=== PATIENT | female | born 1960 | race Two or more races ===

== ENCOUNTER 2023-03-20 10:25 | Inpatient (IN) | payer MEDICAID ==
[~2023-03-20] VITALS: Ht 152.4 cm; Wt 157.4 kg
--- NOTE | 2023-03-20 08:00 | NUR ---
LUG LOADER OPENING NOTE RECEIVED PT IN BED, ALERT , ORIENTED TIMES 4 , NON VERBAL DUE TO HAS TRACHEOSTOMY , WITH COLAR MASK O2 AT 6 L . PATIENT BREATHING NON LABORED , . O2 SAT 100 % . PATIENT HAS G TUBE IN PLACE INTACT AND PATENT, PATIENT HAS IV ACSESS ON R HAND 20G NO S/S OF INFILTRATION. BED IS AT LOWEST POSITION , BED SIDE RAILS ARE UP CALL LIGHT WITHIN REACH . WILL CONTINUE TO MONITOR.
--- NOTE | 2023-03-20 10:41 | NUR ---
CALL [facility] FOR GAS ENGINE OPERATOR COMPRESSORS AND TRANSPORT. TEL [phone] / FAX: [phone]
--- NOTE | 2023-03-20 10:54 | NUR ---
PATIENT CAME WITH C/O LOW BLOOD PRESSURE AFTER DIALYSIS,ON TRACH COLLAR WITH OXYGEN 6 LIT.ALERT .PLACED ON BED CONNECT TO MONITOR AND POX
--- NOTE | 2023-03-20 10:55 | NUR ---
IV INSERTED ON RT HAND 20G ,BLOOD COLLECTED AND SEND TO LAB.
[2023-03-20 11:20] LABS: BASOPHILS % (AUTO) 0.6 % (0.0-2.0); EOSINOPHILS % (AUTO) 6.2 % (0.0-6.0); HEMATOCRIT 29 % (33-45); HEMOGLOBIN 8.6 g/dL (11.5-14.8); LYMPHOCYTES # (AUTO) 1.5 K/uL (0.8-4.8); LYMPHOCYTES % (AUTO) 21.5 % (20.0-44.0); MEAN CORPUSCULAR HGB CONC 30 g/dl (31.0-36.0); MEAN CORPUSCULAR VOLUME 85 fL (82-100); MONOCYTES # (AUTO) 0.7 K/uL (0.1-1.30); MONOCYTES % (AUTO) 10.6 % (2.0-12.0); NEUTROPHILS # (AUTO) 4.2 K/uL (1.8-8.9); NEUTROPHILS % (AUTO) 61.1 % (43.0-81.0); PLATELET COUNT (AUTO) 322 K/uL (150-450); RED BLOOD CELL COUNT(AUTO) 3.37 MIL/uL (4.0-5.2)
[2023-03-20 11:29] LABS: CALCIUM, SERUM 8.7 mg/dL (8.5-10.1); CARBON DIOXIDE 33 mmol/L (21-32); CHLORIDE 99 mmol/L (98-107); CREATININE 3.6 mg/dL (0.6-1.3); GLUCOSE 80 mg/dL (74-106); POTASSIUM 3.4 mmol/L (3.5-5.1); SODIUM SERUM 137 mmol/L (136-145); UREA NITROGEN, BLOOD 12 mg/dL (7-18)
--- NOTE | 2023-03-20 12:40 | NUR ---
DR WAGNER,AN INFORMED REGARDING HYPOTENSION OF PT. AWAITING FOR ORDERS
--- NOTE | 2023-03-20 12:46 | NUR ---
CALLED DIALYSIS AND WAS TOLD THEY GAVE 2LITERS DUE TO HYPOTENSION
[2023-03-20] MEDS ORDERED: IV NS 0.9% 500 ML IV ONE (13:00)
--- NOTE | 2023-03-20 13:41 | NUR ---
DR PADRON INFORMED OF [facility] 87/38, PT WILL BE FOR ADMISSION.
--- NOTE | 2023-03-20 14:17 | NUR ---
DR PADRON INFORMED ABOUT LATEST VS, /60, LA 66, 100% RR 13
[2023-03-20] MEDS ORDERED: BENZ1LOZ58 MM (14:28)
[2023-03-20] MEDS ORDERED: GUAI100S11 PO (14:28)
[2023-03-20] MEDS ORDERED: PATI8.4P PO (14:28)
[2023-03-20] MEDS ORDERED: SENN-261 PO (14:28)
[2023-03-20] MEDS ORDERED: ROSU20TA2 PO (14:28)
[2023-03-20] MEDS ORDERED: SIME80TA15 PO (14:28)
[2023-03-20] MEDS ORDERED: MAG30ORA PO (14:28)
[2023-03-20] MEDS ORDERED: GABA-532 PO (14:28)
[2023-03-20] MEDS ORDERED: HYDR50TA61 PO (14:28)
[2023-03-20] MEDS ORDERED: PHEN177S31 MM (14:28)
[2023-03-20] MEDS ORDERED: ONDA-97 PO (14:28)
[2023-03-20] MEDS ORDERED: CALC500T13 PO (14:28)
[2023-03-20] MEDS ORDERED: FLUT16SP (14:28)
[2023-03-20] MEDS ORDERED: BUPR1FIL SL (14:28)
[2023-03-20] MEDS ORDERED: ASPI-992 PO (14:28)
[2023-03-20] MEDS ORDERED: ALBU2.5V38 IH (14:28)
[2023-03-20] MEDS ORDERED: TRAZ-182 PO (14:28)
[2023-03-20] MEDS ORDERED: OXYM-12 (14:28)
[2023-03-20] MEDS ORDERED: DICL100G34 TP (14:28)
[2023-03-20] MEDS ORDERED: POLY17PO4 PO (14:28)
[2023-03-20] MEDS ORDERED: CETI-108 PO (14:28)
[2023-03-20] MEDS ORDERED: HEPA50008 SQ (14:28)
[2023-03-20] MEDS ORDERED: AMLO2.5T4 PO (14:28)
[2023-03-20] MEDS ORDERED: FLUO20TA28 PO (14:28)
[2023-03-20] MEDS ORDERED: LIDO1ADH82 TP (14:28)
[2023-03-20] MEDS ORDERED: SEVE800T8 PO (14:28)
[2023-03-20] MEDS ORDERED: DIPH28CR10 TP (14:28)
[2023-03-20] MEDS ORDERED: FOLI0.8T2 PO (14:28)
--- NOTE | 2023-03-20 14:39 | NUR ---
[facility] CALLED MACHINE SPRAYER PAGED.
--- NOTE | 2023-03-20 15:04 | NUR ---
IN MAN INFORMED OF LATEST VS
--- NOTE | 2023-03-20 15:44 | NUR ---
DR PADRON INFORMED REGARDING OF NON ADMITTANCE TO TELE, DUE TO SYSTOLIC OF 72
--- NOTE | 2023-03-20 16:06 | NUR ---
COVID SWAB TAKEN AND SEND TO LAB.
--- NOTE | 2023-03-20 16:24 | NUR ---
GOT BED 119-1 ADMITTING INFORMED.
--- NOTE | 2023-03-20 16:35 | NUR ---
GAVE REPORT TO FRANKIE VALENCIA FOR JENNIFER, BED 119-1
--- NOTE | 2023-03-20 17:40 | NUR ---
international relations teacher note PATIENT IS ALERT , ORIENTED TIMES 4 , NON VERBAL DUE TO HAS TRACHEOSTOMY , WITH COLAR O 2 AT 5 L . PATIENT BREATHING NON LABORED , .UPON ADMISSION BP 138/78 , HR 69 , TEMP 98.2 , RESP 22 , O2 SAT 99 % . PATIENT C/O PAIN OF THE LOW BACK / , HAS SKIN LACERATION O0N THE RIGHT BUTTOCK , WOUND CONSULT ORDERED . PATIENT HAS G TUBE IN PLACE , BUT INSISTING THAT SHE CAN SWALLOW , SWALLOW EVAL ORDERED . B PATIENT HAS IV ACSESS ON R HAND 22 G .BED IS AT LOWEST POSITION , BED DIDE RAILS ARE UP CALL LIGHT WITHIN REACH , WILL CONTINUE TO MONITOR.
--- NOTE | 2023-03-20 17:57 | NUR ---
patient transfered to [facility]
[2023-03-20] MEDS ORDERED: MAG HYDROX/AL HYDROX/SIMETH 30 ML UDC PO PRN (18:30)
[2023-03-20] MEDS ORDERED: ZOLPIDEM TARTRATE 5 MG TABLET PO PRN (18:30)
[2023-03-20] MEDS ORDERED: ONDANSETRON HCL/PF 4 MG/2 ML VIAL IVP PRN (18:30)
[2023-03-20] MEDS ORDERED: Z GUARD REMEDY 4 OZ OINT TP PRN (18:30)
[2023-03-20] MEDS ORDERED: MAGNESIUM HYDROXIDE 30 ML UDC PO PRN (18:30)
[2023-03-20] MEDS ORDERED: ACETAMINOPHEN 325 MG TABLET PO PRN (18:30)
--- NOTE | 2023-03-20 18:59 | NUR ---
rn closing note PATIENT IS ALERT , ORIENTED TIMES 4 , NON VERBAL DUE TO HAS TRACHEOSTOMY , WITH COLAR O 2 AT 6 L . PATIENT BREATHING NON LABORED , . O2 SAT 99 % . PATIENT C/O PAIN OF THE LOW BACK 11/28 , HAS SKIN LACERATION ON THE RIGHT BUTTOCK , WOUND CONSULT ORDERED . PATIENT HAS G TUBE IN PLACE , BUT INSISTING THAT SHE CAN SWALLOW , SWALLOW EVAL ORDERED . PATIENT HAS IV ACSESS ON R HAND 22 G .BED IS AT LOWEST POSITION , BED DIDE RAILS ARE UP CALL LIGHT WITHIN REACH , WILL ENDORSE DATACAP DEVELOPER NURSE TO FALLOW POC
--- NOTE | 2023-03-21 06:46 | NUR ---
GENERAL TECHNICIAN CLOSING NOTE PT IN BED AWAKE, ON COOL AEROSOL 8L FIO2 35%, NO DISTRESS OR DISCOMFORT NOTED. DENIES PAIN. ALL NEEDS ATTENDED. KEEP DRY AND CLEAN. SIDE RAILS UP, CALL LIGHT WITHIN REACH, WILL ENDORSE TO DAY SHIFT NURSE FOR CONTINUITY OF CARE.
[2023-03-21 06:47] LABS: CALCIUM, SERUM 9.1 mg/dL (8.5-10.1); MAGNESIUM 2.6 mg/dL (1.8-2.4); PHOSPHORUS 4.3 mg/dL (2.5-4.9); POTASSIUM 4.6 mmol/L (3.5-5.1)
--- NOTE | 2023-03-21 07:15 | NUR ---
TELE OPEN NOTE: ALERT X3. REORIENTED NEEDED. TRACH IN PLACE, WITH COOL AEROSOL AT 35 % FIO2. MODERATE SECRETIONS, SUCTIONED NEEDED. TAILING HAND SINUS RHYTHM 75. RIGHT HAND IV G20 SALINE LOCKED, PATENT. NO S/S OF COMPLICATIONS. LEFT ARM AV FISTULA PER PATIENT DONE 2 WEEKS AGO AND NO IN USE YET. LEFT UPPER CHEST HD CATHETER WITH CLEAN DRESSING. NO S/S OF COMPLICATIONS. GASTRIC TUBE IN PLACE CLAMPED. PATIENT REQUESTING TO EAT BY MOUTH, PER RESIDENT SHE HAS BEEN EATING PRIOR TO HOSPITALIZATION AND GT NO IN USE. REQUESTING TO EAT. EXPLAINED WILL WAIT FOR SWALLOW EVALUATION. HOB ELEVATED. BILATERAL HALF SIDE RAILS UP X2. BED IN LOW POSITION, LOCKED AND EXIT ALARM ON. CALL LIGHT IN REACH.
[2023-03-21 07:18] LABS: BASOPHILS % (AUTO) 0.7 % (0.0-2.0); EOSINOPHILS % (AUTO) 7.1 % (0.0-6.0); HEMATOCRIT 28 % (33-45); HEMOGLOBIN 8.4 g/dL (11.5-14.8); LYMPHOCYTES # (AUTO) 1.6 K/uL (0.8-4.8); LYMPHOCYTES % (AUTO) 22.4 % (20.0-44.0); MEAN CORPUSCULAR HGB CONC 31 g/dl (31.0-36.0); MEAN CORPUSCULAR VOLUME 85 fL (82-100); MONOCYTES # (AUTO) 0.9 K/uL (0.1-1.30); MONOCYTES % (AUTO) 13.5 % (2.0-12.0); NEUTROPHILS % (AUTO) 56.3 % (43.0-81.0); PLATELET COUNT (AUTO) 321 K/uL (150-450); RED BLOOD CELL COUNT(AUTO) 3.27 MIL/uL (4.0-5.2)
--- NOTE | 2023-03-21 07:30 | NUR ---
GUDELIA ASHFORD INFORMED PATIENT REQUESTING TO EAT AND NO SPEECH THERAPIST ON SITE AT THIS TIME.
[2023-03-21 08:00] VITALS: BP 150/65; TEMP 98.2
[2023-03-21] MEDS: MIDODRINE HCL (5MG) 5 MG TABLET PO SCH ×3 (09:00→18:09)
--- NOTE | 2023-03-21 09:12 | NUR ---
DOCTOR GUDELIA INFORMED NO SPEECH THERAPIST AVAILABLE YET. PATIENT MIDODRINE HELD DUE TO BP 150/65, PER SON FARIDA HERCULES PATIENT ON SUBOXONE SL IF PATIENT DOES NOT GET IT SHE GETS IRRITATED. [place] [facility] INFORMED PATIENT HAS A GT, AND REMAINS NPO. IN MED RECON MEDS SUBOXENE IS ON THE LIST.
--- NOTE | 2023-03-21 09:34 | NUR ---
DOCTOR PELEG HERE ASSESSED PATIENT AND INFORMED SWALLOW EVAL BY SPEECH PENDING. DOCTOR PELEG WITH ORDER TO TO A SWALLOW EVAL SCREEN AT BEDSIDE BY NURSING WITH NO PMV DUE TO PATIENT HAS NOT BEEN TOLERATING IT PREVIOUSLY, WITH CUFF DEFLATED, GIVE SIP OF WATER IF TOLERATED MAY ADVANCE TO [facility] SOFT DIET.
--- NOTE | 2023-03-21 10:47 | NUR ---
DOCTOR PRADO AND DOCTOR GALEAS INFORMED PATIENT SCREEN DONE, AND PATIENT WAS ABLE TO DRINK PO FLUIDS WITH NO S/S OF ASPIRATION, NO COUGH, NO DISTRESS NOTED. PATIENT WITH NO TEETH PER PATIENT HER DENTURES BROKE BUT SHE HAS BEEN EATING MECHANICAL SOFT DIET FOR THE LAST 3 WEEKS WITH NO TEETH, DOES NOT WANT PUREE. DOCTOR PRADO TO RESUME DIET MECHANICAL SOFT WILL CONTINUE TO MONITOR.
[2023-03-21] MEDS ORDERED: MAG HYDROX/AL HYDROX/SIMETH 30 ML UDC PO PRN (15:30)
[2023-03-21] MEDS ORDERED: ALBUTEROL FS 2.5 MG/3 ML VIAL.NEB NEB PRN (15:30)
[2023-03-21] MEDS ORDERED: ONDANSETRON HCL/PF 4 MG/2 ML VIAL IV PRN (15:30)
[2023-03-21] MEDS ORDERED: MENTHOL/CETYLPYRD (CEPACOL) 1 LOZ LOZENGE PO PRN (15:30)
[2023-03-21] MEDS ORDERED: OXYMETAZOLINE HCL NASAL SPRAY 30 ML BOTTLE NS PRN (15:30)
[2023-03-21] MEDS ORDERED: hydrOXYzine PAMOATE 25 MG CAPSULE PO PRN (15:30)
[2023-03-21] MEDS ORDERED: PHENOL MM PRN (15:30)
[2023-03-21] MEDS ORDERED: GUAIFENESIN 300 MG/15 ML UDC PO PRN (15:30)
[2023-03-21] MEDS ORDERED: SIMETHICONE 80 MG TAB.CHEW PO PRN (15:30)
[2023-03-21] MEDS ORDERED: CALCIUM CARBONATE 500 MG TAB.CHEW PO PRN (15:30)
[2023-03-21] MEDS ORDERED: DICLOFENAC TOPICAL 100 GM TUBE TP PRN (15:30)
[2023-03-21] MEDS ORDERED: LIDOCAINE 5% (PATCH) 1 EA PATCH TP PRN (16:00)
--- NOTE | 2023-03-21 16:01 | NUR ---
DOCTOR GUDELIA INFORMED PER PHARMACY HOME MEDS SUBOXONE AND VELTASSA HOME MEDS NOT AVAILABLE, PHARMACY ONLY HAS BUPRENORPHINE WITHOUT THE NALOXONE. SON AND DAUGHTER LIVE IN [place], [facility] CANNOT DELIVER MEDS HERE.
--- NOTE | 2023-03-21 16:15 | NUR ---
SPOKE TO SON AND INFORMED HIM THAT SUBOXONE AND VELTASSA NOT AVAILABLE, STATED HE WILL CALL [facility] TO TRY TO HAVE THEM DELIVER IT HERE.
[2023-03-21] MEDS ORDERED: HEPARIN SODIUM, PORCINE 5000 UNITS/1 ML VIAL SQ SCH (17:00)
[2023-03-21] MEDS: GABAPENTIN 100 MG CAPSULE PO SCH (18:08)
[2023-03-21] MEDS: FLUTICASONE PROPIONATE 16 GM BOTTLE NS SCH (18:08)
[2023-03-21] MEDS: SEVELAMER CARBONATE 800 MG TABLET PO SCH (18:09)
[2023-03-21] MEDS: SENNOSIDES 8.6 MG TABLET PO SCH (18:12)
[2023-03-21] MEDS: POLYETHYLENE GLYCOL 3350 17 GM POWD.PACK PO SCH (18:12)
--- NOTE | 2023-03-21 19:00 | NUR ---
TELE CLOSING NOTE: ALERT X3. REORIENTED NEEDED. TRACH IN PLACE, WITH COOL AEROSOL AT 35 % FIO2. MODERATE SECRETIONS, SUCTIONED NEEDED. DEPARTMENT STORE GENERAL MANAGER SINUS RHYTHM 75. RIGHT HAND IV G20 SALINE LOCKED, PATENT. NO S/S OF COMPLICATIONS. ABLE TO TOLERATE MECHANICAL SOFT RENAL DIET WELL. HOB ELEVATED. BILATERAL HALF SIDE RAILS UP X2. BED IN LOW POSITION, LOCKED AND EXIT ALARM ON. CALL LIGHT IN REACH. PER SON FARIDA SOMEONE FROM FACILITY WILL BRING THE HOMEMEDS. REFUSED TO BE CLEANED AT THIS SCHEDULED TIME. SPEAKING TO SON AND DAUGHTER ON HER TABLET FACING TIME..
[2023-03-21 20:00] VITALS: BP 116/56; TEMP 98.2
--- NOTE | 2023-03-21 20:00 | NUR ---
PUBLIC WORKS SUPERVISOR NOTE PT IN BED AWAKE. A/O X 3, TPC ON COOL AEROSOL 8L O2 FIO2 35%. NO SOB, NO DISTRESS OR DISCOMFORT NOTED. DENIES PAIN. ON TELE SR WITH BBB HR 72. SL RT HAND #20 INTACT AND PATENT. SIDE RAILS UP X 2 AND CALL LIGHT WITHIN REACH. VSS. CONTINUE TO MONITOR HER.
[2023-03-21] MEDS: ATORVASTATIN 40 MG TABLET PO SCH (21:28)
[2023-03-21] MEDS: TRAZODONE 50 MG TABLET PO SCH (21:28)
[2023-03-21] MEDS: HEPARIN SODIUM, PORCINE 5000 UNITS/1 ML VIAL SQ SCH (21:28)
[2023-03-22] VITALS: BP 122/68; TEMP 97.9
[2023-03-22] MEDS ORDERED: PATI8.4P PO (02:00)
[2023-03-22] MEDS ORDERED: BUPR1TAB44 SL (02:00)
[2023-03-22 04:00] VITALS: BP 112/84; TEMP 98.5
--- NOTE | 2023-03-22 06:38 | NUR ---
VALET PARKING ATTENDANT NOTE PT IN BED ALSEEP, AROUSABLE. NO DISTRESS OR DISCOMFORT NOTED. NO S/S OF PAIN NOTED. KEPT HER DRY AND CLEAN. ALL NEEDS ATTENDED. WILL ENDORSE TO DAY SHIFT NURSE FOR CONTINUE TO CARE.
[2023-03-22 07:03] LABS: BASOPHILS % (AUTO) 0.5 % (0.0-2.0); EOSINOPHILS % (AUTO) 7.6 % (0.0-6.0); HEMATOCRIT 28 % (33-45); HEMOGLOBIN 8.7 g/dL (11.5-14.8); LYMPHOCYTES # (AUTO) 1.6 K/uL (0.8-4.8); LYMPHOCYTES % (AUTO) 24.2 % (20.0-44.0); MEAN CORPUSCULAR HGB CONC 31 g/dl (31.0-36.0); MEAN CORPUSCULAR VOLUME 83 fL (82-100); MONOCYTES # (AUTO) 0.8 K/uL (0.1-1.30); MONOCYTES % (AUTO) 12.9 % (2.0-12.0); NEUTROPHILS # (AUTO) 3.6 K/uL (1.8-8.9); NEUTROPHILS % (AUTO) 54.8 % (43.0-81.0); PLATELET COUNT (AUTO) 312 K/uL (150-450); RED BLOOD CELL COUNT(AUTO) 3.32 MIL/uL (4.0-5.2); WHITE BLOOD COUNT (AUTO) 6.5 K/uL (4.3-11.0)
[2023-03-22 07:21] LABS: CALCIUM, SERUM 9.2 mg/dL (8.5-10.1); CREATININE 6.6 mg/dL (0.6-1.3); MAGNESIUM 2.5 mg/dL (1.8-2.4); PHOSPHORUS 4.7 mg/dL (2.5-4.9); POTASSIUM 4.5 mmol/L (3.5-5.1)
[2023-03-22 08:00] VITALS: BP 143/72; TEMP 98.7
--- NOTE | 2023-03-22 08:06 | NUR ---
RN OPENING NOTE RECEIVED PATIENT IN BED AO x 3, ABLE TO RESPONDS PHYSICAL STIMULI. PATIENT IS ON THE TRACH AND VENTILATOR, RESPIRATORY EVEN AND UNLABORED. IN NO ACUTE RESPIRATORY DISTRESS OBSERVED. SKIN IS WARM TO TOUCH, KEEP CLEAN/DRY. KEPT ELEVATED HOB FOR ASPIRATION PRECAUTION/ ENSURE AIRWAY, AND LOWEST BED POSITIONED. BED ALARM IS ON AT ALL TIMES FOR SAFETY. CALL LIGHT WITHIN REACH, WILL CONTINUE TO MONITOR.
[2023-03-22] MEDS: MIDODRINE HCL (5MG) 5 MG TABLET PO SCH ×3 (09:00→17:00)
[2023-03-22] MEDS: FLUOXETINE HCL 20 MG CAPSULE PO SCH (09:04)
[2023-03-22] MEDS: POLYETHYLENE GLYCOL 3350 17 GM POWD.PACK PO SCH ×2 (09:04→17:11)
[2023-03-22] MEDS: VITAMIN B COMP W-C 1 TAB TABLET PO SCH (09:05)
[2023-03-22] MEDS: AMLODIPINE BESYLATE 2.5 MG TABLET PO SCH (09:05)
[2023-03-22] MEDS: ASPIRIN 325 MG TABLET PO SCH (09:05)
[2023-03-22] MEDS: SEVELAMER CARBONATE 800 MG TABLET PO SCH ×3 (09:05→17:11)
[2023-03-22] MEDS: SENNOSIDES 8.6 MG TABLET PO SCH ×2 (09:05→17:11)
[2023-03-22] MEDS: cetrizine 10 MG TABLET PO SCH (09:05)
[2023-03-22] MEDS: GABAPENTIN 100 MG CAPSULE PO SCH ×2 (09:05→17:11)
--- NOTE | 2023-03-22 09:06 | NUR ---
bp 143/72, will hold midodrine at this time.
[2023-03-22] MEDS: HEPARIN SODIUM, PORCINE 5000 UNITS/1 ML VIAL SQ SCH ×2 (09:08→21:36)
[2023-03-22] MEDS: FLUTICASONE PROPIONATE 16 GM BOTTLE NS SCH ×2 (09:11→17:13)
[2023-03-22 12:00] VITALS: BP 147/70; TEMP 98.7
[2023-03-22] MEDS: BUPRENORPHINE NALOXONE SL SCH ×2 (12:26→16:24)
[2023-03-22] MEDS: VELTASSA 8.4 GM PO SCH (12:26)
[2023-03-22 16:00] VITALS: BP 143/72; TEMP 98.9
[2023-03-22] MEDS ORDERED: KEY,NONCONTROL,TO KEEP IN PYXI 1 EA MC ONE (16:25)
--- NOTE | 2023-03-22 17:12 | NUR ---
SBP > 130, WILL HOLD MIDODRINE.
--- NOTE | 2023-03-22 19:30 | NUR ---
RN OPENING NOTE RECEIVED PATIENT AWAKE IN BED WATCHING TV AT THIS TIME. A/O X3, ABLE TO MAKE NEEDS KNOWN, MOUTHING WORDS AND WRITING ON PAPER. PATIENT IS ON THE TRACH, RESPIRATORY EVEN AND UNLABORED. IN NO ACUTE RESPIRATORY DISTRESS OBSERVED. SKIN IS WARM TO TOUCH, KEEP CLEAN/DRY. HOB ELEVATED FOR ASPIRATION PRECAUTION/ENSURE AIRWAY. SAFETY PRECAUTIONS IN PLACE: BED LOCKED AND IN LOWEST POSITION, BED ALARM ON, SIDE RAILS X3, CALL LIGHT AND TRAY TABLE WITHIN REACH. WILL CONTINUE TO MONITOR AND ASSIST. Addendum: 03/22/23 at 2315 by HASMUKH PAINTER RN IV ACCESS R HAND #20G SL, PATENT, INTACT, FLUSHING WELL. Addendum: 03/22/23 at 2320 by HASMUKH PAINTER RN ON ROBOTICS TESTING TECHNICIAN READING SR WITH BBB, 71 HR.
--- NOTE | 2023-03-22 19:45 | NUR ---
RN NOTE: NOTED SOME BLEEDING ON TRACH DRESSING, CHANGED BY DAY SHIFT NURSE. TRACH SUCTIONED BY RT, NO BLEEDING NOTED IN SECRETION. Addendum: 03/22/23 at 2239 by HASMUKH PAINTER RN INFORMED DEVELOPMENT ASSOCIATE BARB FREEMAN OF PREVIOUS BLEEDING NOTED, CLARIFIED IF HEPARIN SCHEDULED FOR TONIGHT IS OKAY TO GIVE. HOSPITALIST SAID YES.
[2023-03-22 20:00] VITALS: BP 101/62; TEMP 98.4
[2023-03-22] MEDS: ATORVASTATIN 40 MG TABLET PO SCH (21:32)
--- NOTE | 2023-03-22 21:45 | NUR ---
RN NOTE: PT VERBALIZED THAT SHE TAKES DESYREL SCHEDULED FOR 0 AROUND 11 PM. OFFERED TO GIVE AROUND 2244, PT STATED AGREEMENT.
[2023-03-22] MEDS: TRAZODONE 50 MG TABLET PO SCH (22:45)
[2023-03-23] VITALS: BP 112/73; TEMP 98
[2023-03-23 04:00] VITALS: BP 108/69; TEMP 98
--- NOTE | 2023-03-23 07:01 | NUR ---
RN CLOSING NOTE PATIENT AWAKE IN BED WATCHING TV AT THIS TIME. A/O X3, ABLE TO MAKE NEEDS KNOWN, MOUTHING WORDS AND WRITING ON PAPER. PATIENT IS ON THE TRACH, RESPIRATORY EVEN AND UNLABORED. IN NO ACUTE RESPIRATORY DISTRESS OBSERVED. ON ART DEALER READING SR WITH BBB, 78 HR. IV ACCESS R HAND #20G SL, PATENT, INTACT, FLUSHING WELL. SKIN IS WARM TO TOUCH, KEEP CLEAN/DRY. HOB ELEVATED FOR ASPIRATION PRECAUTION/ENSURE AIRWAY. WOUND CARE PERFORMED. TURNED AND REPOSITIONED PER PROTOCOL. SUCTIONED PRN. SAFETY PRECAUTIONS MAINTAINED: BED LOCKED AND IN LOWEST POSITION, BED ALARM ON, SIDE RAILS X3, CALL LIGHT AND TRAY TABLE WITHIN REACH. WILL ENDORSE JENNIFER TO DAY SHIFT NURSE.
[2023-03-23 07:04] LABS: BASOPHILS # (AUTO) 0.1 K/uL (0.0-0.2); BASOPHILS % (AUTO) 0.6 % (0.0-2.0); EOSINOPHILS % (AUTO) 6.6 % (0.0-6.0); HEMATOCRIT 33 % (33-45); HEMOGLOBIN 9.5 g/dL (11.5-14.8); LYMPHOCYTES # (AUTO) 2.1 K/uL (0.8-4.8); LYMPHOCYTES % (AUTO) 25.5 % (20.0-44.0); MEAN CORPUSCULAR HGB CONC 29 g/dl (31.0-36.0); MEAN CORPUSCULAR VOLUME 87 fL (82-100); MONOCYTES % (AUTO) 12.3 % (2.0-12.0); NEUTROPHILS # (AUTO) 4.4 K/uL (1.8-8.9); PLATELET COUNT (AUTO) 303 K/uL (150-450); RED BLOOD CELL COUNT(AUTO) 3.78 MIL/uL (4.0-5.2); WHITE BLOOD COUNT (AUTO) 8.1 K/uL (4.3-11.0)
[2023-03-23 07:21] LABS: CALCIUM, SERUM 9.5 mg/dL (8.5-10.1); MAGNESIUM 2.7 mg/dL (1.8-2.4); PHOSPHORUS 4.9 mg/dL (2.5-4.9); POTASSIUM 4.9 mmol/L (3.5-5.1)
[2023-03-23 07:24] LABS: CREATININE 7.8 mg/dL (0.6-1.3)
[2023-03-23 08:00] VITALS: BP 112/66; TEMP 98.1
--- NOTE | 2023-03-23 08:00 | NUR ---
RN OPENING NOTE PATIENT AWAKE IN BED WATCHING TV AT THIS TIME. A/O X3, ABLE TO MAKE NEEDS KNOWN, MOUTHING WORDS AND WRITING ON PAPER. PATIENT IS ON THE TRACH, RESPIRATORY EVEN AND UNLABORED. IN NO ACUTE RESPIRATORY DISTRESS OBSERVED. ON VETERINARY SCIENCE TEACHER READING SR WITH BBB, 71 HR. IV ACCESS R HAND #20G SL, PATENT, INTACT, FLUSHING WELL. SKIN IS WARM TO TOUCH, KEEP CLEAN/DRY. HOB ELEVATED FOR ASPIRATION PRECAUTION/ENSURE AIRWAY. SAFETY PRECAUTIONS MAINTAINED, BED LOCKED AND IN LOWEST POSITION, BED ALARM ON, SIDE RAILS X3, CALL LIGHT AND TABLE WITHIN REACH. WILL CONTINUE TO MONITOR.
[2023-03-23] MEDS: SEVELAMER CARBONATE 800 MG TABLET PO SCH ×2 (09:00→13:19)
[2023-03-23] MEDS: MIDODRINE HCL (5MG) 5 MG TABLET PO SCH ×2 (09:00→13:19)
[2023-03-23] MEDS: AMLODIPINE BESYLATE 2.5 MG TABLET PO SCH (09:00)
[2023-03-23] MEDS ORDERED: KEY,NONCONTROL,TO KEEP IN PYXI 1 EA MC ONE ×3 (09:16→11:31)
[2023-03-23] MEDS: BUPRENORPHINE NALOXONE SL SCH (09:29)
[2023-03-23] MEDS: FLUTICASONE PROPIONATE 16 GM BOTTLE NS SCH (09:30)
[2023-03-23] MEDS: POLYETHYLENE GLYCOL 3350 17 GM POWD.PACK PO SCH (09:30)
[2023-03-23] MEDS: GABAPENTIN 100 MG CAPSULE PO SCH (09:31)
[2023-03-23] MEDS: SENNOSIDES 8.6 MG TABLET PO SCH (09:31)
[2023-03-23] MEDS: VITAMIN B COMP W-C 1 TAB TABLET PO SCH (09:31)
[2023-03-23] MEDS: cetrizine 10 MG TABLET PO SCH (09:31)
[2023-03-23] MEDS: FLUOXETINE HCL 20 MG CAPSULE PO SCH (09:32)
[2023-03-23] MEDS: ASPIRIN 325 MG TABLET PO SCH (09:32)
--- NOTE | 2023-03-23 09:34 | NUR ---
RN NOTE PATIENT IN DIALYSIS, NO BLOOD PRESSURE GIVEN
[2023-03-23] MEDS: HEPARIN SODIUM, PORCINE 5000 UNITS/1 ML VIAL SQ SCH (09:43)
[2023-03-23] MEDS: VELTASSA 8.4 GM PO SCH (09:55)
[2023-03-23 12:00] VITALS: BP 100/61; TEMP 98.7
--- NOTE | 2023-03-23 12:14 | NUR ---
RN NOTE DIALYSIS DONE, 2 L OF FLUID TAKEN OUT. PATIENT TOLERATED PROCEDURE WELL.
[2023-03-23 13:19] VITALS: BP 100/67
--- NOTE | 2023-03-23 15:22 | NUR ---
RN NOTE PATIENT WAS DISCHARGE TO [facility] VIA GURNEY WITH [facility]. PATIENT LEFT IN STABLED CONDITION, ALERT, ORIENTED X4 WITH NO SOB, PAIN, DISTRESS OR DISCOMFORT. IV ACCESS REMOVED, DRESSING INTACT. NO BLEEDING NOTED. PATIENT SIGNED ALL DISCHARGE FORMS INCLUDING BELONGINGS. ALL BELONGINGS WITH PATIENT. PATIENT LEFT WITH FIVE ROLL SLICING MACHINE TENDER FROM [facility].
== END 2023-03-23 15:30 | DRG 207 ==
LOC: ER 10:40 → TELE1 16:52 → TELE-TD 17:52 → TELE1 21:04
PROVIDERS: ADMIT Student in an Organized Health Care Education/Training Program; ATTEND Student in an Organized Health Care Education/Training Program
PROC: 5A1D70Z Performance of Urinary Filtration, Intermittent, Less than 6 Hours Per Day (ICD-10-PCS; principal; 2023-03-22)
DX: I95.3 Hypotension of hemodialysis (principal); J96.20 Acute and chronic respiratory failure, unspecified whether with hypoxia or hypercapnia; D63.8 Anemia in other chronic diseases classified elsewhere; E66.2 Morbid (severe) obesity with alveolar hypoventilation; E83.9 Disorder of mineral metabolism, unspecified; E87.1 Hypo-osmolality and hyponatremia; I12.0 Hypertensive chronic kidney disease with stage 5 chronic kidney disease or end stage renal disease; J90 Pleural effusion, not elsewhere classified; N18.6 End stage renal disease; E87.6 Hypokalemia; Z99.2 Dependence on renal dialysis; E78.5 Hyperlipidemia, unspecified; Z99.81 Dependence on supplemental oxygen; Z93.0 Tracheostomy status; Z93.1 Gastrostomy status; Z68.44 Body mass index [BMI] 60.0-69.9, adult
CPT/HCPCS: 31720; 36415; 71045-TC; 76770-TC; 80048-TC; 83735-TC; 83880; 84100-TC; 84484-TC; 85025-TC; 86706; 87081-TC; 87340; 90935-TC; 93307-TC; 94640-TC; 94799-TC; A4223; A7526; G0378; J1644; J7030; J7040; J7050

== ENCOUNTER 2023-06-11 18:35 | Inpatient (IN) | payer MEDICAID ==
[~2023-06-11] VITALS: Ht 152.4 cm; Wt 151.0 kg
[~2023-06-11 18:35] MED LIST: ALBU2.5V38 IH; AMLO2.5T4 PO; ASPI-992 PO; BENZ1LOZ58 MM; BUPR1FIL SL; BUPR1TAB44 SL; CALC500T13 PO; CETI-108 PO; DICL100G34 TP; DIPH28CR10 TP; FLUO20TA28 PO; FLUT16SP; FOLI0.8T2 PO; GABA-532 PO; GUAI100S11 PO; HEPA50008 SQ; HYDR50TA61 PO; LIDO1ADH82 TP; MAG30ORA PO; ONDA-97 PO; OXYM-12; PATI8.4P PO; PHEN177S31 MM; POLY17PO4 PO; ROSU20TA2 PO; SENN-261 PO; SEVE800T8 PO; SIME80TA15 PO; TRAZ-182 PO
[2023-06-11 19:25] LABS: BASOPHILS # (AUTO) 0.1 K/uL (0.0-0.2); BASOPHILS % (AUTO) 1.2 % (0.0-2.0); EOSINOPHILS # (AUTO) 0.6 K/uL (0.0-0.7); EOSINOPHILS % (AUTO) 6.1 % (0.0-6.0); HEMATOCRIT 31 % (33-45); HEMOGLOBIN 9.7 g/dL (11.5-14.8); LYMPHOCYTES # (AUTO) 1.4 K/uL (0.8-4.8); LYMPHOCYTES % (AUTO) 15.4 % (20.0-44.0); MEAN CORPUSCULAR HEMOGLOBIN 28 PG (26.0-33.0); MEAN CORPUSCULAR HGB CONC 31 g/dl (31.0-36.0); MEAN CORPUSCULAR VOLUME 89 fL (82-100); MONOCYTES # (AUTO) 0.7 K/uL (0.1-1.30); MONOCYTES % (AUTO) 7.4 % (2.0-12.0); NEUTROPHILS # (AUTO) 6.5 K/uL (1.8-8.9); NEUTROPHILS % (AUTO) 69.9 % (43.0-81.0); PLATELET COUNT (AUTO) 394 K/uL (150-450); RED BLOOD CELL COUNT(AUTO) 3.53 MIL/uL (4.0-5.2); RED CELL DISTRIBUTION WIDTH 16.9 % (11.5-15.0); WHITE BLOOD COUNT (AUTO) 9.3 K/uL (4.3-11.0)
[2023-06-11 19:41] LABS: CALCIUM, SERUM 9.5 mg/dL (8.5-10.1); POTASSIUM 5.3 mmol/L (3.5-5.1)
[2023-06-11 19:47] LABS: ALBUMIN 3.5 g/dL (3.4-5.0); BILIRUBIN,DIRECT 0.1 mg/dL (0.0-0.2); BILIRUBIN,TOTAL 0.3 mg/dL (0.2-1.0); CREATININE 7.9 mg/dL (0.6-1.3); TOTAL PROTEIN, SERUM 8.1 g/dL (6.4-8.2)
[2023-06-11 19:49] LABS: INR 1.08 (0.91-1.10); PARTIAL THROMBOPLASTIN TIME 31.6 SEC (24.3-34.3); PROTHROMBIN TIME 11.3 SECS (9.2-11.1)
[2023-06-11] MEDS ORDERED: CALCIUM CHLORIDE 1,000 MG/10 ML DISP.SYRIN IV ONE (20:30)
[2023-06-11] MEDS ORDERED: ALBUTEROL FS 2.5 MG/3 ML VIAL.NEB NEB ONE (20:30)
[2023-06-11] MEDS ORDERED: SODIUM POLYSTYRENE SULFONATE 15 G/60 ML BOTTLE PO ONE (20:30)
[2023-06-11] MEDS ORDERED: INSULIN REGULAR, HUMAN 100 UNIT/ML 10 ML VIAL IV ONE (20:30)
[2023-06-11] MEDS ORDERED: DEXTROSE 50%-WATER 50 ML DISP.SYRIN IV ONE (20:30)
[2023-06-11 20:48] VITALS: O2SAT 99
[2023-06-11 20:58] VITALS: O2SAT 100
[2023-06-11] MEDS ORDERED: ALBUTEROL FS 2.5 MG/3 ML VIAL.NEB IH PRN (21:00)
[2023-06-11] MEDS ORDERED: SIMETHICONE 80 MG TAB.CHEW PO PRN (21:00)
[2023-06-11] MEDS ORDERED: hydrALAZINE HCL IV 20 MG VIAL IV PRN (21:00)
[2023-06-11] MEDS ORDERED: MORPHINE SULFATE INJ 2 MG/ML DISP.SYRIN IV PRN (21:00)
[2023-06-11 21:45] LABS: ANISOCYTOSIS 1+; EOSINOPHILS % (MANUAL) 6 % (0-4); LYMPHOCYTES % (MANUAL) 27 % (16-48); MONOCYTES % (MANUAL) 7 % (0-11.0); NEUTROPHILS % (MANUAL) 60 (42-76); PLATELET ESTIMATE ADEQUATE
[2023-06-11 22:30] VITALS: BP 175/87; TEMP 98.1; O2SAT 96
[2023-06-11 23:21] VITALS: O2SAT 100
[2023-06-12] VITALS (11 sets, daily range): BP systolic 121–156; BP diastolic 69–79; TEMP 97.9–98.8; O2SAT 96–100
[2023-06-12] MEDS: HEPARIN SODIUM, PORCINE 5000 UNITS/1 ML VIAL SQ SCH ×3 (01:02→22:07)
[2023-06-12] MEDS: TRAZODONE 50 MG TABLET PO SCH ×2 (01:03→22:08)
[2023-06-12 07:10] LABS: BASOPHILS # (AUTO) 0.1 K/uL (0.0-0.2); BASOPHILS % (AUTO) 1.1 % (0.0-2.0); EOSINOPHILS # (AUTO) 0.6 K/uL (0.0-0.7); EOSINOPHILS % (AUTO) 6.6 % (0.0-6.0); HEMATOCRIT 31 % (33-45); HEMOGLOBIN 9.5 g/dL (11.5-14.8); LYMPHOCYTES # (AUTO) 1.5 K/uL (0.8-4.8); LYMPHOCYTES % (AUTO) 18.3 % (20.0-44.0); MEAN CORPUSCULAR HEMOGLOBIN 28 PG (26.0-33.0); MEAN CORPUSCULAR HGB CONC 31 g/dl (31.0-36.0); MEAN CORPUSCULAR VOLUME 91 fL (82-100); MONOCYTES # (AUTO) 0.8 K/uL (0.1-1.30); MONOCYTES % (AUTO) 9.7 % (2.0-12.0); NEUTROPHILS # (AUTO) 5.4 K/uL (1.8-8.9); NEUTROPHILS % (AUTO) 64.3 % (43.0-81.0); PLATELET COUNT (AUTO) 362 K/uL (150-450); RED BLOOD CELL COUNT(AUTO) 3.41 MIL/uL (4.0-5.2); RED CELL DISTRIBUTION WIDTH 17.1 % (11.5-15.0); WHITE BLOOD COUNT (AUTO) 8.3 K/uL (4.3-11.0)
[2023-06-12 07:34] LABS: ALBUMIN 3.1 g/dL (3.4-5.0); BILIRUBIN,TOTAL 0.3 mg/dL (0.2-1.0); CALCIUM, SERUM 9.8 mg/dL (8.5-10.1); MAGNESIUM 2.5 mg/dL (1.8-2.4); PHOSPHORUS 3.7 mg/dL (2.5-4.9); POTASSIUM 4.8 mmol/L (3.5-5.1); TOTAL PROTEIN, SERUM 7.2 g/dL (6.4-8.2)
[2023-06-12 07:37] LABS: CREATININE 8.3 mg/dL (0.6-1.3)
[2023-06-12] MEDS ORDERED: ZINC50TA69 PO (08:45)
[2023-06-12] MEDS ORDERED: BUSP10TA35 PO (08:45)
[2023-06-12] MEDS ORDERED: AMIN30LI2 PO (08:45)
[2023-06-12] MEDS ORDERED: CHOL100043 PO (08:45)
[2023-06-12] MEDS ORDERED: SEMA0.25 SQ (08:45)
[2023-06-12] MEDS ORDERED: MIDO5TAB4 PO (08:45)
[2023-06-12] MEDS ORDERED: ASCO-495 PO (08:45)
[2023-06-12] MEDS ORDERED: MAG-151 PO (08:45)
[2023-06-12] MEDS ORDERED: POLYETHYLENE GLYCOL 3350 17 GM POWD.PACK PO SCH (09:00)
[2023-06-12] MEDS: SEVELAMER CARBONATE 800 MG TABLET PO SCH ×3 (09:00→18:27)
[2023-06-12] MEDS: FLUOXETINE HCL 20 MG CAPSULE PO SCH (09:01)
[2023-06-12] MEDS: ASPIRIN 325 MG TABLET PO SCH (09:01)
[2023-06-12] MEDS: VIT B CMPLX 3/FA/VIT C/BIOTIN 1 TAB TABLET PO SCH (09:04)
[2023-06-12] MEDS: DOCUSATE SODIUM LIQ 100 MG/10 ML UDC PO SCH ×2 (09:04→18:27)
[2023-06-12] MEDS: GABAPENTIN 100 MG CAPSULE PO SCH ×2 (09:04→18:28)
[2023-06-12] MEDS: AMLODIPINE BESYLATE 2.5 MG TABLET PO SCH (09:08)
[2023-06-12] MEDS: Z GUARD REMEDY 4 OZ OINT TP SCH (10:53)
[2023-06-12] MEDS: THERAHONEY GEL 1.5 OZ TUBE TP SCH (10:53)
[2023-06-12] MEDS: ACETAMINOPHEN 325 MG TABLET PO PRN (11:15)
[2023-06-12] MEDS ORDERED: OXYMETAZOLINE HCL NASAL SPRAY 30 ML BOTTLE NS PRN (13:00)
[2023-06-12] MEDS: PROSOURCE / PROSTAT (PYXIS) 30 ML UDC PO SCH ×2 (13:00→18:28)
[2023-06-12] MEDS ORDERED: GUAIFENESIN 300 MG/15 ML UDC PO PRN (13:00)
[2023-06-12] MEDS ORDERED: CALCIUM CARBONATE 500 MG TAB.CHEW PO PRN (13:00)
[2023-06-12] MEDS ORDERED: DICLOFENAC TOPICAL 100 GM TUBE TP PRN (13:00)
[2023-06-12] MEDS ORDERED: HYDROCODONE/APAP 10/325MG TABLET PO PRN (15:00)
[2023-06-12] MEDS: HYDROCODONE/APAP 10/325MG TABLET PO PRN ×2 (15:47→22:14)
[2023-06-12] MEDS: busPIRone 5 MG TABLET PO SCH (18:28)
[2023-06-12] MEDS: SENNOSIDES 8.6 MG TABLET PO SCH (18:28)
[2023-06-12] MEDS: FLUTICASONE PROPIONATE 16 GM BOTTLE NS SCH (18:30)
[2023-06-12] MEDS: POLYETHYLENE GLYCOL 3350 17 GM POWD.PACK PO SCH (18:30)
[2023-06-12] MEDS: ARGININE/GLUTAMINE/CALCIUM BMB 1 EACH POWD.PACK PO SCH (18:32)
[2023-06-12] MEDS: CLOTRIMAZOLE 1% 15 GM TUBE TP SCH (18:32)
[2023-06-12] MEDS: ATORVASTATIN 40 MG TABLET PO SCH (22:39)
[2023-06-13] VITALS (11 sets, daily range): BP systolic 126–148; BP diastolic 72–87; TEMP 97.8–99; O2SAT 94–98
[2023-06-13] MEDS: HYDROCODONE/APAP 10/325MG TABLET PO PRN ×2 (05:31→23:25)
[2023-06-13 06:20] LABS: BASOPHILS # (AUTO) 0.1 K/uL (0.0-0.2); BASOPHILS % (AUTO) 0.7 % (0.0-2.0); EOSINOPHILS # (AUTO) 0.6 K/uL (0.0-0.7); EOSINOPHILS % (AUTO) 6.6 % (0.0-6.0); HEMATOCRIT 30 % (33-45); HEMOGLOBIN 9.4 g/dL (11.5-14.8); LYMPHOCYTES # (AUTO) 1.5 K/uL (0.8-4.8); LYMPHOCYTES % (AUTO) 18.6 % (20.0-44.0); MEAN CORPUSCULAR HEMOGLOBIN 28 PG (26.0-33.0); MEAN CORPUSCULAR HGB CONC 31 g/dl (31.0-36.0); MEAN CORPUSCULAR VOLUME 89 fL (82-100); MONOCYTES # (AUTO) 0.8 K/uL (0.1-1.30); MONOCYTES % (AUTO) 9.5 % (2.0-12.0); NEUTROPHILS # (AUTO) 5.4 K/uL (1.8-8.9); NEUTROPHILS % (AUTO) 64.6 % (43.0-81.0); PLATELET COUNT (AUTO) 374 K/uL (150-450); RED CELL DISTRIBUTION WIDTH 16.9 % (11.5-15.0); WHITE BLOOD COUNT (AUTO) 8.3 K/uL (4.3-11.0)
[2023-06-13 06:51] LABS: CALCIUM, SERUM 9.2 mg/dL (8.5-10.1); CREATININE 6.9 mg/dL (0.6-1.3); MAGNESIUM 2.4 mg/dL (1.8-2.4); PHOSPHORUS 3.3 mg/dL (2.5-4.9); POTASSIUM 4.6 mmol/L (3.5-5.1)
[2023-06-13] MEDS: PROSOURCE / PROSTAT (PYXIS) 30 ML UDC PO SCH ×3 (08:00→17:34)
[2023-06-13] MEDS: ONDANSETRON HCL/PF 4 MG/2 ML VIAL IVP PRN (08:36)
[2023-06-13] MEDS: PROSOURCE / PROSTAT (PYXIS) 30 ML UDC GT SCH (09:00)
[2023-06-13] MEDS: SENNOSIDES 8.6 MG TABLET PO SCH ×2 (09:00→17:00)
[2023-06-13] MEDS: ARGININE/GLUTAMINE/CALCIUM BMB 1 EACH POWD.PACK PO SCH ×2 (09:00→17:34)
[2023-06-13] MEDS: DOCUSATE SODIUM LIQ 100 MG/10 ML UDC PO SCH ×2 (09:00→17:00)
[2023-06-13] MEDS: POLYETHYLENE GLYCOL 3350 17 GM POWD.PACK PO SCH ×2 (09:00→17:00)
[2023-06-13] MEDS: ASCORBIC ACID 500 MG TABLET PO SCH (09:43)
[2023-06-13] MEDS: AMLODIPINE BESYLATE 2.5 MG TABLET PO SCH (09:46)
[2023-06-13] MEDS: cetrizine 10 MG TABLET PO SCH (09:47)
[2023-06-13] MEDS: VIT B CMPLX 3/FA/VIT C/BIOTIN 1 TAB TABLET PO SCH (09:51)
[2023-06-13] MEDS: FLUOXETINE HCL 20 MG CAPSULE PO SCH (09:53)
[2023-06-13] MEDS: GABAPENTIN 100 MG CAPSULE PO SCH ×2 (09:53→17:34)
[2023-06-13] MEDS: ASPIRIN 325 MG TABLET PO SCH (09:57)
[2023-06-13] MEDS: busPIRone 5 MG TABLET PO SCH ×2 (09:57→17:34)
[2023-06-13] MEDS: SEVELAMER CARBONATE 800 MG TABLET PO SCH ×3 (09:57→17:35)
[2023-06-13] MEDS: FLUTICASONE PROPIONATE 16 GM BOTTLE NS SCH ×2 (09:57→17:35)
[2023-06-13] MEDS: Z GUARD REMEDY 4 OZ OINT TP SCH (10:02)
[2023-06-13] MEDS: THERAHONEY GEL 1.5 OZ TUBE TP SCH (10:03)
[2023-06-13] MEDS: CLOTRIMAZOLE 1% 15 GM TUBE TP SCH ×2 (10:03→17:35)
[2023-06-13] MEDS: HEPARIN SODIUM, PORCINE 5000 UNITS/1 ML VIAL SQ SCH ×2 (10:06→22:01)
[2023-06-13] MEDS: hydrOXYzine 10 MG TABLET PO PRN (13:39)
[2023-06-13] MEDS: ATORVASTATIN 40 MG TABLET PO SCH (22:01)
[2023-06-13] MEDS: TRAZODONE 50 MG TABLET PO SCH (22:01)
[2023-06-14] VITALS (12 sets, daily range): BP systolic 116–148; BP diastolic 69–98; TEMP 97.9–98.8; O2SAT 96–100
[2023-06-14] MEDS: HYDROCODONE/APAP 10/325MG TABLET PO PRN ×2 (05:10→20:22)
[2023-06-14 06:16] LABS: BASOPHILS % (AUTO) 0.5 % (0.0-2.0); EOSINOPHILS # (AUTO) 0.6 K/uL (0.0-0.7); EOSINOPHILS % (AUTO) 6.6 % (0.0-6.0); HEMATOCRIT 31 % (33-45); HEMOGLOBIN 9.9 g/dL (11.5-14.8); LYMPHOCYTES # (AUTO) 1.9 K/uL (0.8-4.8); LYMPHOCYTES % (AUTO) 22.1 % (20.0-44.0); MEAN CORPUSCULAR HEMOGLOBIN 28 PG (26.0-33.0); MEAN CORPUSCULAR HGB CONC 32 g/dl (31.0-36.0); MEAN CORPUSCULAR VOLUME 89 fL (82-100); MONOCYTES # (AUTO) 0.8 K/uL (0.1-1.30); MONOCYTES % (AUTO) 9.5 % (2.0-12.0); NEUTROPHILS # (AUTO) 5.3 K/uL (1.8-8.9); NEUTROPHILS % (AUTO) 61.3 % (43.0-81.0); PLATELET COUNT (AUTO) 374 K/uL (150-450); RED BLOOD CELL COUNT(AUTO) 3.54 MIL/uL (4.0-5.2); RED CELL DISTRIBUTION WIDTH 17.1 % (11.5-15.0); WHITE BLOOD COUNT (AUTO) 8.6 K/uL (4.3-11.0)
[2023-06-14 06:29] LABS: CALCIUM, SERUM 9.4 mg/dL (8.5-10.1); MAGNESIUM 2.5 mg/dL (1.8-2.4); PHOSPHORUS 3.7 mg/dL (2.5-4.9); POTASSIUM 4.6 mmol/L (3.5-5.1)
[2023-06-14 06:47] LABS: CREATININE 7.8 mg/dL (0.6-1.3)
[2023-06-14] MEDS: SEVELAMER CARBONATE 800 MG TABLET PO SCH ×3 (07:38→17:30)
[2023-06-14] MEDS: PROSOURCE / PROSTAT (PYXIS) 30 ML UDC PO SCH ×3 (07:38→16:31)
[2023-06-14] MEDS: THERAHONEY GEL 1.5 OZ TUBE TP SCH (08:42)
[2023-06-14] MEDS: CLOTRIMAZOLE 1% 15 GM TUBE TP SCH ×2 (08:42→16:32)
[2023-06-14] MEDS: PROSOURCE / PROSTAT (PYXIS) 30 ML UDC GT SCH (08:42)
[2023-06-14] MEDS: DOCUSATE SODIUM LIQ 100 MG/10 ML UDC PO SCH ×2 (08:43→16:30)
[2023-06-14] MEDS: POLYETHYLENE GLYCOL 3350 17 GM POWD.PACK PO SCH ×2 (08:43→16:30)
[2023-06-14] MEDS: SENNOSIDES 8.6 MG TABLET PO SCH ×2 (08:44→16:30)
[2023-06-14] MEDS: cetrizine 10 MG TABLET PO SCH (08:44)
[2023-06-14] MEDS: GABAPENTIN 100 MG CAPSULE PO SCH ×2 (08:44→16:30)
[2023-06-14] MEDS: ASPIRIN 325 MG TABLET PO SCH (08:44)
[2023-06-14] MEDS: FLUOXETINE HCL 20 MG CAPSULE PO SCH (08:44)
[2023-06-14] MEDS: VIT B CMPLX 3/FA/VIT C/BIOTIN 1 TAB TABLET PO SCH (08:44)
[2023-06-14] MEDS: AMLODIPINE BESYLATE 2.5 MG TABLET PO SCH (08:45)
[2023-06-14] MEDS: ASCORBIC ACID 500 MG TABLET PO SCH (08:45)
[2023-06-14] MEDS: busPIRone 5 MG TABLET PO SCH ×2 (08:45→16:30)
[2023-06-14] MEDS: HEPARIN SODIUM, PORCINE 5000 UNITS/1 ML VIAL SQ SCH ×2 (08:46→20:20)
[2023-06-14] MEDS: Z GUARD REMEDY 4 OZ OINT TP SCH (08:47)
[2023-06-14] MEDS: FLUTICASONE PROPIONATE 16 GM BOTTLE NS SCH ×2 (08:48→16:30)
[2023-06-14] MEDS: ARGININE/GLUTAMINE/CALCIUM BMB 1 EACH POWD.PACK PO SCH ×2 (08:49→16:31)
[2023-06-14] MEDS: ATORVASTATIN 40 MG TABLET PO SCH (22:07)
[2023-06-14] MEDS: TRAZODONE 50 MG TABLET PO SCH (22:07)
[2023-06-15] VITALS (11 sets, daily range): BP systolic 107–160; BP diastolic 61–87; TEMP 97.9–98.8; O2SAT 96–99
[2023-06-15 05:49] LABS: BASOPHILS # (AUTO) 0.1 K/uL (0.0-0.2); BASOPHILS % (AUTO) 0.7 % (0.0-2.0); EOSINOPHILS # (AUTO) 0.5 K/uL (0.0-0.7); EOSINOPHILS % (AUTO) 6.8 % (0.0-6.0); HEMATOCRIT 31 % (33-45); HEMOGLOBIN 9.7 g/dL (11.5-14.8); LYMPHOCYTES # (AUTO) 1.7 K/uL (0.8-4.8); LYMPHOCYTES % (AUTO) 21.6 % (20.0-44.0); MEAN CORPUSCULAR HEMOGLOBIN 28 PG (26.0-33.0); MEAN CORPUSCULAR HGB CONC 31 g/dl (31.0-36.0); MEAN CORPUSCULAR VOLUME 90 fL (82-100); MONOCYTES # (AUTO) 0.8 K/uL (0.1-1.30); MONOCYTES % (AUTO) 9.8 % (2.0-12.0); NEUTROPHILS # (AUTO) 4.8 K/uL (1.8-8.9); NEUTROPHILS % (AUTO) 61.1 % (43.0-81.0); PLATELET COUNT (AUTO) 320 K/uL (150-450); RED BLOOD CELL COUNT(AUTO) 3.46 MIL/uL (4.0-5.2); RED CELL DISTRIBUTION WIDTH 17.4 % (11.5-15.0); WHITE BLOOD COUNT (AUTO) 7.9 K/uL (4.3-11.0)
[2023-06-15 06:15] LABS: CALCIUM, SERUM 9.1 mg/dL (8.5-10.1); MAGNESIUM 2.3 mg/dL (1.8-2.4); PHOSPHORUS 3.8 mg/dL (2.5-4.9); POTASSIUM 4.5 mmol/L (3.5-5.1)
[2023-06-15] MEDS: SEVELAMER CARBONATE 800 MG TABLET PO SCH ×3 (08:43→17:22)
[2023-06-15] MEDS: PROSOURCE / PROSTAT (PYXIS) 30 ML UDC PO SCH ×3 (08:43→17:00)
[2023-06-15] MEDS: PROSOURCE / PROSTAT (PYXIS) 30 ML UDC GT SCH (08:44)
[2023-06-15] MEDS: GABAPENTIN 100 MG CAPSULE PO SCH ×2 (08:45→17:22)
[2023-06-15] MEDS: FLUOXETINE HCL 20 MG CAPSULE PO SCH (08:45)
[2023-06-15] MEDS: SENNOSIDES 8.6 MG TABLET PO SCH ×2 (08:45→17:22)
[2023-06-15] MEDS: busPIRone 5 MG TABLET PO SCH ×2 (08:45→17:22)
[2023-06-15] MEDS: ASCORBIC ACID 500 MG TABLET PO SCH (08:45)
[2023-06-15] MEDS: VIT B CMPLX 3/FA/VIT C/BIOTIN 1 TAB TABLET PO SCH (08:46)
[2023-06-15] MEDS: ARGININE/GLUTAMINE/CALCIUM BMB 1 EACH POWD.PACK PO SCH ×2 (08:46→17:23)
[2023-06-15] MEDS: cetrizine 10 MG TABLET PO SCH (08:46)
[2023-06-15] MEDS: AMLODIPINE BESYLATE 2.5 MG TABLET PO SCH (08:46)
[2023-06-15] MEDS: ASPIRIN 325 MG TABLET PO SCH (08:46)
[2023-06-15] MEDS: POLYETHYLENE GLYCOL 3350 17 GM POWD.PACK PO SCH ×2 (08:46→17:23)
[2023-06-15] MEDS: DOCUSATE SODIUM LIQ 100 MG/10 ML UDC PO SCH ×2 (08:46→17:24)
[2023-06-15] MEDS: Z GUARD REMEDY 4 OZ OINT TP SCH (08:47)
[2023-06-15] MEDS: THERAHONEY GEL 1.5 OZ TUBE TP SCH (08:47)
[2023-06-15] MEDS: CLOTRIMAZOLE 1% 15 GM TUBE TP SCH ×2 (08:56→17:23)
[2023-06-15] MEDS: FLUTICASONE PROPIONATE 16 GM BOTTLE NS SCH ×2 (08:56→17:22)
[2023-06-15] MEDS: HEPARIN SODIUM, PORCINE 5000 UNITS/1 ML VIAL SQ SCH ×2 (09:03→21:13)
[2023-06-15] MEDS: HYDROCODONE/APAP 10/325MG TABLET PO PRN ×2 (12:53→21:15)
[2023-06-15] MEDS: ATORVASTATIN 40 MG TABLET PO SCH (21:14)
[2023-06-15] MEDS: TRAZODONE 50 MG TABLET PO SCH (22:48)
[2023-06-16] VITALS (10 sets, daily range): BP systolic 105–143; BP diastolic 66–75; TEMP 97.3–99.1; O2SAT 96–100
[2023-06-16] MEDS: HYDROCODONE/APAP 10/325MG TABLET PO PRN ×2 (06:00→17:29)
[2023-06-16] MEDS: SEVELAMER CARBONATE 800 MG TABLET PO SCH ×3 (07:55→17:06)
[2023-06-16] MEDS: PROSOURCE / PROSTAT (PYXIS) 30 ML UDC PO SCH ×3 (07:55→16:23)
[2023-06-16] MEDS: CLOTRIMAZOLE 1% 15 GM TUBE TP SCH ×2 (08:05→16:25)
[2023-06-16] MEDS: FLUTICASONE PROPIONATE 16 GM BOTTLE NS SCH ×2 (08:05→16:24)
[2023-06-16] MEDS: THERAHONEY GEL 1.5 OZ TUBE TP SCH (08:06)
[2023-06-16] MEDS: GABAPENTIN 100 MG CAPSULE PO SCH ×2 (08:08→16:22)
[2023-06-16] MEDS: ASCORBIC ACID 500 MG TABLET PO SCH (08:08)
[2023-06-16] MEDS: VIT B CMPLX 3/FA/VIT C/BIOTIN 1 TAB TABLET PO SCH (08:08)
[2023-06-16] MEDS: POLYETHYLENE GLYCOL 3350 17 GM POWD.PACK PO SCH ×3 (08:08→16:32)
[2023-06-16] MEDS: busPIRone 5 MG TABLET PO SCH ×2 (08:08→16:22)
[2023-06-16] MEDS: DOCUSATE SODIUM LIQ 100 MG/10 ML UDC PO SCH ×3 (08:08→16:32)
[2023-06-16] MEDS: ASPIRIN 325 MG TABLET PO SCH (08:09)
[2023-06-16] MEDS: cetrizine 10 MG TABLET PO SCH (08:09)
[2023-06-16] MEDS: SENNOSIDES 8.6 MG TABLET PO SCH ×2 (08:09→16:22)
[2023-06-16] MEDS: FLUOXETINE HCL 20 MG CAPSULE PO SCH (08:09)
[2023-06-16] MEDS: HEPARIN SODIUM, PORCINE 5000 UNITS/1 ML VIAL SQ SCH ×2 (08:11→20:58)
[2023-06-16] MEDS: PROSOURCE / PROSTAT (PYXIS) 30 ML UDC GT SCH (08:15)
[2023-06-16] MEDS: Z GUARD REMEDY 4 OZ OINT TP SCH (08:15)
[2023-06-16] MEDS: ARGININE/GLUTAMINE/CALCIUM BMB 1 EACH POWD.PACK PO SCH ×2 (08:15→16:23)
[2023-06-16] MEDS: AMLODIPINE BESYLATE 2.5 MG TABLET PO SCH (08:16)
[2023-06-16] MEDS: ACETAMINOPHEN 325 MG TABLET PO PRN (21:06)
[2023-06-16] MEDS: TRAZODONE 50 MG TABLET PO SCH (21:07)
[2023-06-16] MEDS: ATORVASTATIN 40 MG TABLET PO SCH (21:07)
[2023-06-17] VITALS (12 sets, daily range): BP systolic 104–154; BP diastolic 56–86; TEMP 98.2–99.3; O2SAT 95–99
[2023-06-17] MEDS: PROSOURCE / PROSTAT (PYXIS) 30 ML UDC PO SCH ×3 (08:58→17:00)
[2023-06-17] MEDS: ARGININE/GLUTAMINE/CALCIUM BMB 1 EACH POWD.PACK PO SCH ×2 (08:58→17:13)
[2023-06-17] MEDS: FLUOXETINE HCL 20 MG CAPSULE PO SCH (08:59)
[2023-06-17] MEDS: SEVELAMER CARBONATE 800 MG TABLET PO SCH ×3 (08:59→17:12)
[2023-06-17] MEDS: POLYETHYLENE GLYCOL 3350 17 GM POWD.PACK PO SCH ×2 (08:59→17:00)
[2023-06-17] MEDS: DOCUSATE SODIUM LIQ 100 MG/10 ML UDC PO SCH ×2 (08:59→17:13)
[2023-06-17] MEDS: ASPIRIN 325 MG TABLET PO SCH (09:00)
[2023-06-17] MEDS: AMLODIPINE BESYLATE 2.5 MG TABLET PO SCH (09:00)
[2023-06-17] MEDS: busPIRone 5 MG TABLET PO SCH ×2 (09:00→17:13)
[2023-06-17] MEDS: ASCORBIC ACID 500 MG TABLET PO SCH (09:00)
[2023-06-17] MEDS: VIT B CMPLX 3/FA/VIT C/BIOTIN 1 TAB TABLET PO SCH (09:01)
[2023-06-17] MEDS: cetrizine 10 MG TABLET PO SCH (09:01)
[2023-06-17] MEDS: SENNOSIDES 8.6 MG TABLET PO SCH ×2 (09:01→17:13)
[2023-06-17] MEDS: GABAPENTIN 100 MG CAPSULE PO SCH ×2 (09:01→17:13)
[2023-06-17] MEDS: PROSOURCE / PROSTAT (PYXIS) 30 ML UDC GT SCH (09:05)
[2023-06-17] MEDS: HEPARIN SODIUM, PORCINE 5000 UNITS/1 ML VIAL SQ SCH ×2 (09:09→21:32)
[2023-06-17] MEDS: CLOTRIMAZOLE 1% 15 GM TUBE TP SCH ×2 (09:33→17:46)
[2023-06-17] MEDS: THERAHONEY GEL 1.5 OZ TUBE TP SCH (09:33)
[2023-06-17] MEDS: FLUTICASONE PROPIONATE 16 GM BOTTLE NS SCH ×2 (09:34→17:46)
[2023-06-17] MEDS: Z GUARD REMEDY 4 OZ OINT TP PRN (09:34)
[2023-06-17] MEDS: Z GUARD REMEDY 4 OZ OINT TP SCH (09:35)
[2023-06-17] MEDS: HYDROCODONE/APAP 10/325MG TABLET PO PRN (12:13)
[2023-06-17] MEDS: BUPRENORPHINE SL SCH (19:52)
[2023-06-17] MEDS: NALOXONE SL SCH (19:52)
[2023-06-17] MEDS ORDERED: KEY,NONCONTROL,TO KEEP IN PYXI 1 EA MC ONE ×2 (20:02→20:07)
[2023-06-17] MEDS: ATORVASTATIN 40 MG TABLET PO SCH (21:30)
[2023-06-17] MEDS: TRAZODONE 50 MG TABLET PO SCH (21:31)
[2023-06-18] VITALS (12 sets, daily range): BP systolic 93–136; BP diastolic 56–87; TEMP 97.5–98.4; O2SAT 93–100
[2023-06-18] MEDS: SEVELAMER CARBONATE 800 MG TABLET PO SCH ×3 (08:48→18:00)
[2023-06-18] MEDS: PROSOURCE / PROSTAT (PYXIS) 30 ML UDC PO SCH ×3 (08:48→18:05)
[2023-06-18] MEDS: POLYETHYLENE GLYCOL 3350 17 GM POWD.PACK PO SCH ×2 (08:49→18:01)
[2023-06-18] MEDS: DOCUSATE SODIUM LIQ 100 MG/10 ML UDC PO SCH ×3 (08:49→17:00)
[2023-06-18] MEDS: AMLODIPINE BESYLATE 2.5 MG TABLET PO SCH (08:49)
[2023-06-18] MEDS: ASCORBIC ACID 500 MG TABLET PO SCH (08:50)
[2023-06-18] MEDS: busPIRone 5 MG TABLET PO SCH ×2 (08:50→18:00)
[2023-06-18] MEDS: VIT B CMPLX 3/FA/VIT C/BIOTIN 1 TAB TABLET PO SCH (08:51)
[2023-06-18] MEDS: ASPIRIN 325 MG TABLET PO SCH (08:51)
[2023-06-18] MEDS: FLUOXETINE HCL 20 MG CAPSULE PO SCH (08:51)
[2023-06-18] MEDS: SENNOSIDES 8.6 MG TABLET PO SCH ×2 (08:51→18:00)
[2023-06-18] MEDS: cetrizine 10 MG TABLET PO SCH (08:51)
[2023-06-18] MEDS: GABAPENTIN 100 MG CAPSULE PO SCH ×2 (08:52→18:00)
[2023-06-18] MEDS: PROSOURCE / PROSTAT (PYXIS) 30 ML UDC GT SCH (08:53)
[2023-06-18] MEDS: ARGININE/GLUTAMINE/CALCIUM BMB 1 EACH POWD.PACK PO SCH ×2 (08:56→18:05)
[2023-06-18] MEDS: HEPARIN SODIUM, PORCINE 5000 UNITS/1 ML VIAL SQ SCH ×2 (08:57→21:36)
[2023-06-18] MEDS: THERAHONEY GEL 1.5 OZ TUBE TP SCH (09:22)
[2023-06-18] MEDS: CLOTRIMAZOLE 1% 15 GM TUBE TP SCH ×2 (09:22→18:07)
[2023-06-18] MEDS: Z GUARD REMEDY 4 OZ OINT TP SCH (09:23)
[2023-06-18] MEDS: FLUTICASONE PROPIONATE 16 GM BOTTLE NS SCH ×2 (09:23→18:01)
[2023-06-18] MEDS: NALOXONE SL SCH ×3 (09:53→23:01)
[2023-06-18] MEDS: BUPRENORPHINE SL SCH ×3 (09:53→23:01)
[2023-06-18] MEDS: TRAZODONE 50 MG TABLET PO SCH (21:35)
[2023-06-18] MEDS: ATORVASTATIN 40 MG TABLET PO SCH (21:35)
[2023-06-18] MEDS ORDERED: KEY,NONCONTROL,TO KEEP IN PYXI 1 EA MC ONE (22:54)
[2023-06-19] VITALS (11 sets, daily range): BP systolic 100–144; BP diastolic 52–83; TEMP 98.2–98.6; O2SAT 95–99
[2023-06-19 05:47] LABS: BASOPHILS # (AUTO) 0.1 K/uL (0.0-0.2); BASOPHILS % (AUTO) 1.5 % (0.0-2.0); EOSINOPHILS # (AUTO) 0.6 K/uL (0.0-0.7); EOSINOPHILS % (AUTO) 7.4 % (0.0-6.0); HEMATOCRIT 33 % (33-45); HEMOGLOBIN 10.1 g/dL (11.5-14.8); LYMPHOCYTES # (AUTO) 1.3 K/uL (0.8-4.8); LYMPHOCYTES % (AUTO) 16.9 % (20.0-44.0); MEAN CORPUSCULAR HEMOGLOBIN 28 PG (26.0-33.0); MEAN CORPUSCULAR HGB CONC 31 g/dl (31.0-36.0); MEAN CORPUSCULAR VOLUME 90 fL (82-100); MONOCYTES # (AUTO) 0.5 K/uL (0.1-1.30); MONOCYTES % (AUTO) 6.9 % (2.0-12.0); NEUTROPHILS # (AUTO) 5.1 K/uL (1.8-8.9); NEUTROPHILS % (AUTO) 67.3 % (43.0-81.0); PLATELET COUNT (AUTO) 218 K/uL (150-450); RED BLOOD CELL COUNT(AUTO) 3.64 MIL/uL (4.0-5.2); RED CELL DISTRIBUTION WIDTH 18.4 % (11.5-15.0); WHITE BLOOD COUNT (AUTO) 7.6 K/uL (4.3-11.0)
[2023-06-19 06:17] LABS: BILIRUBIN,TOTAL 0.2 mg/dL (0.2-1.0); CALCIUM, SERUM 9.1 mg/dL (8.5-10.1); CREATININE 5.7 mg/dL (0.6-1.3); MAGNESIUM 2.2 mg/dL (1.8-2.4); PHOSPHORUS 3.9 mg/dL (2.5-4.9); TOTAL PROTEIN, SERUM 7.1 g/dL (6.4-8.2)
[2023-06-19] MEDS: SEVELAMER CARBONATE 800 MG TABLET PO SCH ×3 (08:00→18:14)
[2023-06-19] MEDS: ASCORBIC ACID 500 MG TABLET PO SCH (09:11)
[2023-06-19] MEDS: VIT B CMPLX 3/FA/VIT C/BIOTIN 1 TAB TABLET PO SCH (09:11)
[2023-06-19] MEDS: DOCUSATE SODIUM LIQ 100 MG/10 ML UDC PO SCH ×2 (09:11→18:14)
[2023-06-19] MEDS: ASPIRIN 325 MG TABLET PO SCH (09:11)
[2023-06-19] MEDS: cetrizine 10 MG TABLET PO SCH (09:11)
[2023-06-19] MEDS: GABAPENTIN 100 MG CAPSULE PO SCH ×2 (09:12→18:15)
[2023-06-19] MEDS: FLUOXETINE HCL 20 MG CAPSULE PO SCH (09:12)
[2023-06-19] MEDS: busPIRone 5 MG TABLET PO SCH ×2 (09:12→18:15)
[2023-06-19] MEDS: HEPARIN SODIUM, PORCINE 5000 UNITS/1 ML VIAL SQ SCH (09:14)
[2023-06-19] MEDS: AMLODIPINE BESYLATE 2.5 MG TABLET PO SCH (09:18)
[2023-06-19] MEDS: PROSOURCE / PROSTAT (PYXIS) 30 ML UDC PO SCH ×3 (09:31→18:14)
[2023-06-19] MEDS: POLYETHYLENE GLYCOL 3350 17 GM POWD.PACK PO SCH ×2 (09:31→18:14)
[2023-06-19] MEDS: ARGININE/GLUTAMINE/CALCIUM BMB 1 EACH POWD.PACK PO SCH ×2 (09:32→18:14)
[2023-06-19] MEDS: SENNOSIDES 8.6 MG TABLET PO SCH ×2 (09:33→18:14)
[2023-06-19] MEDS: FLUTICASONE PROPIONATE 16 GM BOTTLE NS SCH ×2 (12:32→18:25)
[2023-06-19] MEDS: CLOTRIMAZOLE 1% 15 GM TUBE TP SCH ×2 (16:03→18:25)
[2023-06-19] MEDS: Z GUARD REMEDY 4 OZ OINT TP SCH (16:04)
[2023-06-19] MEDS: THERAHONEY GEL 1.5 OZ TUBE TP SCH (16:05)
[2023-06-19] MEDS ORDERED: KEY,NONCONTROL,TO KEEP IN PYXI 1 EA MC ONE (18:02)
[2023-06-19] MEDS: NALOXONE SL SCH (18:16)
[2023-06-19] MEDS: BUPRENORPHINE SL SCH (18:16)
[2023-06-19] MEDS: ATORVASTATIN 40 MG TABLET PO SCH (21:43)
[2023-06-19] MEDS: TRAZODONE 50 MG TABLET PO SCH (21:44)
[2023-06-20] VITALS (9 sets, daily range): BP systolic 97–155; BP diastolic 60–88; TEMP 98.2; O2SAT 95–99
[2023-06-20 05:38] LABS: BASOPHILS # (AUTO) 0.1 K/uL (0.0-0.2); BASOPHILS % (AUTO) 1.2 % (0.0-2.0); EOSINOPHILS # (AUTO) 0.5 K/uL (0.0-0.7); EOSINOPHILS % (AUTO) 6.6 % (0.0-6.0); HEMATOCRIT 33 % (33-45); LYMPHOCYTES # (AUTO) 1.4 K/uL (0.8-4.8); LYMPHOCYTES % (AUTO) 18.6 % (20.0-44.0); MEAN CORPUSCULAR HEMOGLOBIN 28 PG (26.0-33.0); MEAN CORPUSCULAR HGB CONC 30 g/dl (31.0-36.0); MEAN CORPUSCULAR VOLUME 92 fL (82-100); MONOCYTES # (AUTO) 0.6 K/uL (0.1-1.30); MONOCYTES % (AUTO) 7.4 % (2.0-12.0); NEUTROPHILS # (AUTO) 5.1 K/uL (1.8-8.9); NEUTROPHILS % (AUTO) 66.2 % (43.0-81.0); PLATELET COUNT (AUTO) 188 K/uL (150-450); RED CELL DISTRIBUTION WIDTH 18.2 % (11.5-15.0); WHITE BLOOD COUNT (AUTO) 7.8 K/uL (4.3-11.0)
[2023-06-20 05:59] LABS: ALBUMIN 2.8 g/dL (3.4-5.0); BILIRUBIN,TOTAL 0.3 mg/dL (0.2-1.0); CALCIUM, SERUM 9.1 mg/dL (8.5-10.1); CREATININE 6.9 mg/dL (0.6-1.3); MAGNESIUM 2.5 mg/dL (1.8-2.4); PHOSPHORUS 4.2 mg/dL (2.5-4.9); POTASSIUM 5.9 mmol/L (3.5-5.1); TOTAL PROTEIN, SERUM 6.8 g/dL (6.4-8.2)
[2023-06-20] MEDS: FLUTICASONE PROPIONATE 16 GM BOTTLE NS SCH ×2 (09:00→18:46)
[2023-06-20] MEDS: AMLODIPINE BESYLATE 2.5 MG TABLET PO SCH (09:00)
[2023-06-20] MEDS: CLOTRIMAZOLE 1% 15 GM TUBE TP SCH ×2 (09:00→18:46)
[2023-06-20] MEDS ORDERED: SODIUM POLYSTYRENE SULF. PWD 15 GM UDC PO ONE (09:30)
[2023-06-20] MEDS: DOCUSATE SODIUM LIQ 100 MG/10 ML UDC PO SCH ×2 (10:13→18:16)
[2023-06-20] MEDS: FLUOXETINE HCL 20 MG CAPSULE PO SCH (10:14)
[2023-06-20] MEDS: ASPIRIN 325 MG TABLET PO SCH (10:14)
[2023-06-20] MEDS: GABAPENTIN 100 MG CAPSULE PO SCH ×2 (10:14→18:15)
[2023-06-20] MEDS: SEVELAMER CARBONATE 800 MG TABLET PO SCH ×3 (10:14→18:15)
[2023-06-20] MEDS: cetrizine 10 MG TABLET PO SCH (10:15)
[2023-06-20] MEDS: busPIRone 5 MG TABLET PO SCH ×2 (10:15→18:15)
[2023-06-20] MEDS: ASCORBIC ACID 500 MG TABLET PO SCH (10:15)
[2023-06-20] MEDS: VIT B CMPLX 3/FA/VIT C/BIOTIN 1 TAB TABLET PO SCH (10:15)
[2023-06-20] MEDS: SENNOSIDES 8.6 MG TABLET PO SCH ×2 (10:15→18:15)
[2023-06-20] MEDS: POLYETHYLENE GLYCOL 3350 17 GM POWD.PACK PO SCH ×2 (10:15→18:16)
[2023-06-20] MEDS: PROSOURCE / PROSTAT (PYXIS) 30 ML UDC PO SCH ×3 (10:18→18:16)
[2023-06-20] MEDS: ARGININE/GLUTAMINE/CALCIUM BMB 1 EACH POWD.PACK PO SCH ×2 (10:18→18:16)
[2023-06-20] MEDS: NALOXONE SL SCH ×2 (10:57→18:16)
[2023-06-20] MEDS: BUPRENORPHINE SL SCH ×2 (10:57→18:16)
[2023-06-20] MEDS: Z GUARD REMEDY 4 OZ OINT TP SCH (15:33)
[2023-06-20] MEDS: THERAHONEY GEL 1.5 OZ TUBE TP SCH (15:34)
[2023-06-20] MEDS: TRAZODONE 50 MG TABLET PO SCH (21:10)
[2023-06-20] MEDS: ATORVASTATIN 40 MG TABLET PO SCH (21:11)
[2023-06-21] VITALS (12 sets, daily range): BP systolic 98–124; BP diastolic 52–85; TEMP 97.6–99.7; O2SAT 95–99
[2023-06-21] MEDS: Z GUARD REMEDY 4 OZ OINT TP SCH (09:00)
[2023-06-21] MEDS: FLUTICASONE PROPIONATE 16 GM BOTTLE NS SCH ×2 (09:00→17:42)
[2023-06-21] MEDS: AMLODIPINE BESYLATE 2.5 MG TABLET PO SCH (09:00)
[2023-06-21] MEDS: POLYETHYLENE GLYCOL 3350 17 GM POWD.PACK PO SCH ×2 (09:27→17:42)
[2023-06-21] MEDS: PROSOURCE / PROSTAT (PYXIS) 30 ML UDC PO SCH ×3 (09:27→17:48)
[2023-06-21] MEDS: ASPIRIN 325 MG TABLET PO SCH (09:28)
[2023-06-21] MEDS: SEVELAMER CARBONATE 800 MG TABLET PO SCH ×3 (09:28→17:48)
[2023-06-21] MEDS: DOCUSATE SODIUM LIQ 100 MG/10 ML UDC PO SCH ×2 (09:28→17:42)
[2023-06-21] MEDS: ASCORBIC ACID 500 MG TABLET PO SCH (09:28)
[2023-06-21] MEDS: SENNOSIDES 8.6 MG TABLET PO SCH ×2 (09:28→17:43)
[2023-06-21] MEDS: FLUOXETINE HCL 20 MG CAPSULE PO SCH (09:28)
[2023-06-21] MEDS: ARGININE/GLUTAMINE/CALCIUM BMB 1 EACH POWD.PACK PO SCH ×2 (09:29→17:43)
[2023-06-21] MEDS: GABAPENTIN 100 MG CAPSULE PO SCH ×2 (09:29→17:43)
[2023-06-21] MEDS: cetrizine 10 MG TABLET PO SCH (09:29)
[2023-06-21] MEDS: VIT B CMPLX 3/FA/VIT C/BIOTIN 1 TAB TABLET PO SCH (09:29)
[2023-06-21] MEDS: busPIRone 5 MG TABLET PO SCH ×2 (09:29→17:43)
[2023-06-21] MEDS: CLOTRIMAZOLE 1% 15 GM TUBE TP SCH ×2 (11:49→17:42)
[2023-06-21] MEDS: THERAHONEY GEL 1.5 OZ TUBE TP SCH (11:49)
[2023-06-21] MEDS: NALOXONE SL SCH ×2 (13:08→17:43)
[2023-06-21] MEDS: BUPRENORPHINE SL SCH ×2 (13:08→17:43)
[2023-06-21] MEDS: ATORVASTATIN 40 MG TABLET PO SCH (22:34)
[2023-06-21] MEDS: TRAZODONE 50 MG TABLET PO SCH (22:35)
[2023-06-22] VITALS (10 sets, daily range): BP systolic 101–118; BP diastolic 53–68; TEMP 98.2–99.7; O2SAT 95–100
[2023-06-22] MEDS: AMLODIPINE BESYLATE 2.5 MG TABLET PO SCH (08:02)
[2023-06-22 08:56] LABS: BASOPHILS % (AUTO) 0.7 % (0.0-2.0); EOSINOPHILS # (AUTO) 0.4 K/uL (0.0-0.7); EOSINOPHILS % (AUTO) 6.2 % (0.0-6.0); HEMATOCRIT 35 % (33-45); LYMPHOCYTES # (AUTO) 1.4 K/uL (0.8-4.8); LYMPHOCYTES % (AUTO) 20.7 % (20.0-44.0); MEAN CORPUSCULAR HEMOGLOBIN 28 PG (26.0-33.0); MEAN CORPUSCULAR HGB CONC 31 g/dl (31.0-36.0); MEAN CORPUSCULAR VOLUME 91 fL (82-100); MONOCYTES # (AUTO) 0.4 K/uL (0.1-1.30); MONOCYTES % (AUTO) 5.5 % (2.0-12.0); NEUTROPHILS # (AUTO) 4.6 K/uL (1.8-8.9); NEUTROPHILS % (AUTO) 66.9 % (43.0-81.0); PLATELET COUNT (AUTO) 182 K/uL (150-450); RED BLOOD CELL COUNT(AUTO) 3.89 MIL/uL (4.0-5.2); RED CELL DISTRIBUTION WIDTH 17.9 % (11.5-15.0); WHITE BLOOD COUNT (AUTO) 6.8 K/uL (4.3-11.0)
[2023-06-22 09:07] LABS: CALCIUM, SERUM 9.2 mg/dL (8.5-10.1); CREATININE 5.3 mg/dL (0.6-1.3); POTASSIUM 4.2 mmol/L (3.5-5.1)
[2023-06-22] MEDS: VIT B CMPLX 3/FA/VIT C/BIOTIN 1 TAB TABLET PO SCH (09:14)
[2023-06-22] MEDS: DOCUSATE SODIUM LIQ 100 MG/10 ML UDC PO SCH ×2 (09:14→16:12)
[2023-06-22] MEDS: SEVELAMER CARBONATE 800 MG TABLET PO SCH ×3 (09:14→17:53)
[2023-06-22] MEDS: ASPIRIN 325 MG TABLET PO SCH (09:14)
[2023-06-22] MEDS: GABAPENTIN 100 MG CAPSULE PO SCH ×2 (09:14→16:12)
[2023-06-22] MEDS: busPIRone 5 MG TABLET PO SCH ×2 (09:14→16:12)
[2023-06-22] MEDS: POLYETHYLENE GLYCOL 3350 17 GM POWD.PACK PO SCH ×2 (09:14→16:12)
[2023-06-22] MEDS: cetrizine 10 MG TABLET PO SCH (09:15)
[2023-06-22] MEDS: ASCORBIC ACID 500 MG TABLET PO SCH (09:15)
[2023-06-22] MEDS: FLUOXETINE HCL 20 MG CAPSULE PO SCH (09:15)
[2023-06-22] MEDS: SENNOSIDES 8.6 MG TABLET PO SCH ×2 (09:15→16:12)
[2023-06-22] MEDS: BUPRENORPHINE SL SCH ×2 (09:16→18:28)
[2023-06-22] MEDS: NALOXONE SL SCH ×2 (09:16→18:28)
[2023-06-22] MEDS: CLOTRIMAZOLE 1% 15 GM TUBE TP SCH ×2 (09:17→17:00)
[2023-06-22] MEDS: THERAHONEY GEL 1.5 OZ TUBE TP SCH (09:17)
[2023-06-22] MEDS: Z GUARD REMEDY 4 OZ OINT TP SCH (09:17)
[2023-06-22] MEDS: ARGININE/GLUTAMINE/CALCIUM BMB 1 EACH POWD.PACK PO SCH ×2 (09:38→16:12)
[2023-06-22] MEDS: PROSOURCE / PROSTAT (PYXIS) 30 ML UDC PO SCH ×3 (09:38→16:12)
[2023-06-22] MEDS: FLUTICASONE PROPIONATE 16 GM BOTTLE NS SCH ×2 (09:38→17:00)
[2023-06-22] MEDS: MAGNESIUM HYDROXIDE 30 ML UDC PO PRN (16:12)
[2023-06-22] MEDS: ACETAMINOPHEN 325 MG TABLET PO PRN (18:30)
[2023-06-22] MEDS: TRAZODONE 50 MG TABLET PO SCH (21:17)
[2023-06-22] MEDS: ATORVASTATIN 40 MG TABLET PO SCH (21:17)
[2023-06-23] VITALS (9 sets, daily range): BP systolic 99–109; BP diastolic 56–66; TEMP 97.5–98.8; O2SAT 96–99
[2023-06-23] MEDS: FLUOXETINE HCL 20 MG CAPSULE PO SCH (09:19)
[2023-06-23] MEDS: PROSOURCE / PROSTAT (PYXIS) 30 ML UDC PO SCH ×3 (09:19→16:15)
[2023-06-23] MEDS: GABAPENTIN 100 MG CAPSULE PO SCH ×2 (09:20→16:14)
[2023-06-23] MEDS: DOCUSATE SODIUM LIQ 100 MG/10 ML UDC PO SCH ×2 (09:20→16:14)
[2023-06-23] MEDS: ASPIRIN 325 MG TABLET PO SCH (09:20)
[2023-06-23] MEDS: busPIRone 5 MG TABLET PO SCH ×2 (09:20→16:14)
[2023-06-23] MEDS: SENNOSIDES 8.6 MG TABLET PO SCH ×2 (09:20→16:14)
[2023-06-23] MEDS: ASCORBIC ACID 500 MG TABLET PO SCH (09:20)
[2023-06-23] MEDS: cetrizine 10 MG TABLET PO SCH (09:20)
[2023-06-23] MEDS: POLYETHYLENE GLYCOL 3350 17 GM POWD.PACK PO SCH ×2 (09:20→16:14)
[2023-06-23] MEDS: VIT B CMPLX 3/FA/VIT C/BIOTIN 1 TAB TABLET PO SCH (09:20)
[2023-06-23] MEDS: ARGININE/GLUTAMINE/CALCIUM BMB 1 EACH POWD.PACK PO SCH ×2 (09:21→16:24)
[2023-06-23] MEDS: SEVELAMER CARBONATE 800 MG TABLET PO SCH ×3 (09:26→17:20)
[2023-06-23] MEDS: THERAHONEY GEL 1.5 OZ TUBE TP SCH (09:29)
[2023-06-23] MEDS: FLUTICASONE PROPIONATE 16 GM BOTTLE NS SCH ×2 (09:29→16:14)
[2023-06-23] MEDS: Z GUARD REMEDY 4 OZ OINT TP SCH (09:29)
[2023-06-23] MEDS: CLOTRIMAZOLE 1% 15 GM TUBE TP SCH ×2 (09:29→16:19)
[2023-06-23] MEDS ORDERED: KEY,NONCONTROL,TO KEEP IN PYXI 1 EA MC ONE (10:01)
[2023-06-23] MEDS: BUPRENORPHINE SL SCH ×2 (10:11→16:19)
[2023-06-23] MEDS: NALOXONE SL SCH ×2 (10:11→16:19)
[2023-06-23] MEDS: ACETAMINOPHEN 325 MG TABLET PO PRN (15:39)
[2023-06-23] MEDS: MAGNESIUM HYDROXIDE 30 ML UDC PO PRN (16:14)
[2023-06-23] MEDS: TRAZODONE 50 MG TABLET PO SCH (21:06)
[2023-06-23] MEDS: ATORVASTATIN 40 MG TABLET PO SCH (21:07)
[2023-06-24] VITALS (11 sets, daily range): BP systolic 91–126; BP diastolic 50–79; TEMP 98.1–99; O2SAT 95–98
[2023-06-24] MEDS: PROSOURCE / PROSTAT (PYXIS) 30 ML UDC PO SCH ×3 (08:35→17:46)
[2023-06-24] MEDS: ASPIRIN 325 MG TABLET PO SCH (08:36)
[2023-06-24] MEDS: SEVELAMER CARBONATE 800 MG TABLET PO SCH ×3 (08:36→17:26)
[2023-06-24] MEDS: VIT B CMPLX 3/FA/VIT C/BIOTIN 1 TAB TABLET PO SCH (08:36)
[2023-06-24] MEDS: SENNOSIDES 8.6 MG TABLET PO SCH ×2 (08:37→17:26)
[2023-06-24] MEDS: ASCORBIC ACID 500 MG TABLET PO SCH (08:37)
[2023-06-24] MEDS: GABAPENTIN 100 MG CAPSULE PO SCH ×2 (08:37→17:25)
[2023-06-24] MEDS: DOCUSATE SODIUM LIQ 100 MG/10 ML UDC PO SCH ×2 (08:37→17:26)
[2023-06-24] MEDS: busPIRone 5 MG TABLET PO SCH ×2 (08:37→17:26)
[2023-06-24] MEDS: FLUOXETINE HCL 20 MG CAPSULE PO SCH (08:38)
[2023-06-24] MEDS: POLYETHYLENE GLYCOL 3350 17 GM POWD.PACK PO SCH ×2 (08:38→17:26)
[2023-06-24] MEDS: cetrizine 10 MG TABLET PO SCH (08:38)
[2023-06-24] MEDS: ARGININE/GLUTAMINE/CALCIUM BMB 1 EACH POWD.PACK PO SCH ×2 (08:40→17:46)
[2023-06-24] MEDS: NALOXONE SL SCH ×2 (09:10→17:30)
[2023-06-24] MEDS: BUPRENORPHINE SL SCH ×2 (09:10→17:30)
[2023-06-24] MEDS: THERAHONEY GEL 1.5 OZ TUBE TP SCH (09:21)
[2023-06-24] MEDS: CLOTRIMAZOLE 1% 15 GM TUBE TP SCH ×2 (09:22→17:46)
[2023-06-24] MEDS: FLUTICASONE PROPIONATE 16 GM BOTTLE NS SCH ×2 (09:23→17:46)
[2023-06-24] MEDS: Z GUARD REMEDY 4 OZ OINT TP SCH (09:40)
[2023-06-24] MEDS: ACETAMINOPHEN 325 MG TABLET PO PRN (15:03)
[2023-06-24] MEDS: MAGNESIUM HYDROXIDE 30 ML UDC PO PRN (15:03)
[2023-06-24] MEDS ORDERED: KEY,NONCONTROL,TO KEEP IN PYXI 1 EA MC ONE (17:33)
[2023-06-24] MEDS: TRAZODONE 50 MG TABLET PO SCH (21:04)
[2023-06-24] MEDS: ATORVASTATIN 40 MG TABLET PO SCH (21:04)
[2023-06-25] VITALS (9 sets, daily range): BP systolic 102–124; BP diastolic 54–66; TEMP 97.7–99.3; O2SAT 93–99
[2023-06-25] MEDS: PROSOURCE / PROSTAT (PYXIS) 30 ML UDC PO SCH ×3 (09:31→17:06)
[2023-06-25] MEDS: FLUTICASONE PROPIONATE 16 GM BOTTLE NS SCH ×2 (09:32→17:05)
[2023-06-25] MEDS: SEVELAMER CARBONATE 800 MG TABLET PO SCH ×3 (09:32→18:51)
[2023-06-25] MEDS: busPIRone 5 MG TABLET PO SCH ×2 (09:33→17:06)
[2023-06-25] MEDS: ASPIRIN 325 MG TABLET PO SCH (09:33)
[2023-06-25] MEDS: ARGININE/GLUTAMINE/CALCIUM BMB 1 EACH POWD.PACK PO SCH ×2 (09:34→17:06)
[2023-06-25] MEDS: GABAPENTIN 100 MG CAPSULE PO SCH ×2 (09:34→17:06)
[2023-06-25] MEDS: VIT B CMPLX 3/FA/VIT C/BIOTIN 1 TAB TABLET PO SCH (09:34)
[2023-06-25] MEDS: DOCUSATE SODIUM LIQ 100 MG/10 ML UDC PO SCH ×2 (09:34→17:06)
[2023-06-25] MEDS: POLYETHYLENE GLYCOL 3350 17 GM POWD.PACK PO SCH ×2 (09:34→17:06)
[2023-06-25] MEDS: ASCORBIC ACID 500 MG TABLET PO SCH (09:35)
[2023-06-25] MEDS: SENNOSIDES 8.6 MG TABLET PO SCH ×2 (09:35→17:06)
[2023-06-25] MEDS: FLUOXETINE HCL 20 MG CAPSULE PO SCH (09:35)
[2023-06-25] MEDS: cetrizine 10 MG TABLET PO SCH (09:36)
[2023-06-25] MEDS: CLOTRIMAZOLE 1% 15 GM TUBE TP SCH ×2 (09:41→17:08)
[2023-06-25] MEDS: THERAHONEY GEL 1.5 OZ TUBE TP SCH (09:41)
[2023-06-25] MEDS ORDERED: KEY,NONCONTROL,TO KEEP IN PYXI 1 EA MC ONE ×2 (10:16→16:57)
[2023-06-25] MEDS: NALOXONE SL SCH ×2 (10:26→17:08)
[2023-06-25] MEDS: BUPRENORPHINE SL SCH ×2 (10:26→17:08)
[2023-06-25] MEDS: hydrOXYzine 10 MG TABLET PO PRN (10:27)
[2023-06-25] MEDS: Z GUARD REMEDY 4 OZ OINT TP SCH (10:28)
[2023-06-25] MEDS: ONDANSETRON HCL/PF 4 MG/2 ML VIAL IVP PRN (17:29)
[2023-06-25] MEDS: ATORVASTATIN 40 MG TABLET PO SCH (21:22)
[2023-06-25] MEDS: TRAZODONE 50 MG TABLET PO SCH (21:22)
[2023-06-25] MEDS: MAGNESIUM HYDROXIDE 30 ML UDC PO PRN (21:41)
[2023-06-26] VITALS (8 sets, daily range): BP systolic 80–125; BP diastolic 50–60; TEMP 97.6–98.6; O2SAT 94–98
[2023-06-26] MEDS: PROSOURCE / PROSTAT (PYXIS) 30 ML UDC PO SCH ×3 (09:27→17:26)
[2023-06-26] MEDS: CLOTRIMAZOLE 1% 15 GM TUBE TP SCH ×2 (09:28→17:27)
[2023-06-26] MEDS: FLUTICASONE PROPIONATE 16 GM BOTTLE NS SCH ×2 (09:28→17:24)
[2023-06-26] MEDS: THERAHONEY GEL 1.5 OZ TUBE TP SCH (09:28)
[2023-06-26] MEDS: Z GUARD REMEDY 4 OZ OINT TP PRN (09:29)
[2023-06-26] MEDS: ARGININE/GLUTAMINE/CALCIUM BMB 1 EACH POWD.PACK PO SCH ×2 (09:30→17:25)
[2023-06-26] MEDS: POLYETHYLENE GLYCOL 3350 17 GM POWD.PACK PO SCH ×2 (09:30→17:25)
[2023-06-26] MEDS ORDERED: KEY,NONCONTROL,TO KEEP IN PYXI 1 EA MC ONE ×2 (09:36→17:17)
[2023-06-26] MEDS: SEVELAMER CARBONATE 800 MG TABLET PO SCH ×3 (09:40→17:27)
[2023-06-26] MEDS: Z GUARD REMEDY 4 OZ OINT TP SCH (09:40)
[2023-06-26] MEDS: ASPIRIN 325 MG TABLET PO SCH (09:41)
[2023-06-26] MEDS: busPIRone 5 MG TABLET PO SCH ×2 (09:42→17:25)
[2023-06-26] MEDS: VIT B CMPLX 3/FA/VIT C/BIOTIN 1 TAB TABLET PO SCH (09:42)
[2023-06-26] MEDS: GABAPENTIN 100 MG CAPSULE PO SCH ×2 (09:42→17:25)
[2023-06-26] MEDS: SENNOSIDES 8.6 MG TABLET PO SCH ×2 (09:42→17:26)
[2023-06-26] MEDS: FLUOXETINE HCL 20 MG CAPSULE PO SCH (09:42)
[2023-06-26] MEDS: NALOXONE SL SCH ×2 (09:43→17:26)
[2023-06-26] MEDS: BUPRENORPHINE SL SCH ×2 (09:43→17:26)
[2023-06-26] MEDS: DOCUSATE SODIUM LIQ 100 MG/10 ML UDC PO SCH ×2 (09:43→17:25)
[2023-06-26] MEDS: ASCORBIC ACID 500 MG TABLET PO SCH (09:47)
[2023-06-26] MEDS: cetrizine 10 MG TABLET PO SCH (09:47)
[2023-06-26 10:48] LABS: CALCIUM, SERUM 9.2 mg/dL (8.5-10.1); CREATININE 5.2 mg/dL (0.6-1.3); POTASSIUM 4.4 mmol/L (3.5-5.1)
[2023-06-26 11:05] LABS: BASOPHILS # (AUTO) 0.1 K/uL (0.0-0.2); BASOPHILS % (AUTO) 1.1 % (0.0-2.0); EOSINOPHILS # (AUTO) 0.5 K/uL (0.0-0.7); EOSINOPHILS % (AUTO) 8.1 % (0.0-6.0); HEMATOCRIT 31 % (33-45); LYMPHOCYTES # (AUTO) 1.2 K/uL (0.8-4.8); LYMPHOCYTES % (AUTO) 21.2 % (20.0-44.0); MEAN CORPUSCULAR HEMOGLOBIN 28 PG (26.0-33.0); MEAN CORPUSCULAR HGB CONC 32 g/dl (31.0-36.0); MEAN CORPUSCULAR VOLUME 89 fL (82-100); MONOCYTES # (AUTO) 0.7 K/uL (0.1-1.30); MONOCYTES % (AUTO) 11.9 % (2.0-12.0); NEUTROPHILS # (AUTO) 3.3 K/uL (1.8-8.9); NEUTROPHILS % (AUTO) 57.7 % (43.0-81.0); PLATELET COUNT (AUTO) 191 K/uL (150-450); RED BLOOD CELL COUNT(AUTO) 3.52 MIL/uL (4.0-5.2); RED CELL DISTRIBUTION WIDTH 16.9 % (11.5-15.0); WHITE BLOOD COUNT (AUTO) 5.7 K/uL (4.3-11.0)
[2023-06-26] MEDS: MIDODRINE HCL (5MG) 5 MG TABLET PO PRN ×2 (11:11→17:01)
[2023-06-26] MEDS: ATORVASTATIN 40 MG TABLET PO SCH (21:07)
[2023-06-26] MEDS: TRAZODONE 50 MG TABLET PO SCH (21:08)
[2023-06-27] VITALS (10 sets, daily range): BP systolic 101–123; BP diastolic 54–64; TEMP 98–98.2; O2SAT 95–99
[2023-06-27 06:54] LABS: BASOPHILS % (AUTO) 0.6 % (0.0-2.0); EOSINOPHILS # (AUTO) 0.5 K/uL (0.0-0.7); EOSINOPHILS % (AUTO) 8.2 % (0.0-6.0); HEMATOCRIT 31 % (33-45); HEMOGLOBIN 9.7 g/dL (11.5-14.8); LYMPHOCYTES # (AUTO) 1.5 K/uL (0.8-4.8); LYMPHOCYTES % (AUTO) 24.5 % (20.0-44.0); MEAN CORPUSCULAR HEMOGLOBIN 28 PG (26.0-33.0); MEAN CORPUSCULAR HGB CONC 31 g/dl (31.0-36.0); MEAN CORPUSCULAR VOLUME 90 fL (82-100); MONOCYTES # (AUTO) 0.7 K/uL (0.1-1.30); MONOCYTES % (AUTO) 11.6 % (2.0-12.0); NEUTROPHILS # (AUTO) 3.5 K/uL (1.8-8.9); NEUTROPHILS % (AUTO) 55.1 % (43.0-81.0); PLATELET COUNT (AUTO) 191 K/uL (150-450); RED BLOOD CELL COUNT(AUTO) 3.44 MIL/uL (4.0-5.2); RED CELL DISTRIBUTION WIDTH 16.5 % (11.5-15.0); WHITE BLOOD COUNT (AUTO) 6.3 K/uL (4.3-11.0)
[2023-06-27 07:07] LABS: ALBUMIN 2.9 g/dL (3.4-5.0); BILIRUBIN,TOTAL 0.3 mg/dL (0.2-1.0); CALCIUM, SERUM 9.1 mg/dL (8.5-10.1); MAGNESIUM 2.8 mg/dL (1.8-2.4); PHOSPHORUS 2.7 mg/dL (2.5-4.9); POTASSIUM 4.9 mmol/L (3.5-5.1)
[2023-06-27] MEDS: cetrizine 10 MG TABLET PO SCH (08:08)
[2023-06-27] MEDS: busPIRone 5 MG TABLET PO SCH ×2 (08:08→16:07)
[2023-06-27] MEDS: VIT B CMPLX 3/FA/VIT C/BIOTIN 1 TAB TABLET PO SCH (08:08)
[2023-06-27] MEDS: DOCUSATE SODIUM LIQ 100 MG/10 ML UDC PO SCH ×3 (08:08→16:25)
[2023-06-27] MEDS: SEVELAMER CARBONATE 800 MG TABLET PO SCH ×3 (08:09→17:44)
[2023-06-27] MEDS: FLUOXETINE HCL 20 MG CAPSULE PO SCH (08:09)
[2023-06-27] MEDS: SENNOSIDES 8.6 MG TABLET PO SCH ×2 (08:11→16:07)
[2023-06-27] MEDS: POLYETHYLENE GLYCOL 3350 17 GM POWD.PACK PO SCH ×2 (08:11→16:07)
[2023-06-27] MEDS: GABAPENTIN 100 MG CAPSULE PO SCH ×2 (08:11→16:07)
[2023-06-27] MEDS: ASPIRIN 325 MG TABLET PO SCH (08:11)
[2023-06-27] MEDS: ASCORBIC ACID 500 MG TABLET PO SCH (08:11)
[2023-06-27] MEDS: CLOTRIMAZOLE 1% 15 GM TUBE TP SCH ×2 (08:12→16:08)
[2023-06-27] MEDS: PROSOURCE / PROSTAT (PYXIS) 30 ML UDC PO SCH ×3 (08:12→16:08)
[2023-06-27] MEDS: Z GUARD REMEDY 4 OZ OINT TP SCH (08:12)
[2023-06-27] MEDS: THERAHONEY GEL 1.5 OZ TUBE TP SCH (08:12)
[2023-06-27] MEDS: NALOXONE SL SCH ×2 (08:17→16:05)
[2023-06-27] MEDS: BUPRENORPHINE SL SCH ×2 (08:17→16:05)
[2023-06-27] MEDS: FLUTICASONE PROPIONATE 16 GM BOTTLE NS SCH ×2 (08:21→16:09)
[2023-06-27] MEDS ORDERED: KEY,NONCONTROL,TO KEEP IN PYXI 1 EA MC ONE (08:23)
[2023-06-27] MEDS: ARGININE/GLUTAMINE/CALCIUM BMB 1 EACH POWD.PACK PO SCH ×2 (08:25→16:08)
[2023-06-27] MEDS ORDERED: BISACODYL SUPP (10 MG) 10 MG/SUPP.RECT SUPP.RECT RC PRN (11:30)
[2023-06-27] MEDS ORDERED: LACTULOSE 10 G/15 ML UDC (PYXIS) PO PRN (11:30)
[2023-06-27] MEDS ORDERED: SORBITOL SOLUTION 70% 30 ML SOLUTION PO PRN (11:30)
[2023-06-27] MEDS: ATORVASTATIN 40 MG TABLET PO SCH (21:11)
[2023-06-27] MEDS: ACETAMINOPHEN 325 MG TABLET PO PRN (21:12)
[2023-06-27] MEDS: TRAZODONE 50 MG TABLET PO SCH (21:12)
[2023-06-28] VITALS (9 sets, daily range): BP systolic 86–156; BP diastolic 49–82; TEMP 97.7–97.9; O2SAT 98–99
[2023-06-28] MEDS: PROSOURCE / PROSTAT (PYXIS) 30 ML UDC PO SCH ×3 (08:51→18:08)
[2023-06-28] MEDS: MIDODRINE HCL (5MG) 5 MG TABLET PO PRN ×2 (08:52→13:25)
[2023-06-28] MEDS: VIT B CMPLX 3/FA/VIT C/BIOTIN 1 TAB TABLET PO SCH (08:52)
[2023-06-28] MEDS: SEVELAMER CARBONATE 800 MG TABLET PO SCH ×3 (08:52→18:08)
[2023-06-28] MEDS: GABAPENTIN 100 MG CAPSULE PO SCH ×2 (08:53→18:08)
[2023-06-28] MEDS: ASPIRIN 325 MG TABLET PO SCH (08:54)
[2023-06-28] MEDS: SENNOSIDES 8.6 MG TABLET PO SCH ×2 (08:54→18:08)
[2023-06-28] MEDS: FLUOXETINE HCL 20 MG CAPSULE PO SCH (08:54)
[2023-06-28] MEDS: cetrizine 10 MG TABLET PO SCH (08:55)
[2023-06-28] MEDS: ARGININE/GLUTAMINE/CALCIUM BMB 1 EACH POWD.PACK PO SCH ×2 (08:55→18:08)
[2023-06-28] MEDS: DOCUSATE SODIUM LIQ 100 MG/10 ML UDC PO SCH ×2 (08:55→18:07)
[2023-06-28] MEDS: ASCORBIC ACID 500 MG TABLET PO SCH (08:55)
[2023-06-28] MEDS: busPIRone 5 MG TABLET PO SCH ×2 (08:55→18:07)
[2023-06-28] MEDS: CLOTRIMAZOLE 1% 15 GM TUBE TP SCH ×2 (08:57→18:08)
[2023-06-28] MEDS: FLUTICASONE PROPIONATE 16 GM BOTTLE NS SCH ×2 (08:57→18:07)
[2023-06-28] MEDS: POLYETHYLENE GLYCOL 3350 17 GM POWD.PACK PO SCH ×2 (09:00→18:08)
[2023-06-28] MEDS: NALOXONE SL SCH ×2 (09:00→17:00)
[2023-06-28] MEDS: BUPRENORPHINE SL SCH ×2 (09:00→17:00)
[2023-06-28] MEDS: Z GUARD REMEDY 4 OZ OINT TP SCH (09:01)
[2023-06-28] MEDS: THERAHONEY GEL 1.5 OZ TUBE TP SCH (09:01)
[2023-06-28] MEDS ORDERED: KEY,NONCONTROL,TO KEEP IN PYXI 1 EA MC ONE ×2 (10:07→15:44)
[2023-06-28] MEDS: hydrOXYzine 10 MG TABLET PO PRN (10:10)
[2023-06-28] MEDS ORDERED: ALBUMIN 25% 25 GM in PREMIX 1 EA IV STA (13:48)
[2023-06-28] MEDS: ATORVASTATIN 40 MG TABLET PO SCH (22:42)
[2023-06-28] MEDS: TRAZODONE 50 MG TABLET PO SCH (22:42)
[2023-06-29] VITALS (8 sets, daily range): BP systolic 93–134; BP diastolic 73–83; TEMP 97.3–98.8; O2SAT 96–99
[2023-06-29 06:17] LABS: BASOPHILS % (AUTO) 0.6 % (0.0-2.0); EOSINOPHILS # (AUTO) 0.6 K/uL (0.0-0.7); EOSINOPHILS % (AUTO) 9.9 % (0.0-6.0); HEMATOCRIT 30 % (33-45); HEMOGLOBIN 9.4 g/dL (11.5-14.8); LYMPHOCYTES # (AUTO) 1.6 K/uL (0.8-4.8); MEAN CORPUSCULAR HEMOGLOBIN 28 PG (26.0-33.0); MEAN CORPUSCULAR HGB CONC 31 g/dl (31.0-36.0); MEAN CORPUSCULAR VOLUME 91 fL (82-100); MONOCYTES # (AUTO) 0.6 K/uL (0.1-1.30); NEUTROPHILS # (AUTO) 3.5 K/uL (1.8-8.9); NEUTROPHILS % (AUTO) 54.5 % (43.0-81.0); PLATELET COUNT (AUTO) 185 K/uL (150-450); RED BLOOD CELL COUNT(AUTO) 3.35 MIL/uL (4.0-5.2); RED CELL DISTRIBUTION WIDTH 16.6 % (11.5-15.0); WHITE BLOOD COUNT (AUTO) 6.3 K/uL (4.3-11.0)
[2023-06-29 07:24] LABS: ALBUMIN 3.1 g/dL (3.4-5.0); BILIRUBIN,TOTAL 0.2 mg/dL (0.2-1.0); CALCIUM, SERUM 9.2 mg/dL (8.5-10.1); CREATININE 6.3 mg/dL (0.6-1.3); MAGNESIUM 3.4 mg/dL (1.8-2.4); PHOSPHORUS 2.7 mg/dL (2.5-4.9); POTASSIUM 6.1 mmol/L (3.5-5.1)
[2023-06-29] MEDS: PROSOURCE / PROSTAT (PYXIS) 30 ML UDC PO SCH ×3 (07:52→17:10)
[2023-06-29] MEDS: SEVELAMER CARBONATE 800 MG TABLET PO SCH ×3 (07:52→17:40)
[2023-06-29] MEDS: DOCUSATE SODIUM LIQ 100 MG/10 ML UDC PO SCH ×3 (09:00→17:11)
[2023-06-29] MEDS: BUPRENORPHINE SL SCH ×2 (09:00→17:00)
[2023-06-29] MEDS: NALOXONE SL SCH ×2 (09:00→17:00)
[2023-06-29] MEDS: POLYETHYLENE GLYCOL 3350 17 GM POWD.PACK PO SCH ×2 (09:00→17:00)
[2023-06-29] MEDS: FLUTICASONE PROPIONATE 16 GM BOTTLE NS SCH ×2 (09:18→17:10)
[2023-06-29] MEDS: VIT B CMPLX 3/FA/VIT C/BIOTIN 1 TAB TABLET PO SCH (09:19)
[2023-06-29] MEDS: FLUOXETINE HCL 20 MG CAPSULE PO SCH (09:20)
[2023-06-29] MEDS: busPIRone 5 MG TABLET PO SCH ×2 (09:20→17:09)
[2023-06-29] MEDS: GABAPENTIN 100 MG CAPSULE PO SCH ×2 (09:20→17:09)
[2023-06-29] MEDS: ASCORBIC ACID 500 MG TABLET PO SCH (09:21)
[2023-06-29] MEDS: cetrizine 10 MG TABLET PO SCH (09:22)
[2023-06-29] MEDS: ASPIRIN 325 MG TABLET PO SCH (09:22)
[2023-06-29] MEDS: SENNOSIDES 8.6 MG TABLET PO SCH ×2 (09:23→17:10)
[2023-06-29] MEDS: hydrOXYzine 10 MG TABLET PO PRN (09:24)
[2023-06-29] MEDS: ARGININE/GLUTAMINE/CALCIUM BMB 1 EACH POWD.PACK PO SCH ×2 (09:25→17:10)
[2023-06-29] MEDS: THERAHONEY GEL 1.5 OZ TUBE TP SCH (09:26)
[2023-06-29] MEDS: CLOTRIMAZOLE 1% 15 GM TUBE TP SCH ×2 (09:36→17:11)
[2023-06-29] MEDS: Z GUARD REMEDY 4 OZ OINT TP SCH (09:37)
[2023-06-29] MEDS ORDERED: INSULIN REGULAR, HUMAN 100 UNIT/ML 3 ML VIAL IV ONE (10:30)
[2023-06-29] MEDS ORDERED: DEXTROSE 50%-WATER 50 ML DISP.SYRIN IVP ONE (10:30)
[2023-06-29] MEDS ORDERED: Calcium Gluconate 0.465 MEQ/ML VIAL IV ONE (10:30)
[2023-06-29] MEDS ORDERED: Calcium Gluconate 1GM/10ML 4.65 MEQ in IV NS 0.9% 100 ML IV ONE (11:00)
[2023-06-29 12:17] LABS: CREATININE 6.5 mg/dL (0.6-1.3); POTASSIUM 5.1 mmol/L (3.5-5.1)
[2023-06-29] MEDS: ALBUMIN 25% 25 GM in PREMIX 1 EA IV PRN ×2 (14:13→15:11)
[2023-06-29] MEDS: TRAZODONE 50 MG TABLET PO SCH (22:00)
[2023-06-29] MEDS: ACETAMINOPHEN 325 MG TABLET PO PRN (22:19)
[2023-06-29] MEDS: ATORVASTATIN 40 MG TABLET PO SCH (22:19)
[2023-06-30] VITALS (9 sets, daily range): BP systolic 101–155; BP diastolic 50–83; TEMP 97.4–99.3; O2SAT 97–99
[2023-06-30] MEDS ORDERED: BISACODYL SUPP (10 MG) 10 MG/SUPP.RECT SUPP.RECT RC ONE
[2023-06-30] MEDS ORDERED: LACTULOSE 10 G/15 ML UDC (PYXIS) PO ONE
[2023-06-30 06:29] LABS: BASOPHILS # (AUTO) 0.1 K/uL (0.0-0.2); EOSINOPHILS # (AUTO) 0.6 K/uL (0.0-0.7); EOSINOPHILS % (AUTO) 10.7 % (0.0-6.0); HEMATOCRIT 29 % (33-45); HEMOGLOBIN 9.3 g/dL (11.5-14.8); LYMPHOCYTES % (AUTO) 19.4 % (20.0-44.0); MEAN CORPUSCULAR HEMOGLOBIN 28 PG (26.0-33.0); MEAN CORPUSCULAR HGB CONC 32 g/dl (31.0-36.0); MEAN CORPUSCULAR VOLUME 89 fL (82-100); MONOCYTES # (AUTO) 0.6 K/uL (0.1-1.30); MONOCYTES % (AUTO) 11.4 % (2.0-12.0); NEUTROPHILS % (AUTO) 57.5 % (43.0-81.0); PLATELET COUNT (AUTO) 174 K/uL (150-450); RED CELL DISTRIBUTION WIDTH 16.1 % (11.5-15.0); WHITE BLOOD COUNT (AUTO) 5.3 K/uL (4.3-11.0)
[2023-06-30 06:52] LABS: ALBUMIN 3.4 g/dL (3.4-5.0); BILIRUBIN,TOTAL 0.2 mg/dL (0.2-1.0); CALCIUM, SERUM 9.2 mg/dL (8.5-10.1); CREATININE 5.3 mg/dL (0.6-1.3); PHOSPHORUS 2.2 mg/dL (2.5-4.9); POTASSIUM 5.1 mmol/L (3.5-5.1)
[2023-06-30] MEDS: VIT B CMPLX 3/FA/VIT C/BIOTIN 1 TAB TABLET PO SCH (08:12)
[2023-06-30] MEDS: SEVELAMER CARBONATE 800 MG TABLET PO SCH ×3 (08:12→18:56)
[2023-06-30] MEDS: ASCORBIC ACID 500 MG TABLET PO SCH (08:12)
[2023-06-30] MEDS: POLYETHYLENE GLYCOL 3350 17 GM POWD.PACK PO SCH ×2 (08:12→16:40)
[2023-06-30] MEDS: DOCUSATE SODIUM LIQ 100 MG/10 ML UDC PO SCH ×2 (08:12→16:40)
[2023-06-30] MEDS: SENNOSIDES 8.6 MG TABLET PO SCH ×2 (08:12→16:40)
[2023-06-30] MEDS: busPIRone 5 MG TABLET PO SCH ×2 (08:13→16:40)
[2023-06-30] MEDS: FLUOXETINE HCL 20 MG CAPSULE PO SCH (08:18)
[2023-06-30] MEDS: ASPIRIN 325 MG TABLET PO SCH (08:18)
[2023-06-30] MEDS: cetrizine 10 MG TABLET PO SCH (08:18)
[2023-06-30] MEDS: GABAPENTIN 100 MG CAPSULE PO SCH ×2 (08:19→16:40)
[2023-06-30] MEDS: PROSOURCE / PROSTAT (PYXIS) 30 ML UDC PO SCH ×3 (08:19→16:40)
[2023-06-30] MEDS: FLUTICASONE PROPIONATE 16 GM BOTTLE NS SCH ×2 (08:42→16:39)
[2023-06-30] MEDS: ARGININE/GLUTAMINE/CALCIUM BMB 1 EACH POWD.PACK PO SCH ×2 (08:42→16:40)
[2023-06-30] MEDS: THERAHONEY GEL 1.5 OZ TUBE TP SCH (08:43)
[2023-06-30] MEDS: CLOTRIMAZOLE 1% 15 GM TUBE TP SCH ×2 (08:43→16:40)
[2023-06-30] MEDS: Z GUARD REMEDY 4 OZ OINT TP SCH (08:43)
[2023-06-30] MEDS: NALOXONE SL SCH ×2 (09:00→16:40)
[2023-06-30] MEDS: BUPRENORPHINE SL SCH ×2 (09:00→16:40)
[2023-06-30] MEDS: TRAZODONE 50 MG TABLET PO SCH (21:58)
[2023-06-30] MEDS: ATORVASTATIN 40 MG TABLET PO SCH (21:58)
[2023-06-30] MEDS: hydrOXYzine 10 MG TABLET PO PRN (22:17)
[2023-07-01] VITALS (10 sets, daily range): BP systolic 146–168; BP diastolic 71–84; TEMP 98.2–98.6; O2SAT 95–100
[2023-07-01 07:50] LABS: BASOPHILS # (AUTO) 0.1 K/uL (0.0-0.2); BASOPHILS % (AUTO) 0.8 % (0.0-2.0); EOSINOPHILS # (AUTO) 0.7 K/uL (0.0-0.7); EOSINOPHILS % (AUTO) 9.5 % (0.0-6.0); HEMATOCRIT 31 % (33-45); HEMOGLOBIN 9.8 g/dL (11.5-14.8); LYMPHOCYTES # (AUTO) 1.7 K/uL (0.8-4.8); LYMPHOCYTES % (AUTO) 24.2 % (20.0-44.0); MEAN CORPUSCULAR HEMOGLOBIN 29 PG (26.0-33.0); MEAN CORPUSCULAR HGB CONC 32 g/dl (31.0-36.0); MEAN CORPUSCULAR VOLUME 89 fL (82-100); MONOCYTES # (AUTO) 0.7 K/uL (0.1-1.30); MONOCYTES % (AUTO) 10.3 % (2.0-12.0); NEUTROPHILS # (AUTO) 3.8 K/uL (1.8-8.9); NEUTROPHILS % (AUTO) 55.2 % (43.0-81.0); PLATELET COUNT (AUTO) 208 K/uL (150-450); RED BLOOD CELL COUNT(AUTO) 3.42 MIL/uL (4.0-5.2); RED CELL DISTRIBUTION WIDTH 16.1 % (11.5-15.0); WHITE BLOOD COUNT (AUTO) 6.9 K/uL (4.3-11.0)
[2023-07-01 08:00] LABS: ALBUMIN 3.5 g/dL (3.4-5.0); BILIRUBIN,TOTAL 0.3 mg/dL (0.2-1.0); CALCIUM, SERUM 9.5 mg/dL (8.5-10.1); CREATININE 6.4 mg/dL (0.6-1.3); MAGNESIUM 3.8 mg/dL (1.8-2.4); PHOSPHORUS 2.3 mg/dL (2.5-4.9); POTASSIUM 5.7 mmol/L (3.5-5.1); TOTAL PROTEIN, SERUM 7.6 g/dL (6.4-8.2)
[2023-07-01] MEDS: VIT B CMPLX 3/FA/VIT C/BIOTIN 1 TAB TABLET PO SCH (08:21)
[2023-07-01] MEDS: DOCUSATE SODIUM LIQ 100 MG/10 ML UDC PO SCH ×2 (08:21→17:12)
[2023-07-01] MEDS: GABAPENTIN 100 MG CAPSULE PO SCH ×2 (08:22→17:12)
[2023-07-01] MEDS: FLUOXETINE HCL 20 MG CAPSULE PO SCH (08:22)
[2023-07-01] MEDS: SENNOSIDES 8.6 MG TABLET PO SCH ×2 (08:22→17:12)
[2023-07-01] MEDS: ASPIRIN 325 MG TABLET PO SCH (08:22)
[2023-07-01] MEDS: SEVELAMER CARBONATE 800 MG TABLET PO SCH ×3 (08:22→17:12)
[2023-07-01] MEDS: busPIRone 5 MG TABLET PO SCH ×2 (08:22→17:12)
[2023-07-01] MEDS: ASCORBIC ACID 500 MG TABLET PO SCH (08:22)
[2023-07-01] MEDS: CLOTRIMAZOLE 1% 15 GM TUBE TP SCH ×2 (08:23→17:13)
[2023-07-01] MEDS: Z GUARD REMEDY 4 OZ OINT TP SCH (08:23)
[2023-07-01] MEDS: cetrizine 10 MG TABLET PO SCH (08:23)
[2023-07-01] MEDS: FLUTICASONE PROPIONATE 16 GM BOTTLE NS SCH ×2 (08:23→17:12)
[2023-07-01] MEDS: PROSOURCE / PROSTAT (PYXIS) 30 ML UDC PO SCH ×3 (08:23→17:12)
[2023-07-01] MEDS: THERAHONEY GEL 1.5 OZ TUBE TP SCH (08:23)
[2023-07-01] MEDS: POLYETHYLENE GLYCOL 3350 17 GM POWD.PACK PO SCH ×2 (08:23→17:12)
[2023-07-01] MEDS: ARGININE/GLUTAMINE/CALCIUM BMB 1 EACH POWD.PACK PO SCH ×2 (08:24→17:12)
[2023-07-01] MEDS: BUPRENORPHINE SL SCH ×2 (09:00→17:00)
[2023-07-01] MEDS: NALOXONE SL SCH ×2 (09:00→17:00)
[2023-07-01 12:06] LABS: PLATELET ESTIMATE ADEQUATE
[2023-07-01] MEDS: ATORVASTATIN 40 MG TABLET PO SCH (23:27)
[2023-07-01] MEDS: TRAZODONE 50 MG TABLET PO SCH (23:28)
[2023-07-02] VITALS (8 sets, daily range): BP systolic 140–159; BP diastolic 71–89; TEMP 97.7–98.4; O2SAT 94–100
[2023-07-02 06:24] LABS: BASOPHILS % (AUTO) 0.6 % (0.0-2.0); EOSINOPHILS # (AUTO) 0.6 K/uL (0.0-0.7); EOSINOPHILS % (AUTO) 9.6 % (0.0-6.0); HEMATOCRIT 28 % (33-45); HEMOGLOBIN 8.9 g/dL (11.5-14.8); LYMPHOCYTES # (AUTO) 1.3 K/uL (0.8-4.8); MEAN CORPUSCULAR HEMOGLOBIN 28 PG (26.0-33.0); MEAN CORPUSCULAR HGB CONC 32 g/dl (31.0-36.0); MEAN CORPUSCULAR VOLUME 89 fL (82-100); MONOCYTES # (AUTO) 0.5 K/uL (0.1-1.30); NEUTROPHILS # (AUTO) 4.1 K/uL (1.8-8.9); NEUTROPHILS % (AUTO) 61.8 % (43.0-81.0); PLATELET COUNT (AUTO) 186 K/uL (150-450); RED BLOOD CELL COUNT(AUTO) 3.18 MIL/uL (4.0-5.2); RED CELL DISTRIBUTION WIDTH 16.1 % (11.5-15.0); WHITE BLOOD COUNT (AUTO) 6.6 K/uL (4.3-11.0)
[2023-07-02 07:28] LABS: ALBUMIN 3.1 g/dL (3.4-5.0); BILIRUBIN,TOTAL 0.3 mg/dL (0.2-1.0); CALCIUM, SERUM 8.9 mg/dL (8.5-10.1); CREATININE 4.8 mg/dL (0.6-1.3); MAGNESIUM 2.9 mg/dL (1.8-2.4); PHOSPHORUS 2.1 mg/dL (2.5-4.9); POTASSIUM 4.8 mmol/L (3.5-5.1); TOTAL PROTEIN, SERUM 6.7 g/dL (6.4-8.2)
[2023-07-02] MEDS: POLYETHYLENE GLYCOL 3350 17 GM POWD.PACK PO SCH ×2 (08:46→16:29)
[2023-07-02] MEDS: DOCUSATE SODIUM LIQ 100 MG/10 ML UDC PO SCH ×2 (08:46→16:29)
[2023-07-02] MEDS: cetrizine 10 MG TABLET PO SCH (08:47)
[2023-07-02] MEDS: VIT B CMPLX 3/FA/VIT C/BIOTIN 1 TAB TABLET PO SCH (08:47)
[2023-07-02] MEDS: ASCORBIC ACID 500 MG TABLET PO SCH (08:47)
[2023-07-02] MEDS: ASPIRIN 325 MG TABLET PO SCH (08:47)
[2023-07-02] MEDS: FLUOXETINE HCL 20 MG CAPSULE PO SCH (08:47)
[2023-07-02] MEDS: busPIRone 5 MG TABLET PO SCH ×2 (08:47→16:29)
[2023-07-02] MEDS: SENNOSIDES 8.6 MG TABLET PO SCH ×2 (08:47→16:29)
[2023-07-02] MEDS: ARGININE/GLUTAMINE/CALCIUM BMB 1 EACH POWD.PACK PO SCH ×2 (08:52→16:32)
[2023-07-02] MEDS: PROSOURCE / PROSTAT (PYXIS) 30 ML UDC PO SCH ×3 (08:52→16:32)
[2023-07-02] MEDS: SEVELAMER CARBONATE 800 MG TABLET PO SCH (08:52)
[2023-07-02] MEDS: GABAPENTIN 100 MG CAPSULE PO SCH ×2 (08:54→16:29)
[2023-07-02] MEDS: BUPRENORPHINE SL SCH ×2 (09:00→16:30)
[2023-07-02] MEDS: NALOXONE SL SCH ×2 (09:00→16:30)
[2023-07-02] MEDS: FLUTICASONE PROPIONATE 16 GM BOTTLE NS SCH ×2 (09:24→17:38)
[2023-07-02] MEDS: Z GUARD REMEDY 4 OZ OINT TP SCH (09:37)
[2023-07-02] MEDS: CLOTRIMAZOLE 1% 15 GM TUBE TP SCH ×2 (09:37→17:38)
[2023-07-02] MEDS: THERAHONEY GEL 1.5 OZ TUBE TP SCH (09:38)
[2023-07-02] MEDS: ALBUTEROL FS 2.5 MG/0.5 ML VIAL.NEB NEB PRN ×2 (11:48→15:45)
[2023-07-02] MEDS: hydrOXYzine PAMOATE 25 MG CAPSULE PO PRN (14:47)
[2023-07-02] MEDS: BUPRENORPHINE HCL 2 MG TAB.SUBL SL SCH (18:14)
[2023-07-02] MEDS: ACETAMINOPHEN 325 MG TABLET PO PRN (20:43)
[2023-07-02] MEDS ORDERED: BISACODYL SUPP (10 MG) 10 MG/SUPP.RECT SUPP.RECT RC PRN (21:15)
[2023-07-02] MEDS: ATORVASTATIN 40 MG TABLET PO SCH (22:10)
[2023-07-02] MEDS: TRAZODONE 50 MG TABLET PO SCH (22:10)
[2023-07-03] VITALS (9 sets, daily range): BP systolic 117–138; BP diastolic 65–76; TEMP 97.7–98.4; O2SAT 95–100
[2023-07-03 05:46] LABS: BASOPHILS % (AUTO) 0.7 % (0.0-2.0); EOSINOPHILS # (AUTO) 0.7 K/uL (0.0-0.7); HEMATOCRIT 30 % (33-45); HEMOGLOBIN 9.5 g/dL (11.5-14.8); LYMPHOCYTES # (AUTO) 1.7 K/uL (0.8-4.8); LYMPHOCYTES % (AUTO) 28.5 % (20.0-44.0); MEAN CORPUSCULAR HEMOGLOBIN 28 PG (26.0-33.0); MEAN CORPUSCULAR HGB CONC 32 g/dl (31.0-36.0); MEAN CORPUSCULAR VOLUME 90 fL (82-100); MONOCYTES # (AUTO) 0.6 K/uL (0.1-1.30); MONOCYTES % (AUTO) 10.9 % (2.0-12.0); NEUTROPHILS # (AUTO) 2.8 K/uL (1.8-8.9); NEUTROPHILS % (AUTO) 47.9 % (43.0-81.0); PLATELET COUNT (AUTO) 170 K/uL (150-450); RED BLOOD CELL COUNT(AUTO) 3.35 MIL/uL (4.0-5.2); RED CELL DISTRIBUTION WIDTH 16.3 % (11.5-15.0); WHITE BLOOD COUNT (AUTO) 5.8 K/uL (4.3-11.0)
[2023-07-03 06:12] LABS: CALCIUM, SERUM 9.2 mg/dL (8.5-10.1); CREATININE 6.1 mg/dL (0.6-1.3); MAGNESIUM 3.4 mg/dL (1.8-2.4); PHOSPHORUS 2.9 mg/dL (2.5-4.9); POTASSIUM 5.6 mmol/L (3.5-5.1)
[2023-07-03] MEDS: BUPRENORPHINE SL SCH ×2 (09:00→17:00)
[2023-07-03] MEDS: NALOXONE SL SCH ×2 (09:00→17:00)
[2023-07-03] MEDS: BUPRENORPHINE HCL 2 MG TAB.SUBL SL SCH ×2 (09:00→18:24)
[2023-07-03] MEDS ORDERED: KEY,NONCONTROL,TO KEEP IN PYXI 1 EA MC ONE (11:53)
[2023-07-03] MEDS: PROSOURCE / PROSTAT (PYXIS) 30 ML UDC PO SCH ×3 (11:55→17:49)
[2023-07-03] MEDS: FLUTICASONE PROPIONATE 16 GM BOTTLE NS SCH ×2 (11:55→17:50)
[2023-07-03] MEDS: SENNOSIDES 8.6 MG TABLET PO SCH ×2 (11:56→17:50)
[2023-07-03] MEDS: FLUOXETINE HCL 20 MG CAPSULE PO SCH (11:57)
[2023-07-03] MEDS: ATORVASTATIN 40 MG TABLET PO SCH (11:57)
[2023-07-03] MEDS: ASPIRIN 325 MG TABLET PO SCH (11:57)
[2023-07-03] MEDS: VIT B CMPLX 3/FA/VIT C/BIOTIN 1 TAB TABLET PO SCH (11:57)
[2023-07-03] MEDS: busPIRone 5 MG TABLET PO SCH ×2 (11:58→17:50)
[2023-07-03] MEDS: cetrizine 10 MG TABLET PO SCH (11:58)
[2023-07-03] MEDS: ASCORBIC ACID 500 MG TABLET PO SCH (11:58)
[2023-07-03] MEDS: GABAPENTIN 100 MG CAPSULE PO SCH ×2 (11:58→17:50)
[2023-07-03] MEDS: CLOTRIMAZOLE 1% 15 GM TUBE TP SCH ×2 (11:59→17:52)
[2023-07-03] MEDS: THERAHONEY GEL 1.5 OZ TUBE TP SCH (11:59)
[2023-07-03] MEDS: DOCUSATE SODIUM LIQ 100 MG/10 ML UDC PO SCH ×2 (12:00→17:50)
[2023-07-03] MEDS: ARGININE/GLUTAMINE/CALCIUM BMB 1 EACH POWD.PACK PO SCH ×2 (12:00→17:49)
[2023-07-03] MEDS: POLYETHYLENE GLYCOL 3350 17 GM POWD.PACK PO SCH ×2 (12:01→17:50)
[2023-07-03] MEDS: Z GUARD REMEDY 4 OZ OINT TP SCH (12:02)
[2023-07-03] MEDS: ACETAMINOPHEN 325 MG TABLET PO PRN (13:37)
[2023-07-03] MEDS: hydrOXYzine PAMOATE 25 MG CAPSULE PO PRN (16:37)
[2023-07-03] MEDS: TRAZODONE 50 MG TABLET PO SCH (21:42)
[2023-07-04] VITALS (11 sets, daily range): BP systolic 120–141; BP diastolic 64–82; TEMP 98.4–99; O2SAT 96–99
[2023-07-04] MEDS: ALBUTEROL FS 2.5 MG/0.5 ML VIAL.NEB NEB PRN (00:43)
[2023-07-04] MEDS: VIT B CMPLX 3/FA/VIT C/BIOTIN 1 TAB TABLET PO SCH (09:00)
[2023-07-04] MEDS: POLYETHYLENE GLYCOL 3350 17 GM POWD.PACK PO SCH ×2 (09:00→17:54)
[2023-07-04] MEDS: ARGININE/GLUTAMINE/CALCIUM BMB 1 EACH POWD.PACK PO SCH ×2 (09:00→17:00)
[2023-07-04] MEDS: NALOXONE SL SCH ×2 (09:00→17:00)
[2023-07-04] MEDS: DOCUSATE SODIUM LIQ 100 MG/10 ML UDC PO SCH ×2 (09:00→17:54)
[2023-07-04] MEDS: BUPRENORPHINE SL SCH ×2 (09:00→17:00)
[2023-07-04] MEDS: busPIRone 5 MG TABLET PO SCH ×2 (09:00→17:55)
[2023-07-04] MEDS: PROSOURCE / PROSTAT (PYXIS) 30 ML UDC PO SCH ×3 (09:00→17:00)
[2023-07-04] MEDS: BUPRENORPHINE HCL 2 MG TAB.SUBL SL SCH ×2 (09:01→17:55)
[2023-07-04] MEDS: cetrizine 10 MG TABLET PO SCH (09:02)
[2023-07-04] MEDS: SENNOSIDES 8.6 MG TABLET PO SCH ×2 (09:04→17:54)
[2023-07-04] MEDS: FLUOXETINE HCL 20 MG CAPSULE PO SCH (09:04)
[2023-07-04] MEDS: ASPIRIN 325 MG TABLET PO SCH (09:04)
[2023-07-04] MEDS: GABAPENTIN 100 MG CAPSULE PO SCH ×2 (09:05→17:55)
[2023-07-04] MEDS: ASCORBIC ACID 500 MG TABLET PO SCH (09:05)
[2023-07-04] MEDS: FLUTICASONE PROPIONATE 16 GM BOTTLE NS SCH ×2 (10:02→17:56)
[2023-07-04] MEDS: CLOTRIMAZOLE 1% 15 GM TUBE TP SCH ×2 (10:02→17:57)
[2023-07-04] MEDS: Z GUARD REMEDY 4 OZ OINT TP SCH (10:03)
[2023-07-04] MEDS: THERAHONEY GEL 1.5 OZ TUBE TP SCH (10:03)
[2023-07-04] MEDS: hydrOXYzine PAMOATE 25 MG CAPSULE PO PRN (16:01)
[2023-07-04] MEDS: TRAZODONE 50 MG TABLET PO SCH (21:28)
[2023-07-04] MEDS: ATORVASTATIN 40 MG TABLET PO SCH (21:28)
[2023-07-05 01:40] VITALS: O2SAT 97
[2023-07-05] MEDS: ACETAMINOPHEN 325 MG TABLET PO PRN (05:10)
[2023-07-05 07:56] VITALS: O2SAT 98
[2023-07-05] MEDS: PROSOURCE / PROSTAT (PYXIS) 30 ML UDC PO SCH ×2 (08:57→12:23)
[2023-07-05] MEDS: POLYETHYLENE GLYCOL 3350 17 GM POWD.PACK PO SCH ×2 (08:58→09:00)
[2023-07-05] MEDS: ASCORBIC ACID 500 MG TABLET PO SCH (08:58)
[2023-07-05] MEDS: ARGININE/GLUTAMINE/CALCIUM BMB 1 EACH POWD.PACK PO SCH (08:58)
[2023-07-05] MEDS: FLUOXETINE HCL 20 MG CAPSULE PO SCH (08:58)
[2023-07-05] MEDS: DOCUSATE SODIUM LIQ 100 MG/10 ML UDC PO SCH (08:58)
[2023-07-05] MEDS: VIT B CMPLX 3/FA/VIT C/BIOTIN 1 TAB TABLET PO SCH (08:58)
[2023-07-05] MEDS: SENNOSIDES 8.6 MG TABLET PO SCH (08:58)
[2023-07-05] MEDS: ASPIRIN 325 MG TABLET PO SCH (08:58)
[2023-07-05] MEDS: cetrizine 10 MG TABLET PO SCH (09:00)
[2023-07-05] MEDS: busPIRone 5 MG TABLET PO SCH (09:00)
[2023-07-05] MEDS: NALOXONE SL SCH (09:00)
[2023-07-05] MEDS: BUPRENORPHINE SL SCH (09:00)
[2023-07-05] MEDS: GABAPENTIN 100 MG CAPSULE PO SCH (09:00)
[2023-07-05] MEDS: BUPRENORPHINE HCL 2 MG TAB.SUBL SL SCH (09:00)
[2023-07-05] MEDS: FLUTICASONE PROPIONATE 16 GM BOTTLE NS SCH (09:13)
[2023-07-05] MEDS: CLOTRIMAZOLE 1% 15 GM TUBE TP SCH (09:14)
[2023-07-05] MEDS: Z GUARD REMEDY 4 OZ OINT TP SCH (09:14)
[2023-07-05] MEDS: THERAHONEY GEL 1.5 OZ TUBE TP SCH (09:20)
[2023-07-05 11:44] VITALS: O2SAT 98
[2023-07-05 15:01] VITALS: O2SAT 97
== END 2023-07-05 17:15 | DRG 194 ==
LOC: ER 18:38 → TELE 21:49 → MED 06-24 13:26 → TELE 06-24 16:21 → MED 06-24 17:17
PROVIDERS: ADMIT Internal Medicine; ATTEND Internal Medicine
PROC: 5A1D70Z Performance of Urinary Filtration, Intermittent, Less than 6 Hours Per Day (ICD-10-PCS; principal; 2023-06-12)
PROC: 0JB90ZZ Excision of Buttock Subcutaneous Tissue and Fascia, Open Approach (ICD-10-PCS; 2023-06-12)
DX: I13.2 Hypertensive heart and chronic kidney disease with heart failure and with stage 5 chronic kidney disease, or end stage renal disease (principal); L89.313 Pressure ulcer of right buttock, stage 3; J96.11 Chronic respiratory failure with hypoxia; E44.0 Moderate protein-calorie malnutrition; E87.1 Hypo-osmolality and hyponatremia; D63.1 Anemia in chronic kidney disease; E88.09 Other disorders of plasma-protein metabolism, not elsewhere classified; N18.6 End stage renal disease; I50.33 Acute on chronic diastolic (congestive) heart failure; E87.5 Hyperkalemia; Z93.0 Tracheostomy status; Z99.11 Dependence on respirator [ventilator] status; E11.22 Type 2 diabetes mellitus with diabetic chronic kidney disease; E66.01 Morbid (severe) obesity due to excess calories; Z68.44 Body mass index [BMI] 60.0-69.9, adult; G47.33 Obstructive sleep apnea (adult) (pediatric); Z93.1 Gastrostomy status; Z99.2 Dependence on renal dialysis; E78.5 Hyperlipidemia, unspecified; K59.00 Constipation, unspecified; Z79.82 Long term (current) use of aspirin; Z79.899 Other long term (current) drug therapy; R13.12 Dysphagia, oropharyngeal phase
CPT/HCPCS: 31720; 36415; 71045-TC; 80048-TC; 80053-TC; 80076-TC; 82962-TC; 83735-TC; 84100-TC; 85025-TC; 85730-TC; 87081-TC; 90935-TC; 92526; 92611-TC; 94640-TC; 94664-TC; 94762-TC; 94799-TC; A4216; A4223; A4623; A6403; A7526; G0378; J0360; J0610; J1644; J1815; J2405; J3490; J7030; J7050; P9047; Q0177

== ENCOUNTER 2023-07-11 22:06 | Inpatient (IN) | payer MEDICAID ==
[~2023-07-11] VITALS: Ht 165.1 cm; Wt 150.6 kg
[~2023-07-11 22:06] MED LIST changes: +AMIN30LI2 PO; +ASCO-495 PO; -BUPR1TAB44 SL; +BUSP10TA35 PO; +CHOL100043 PO; +MAG-151 PO; -MAG30ORA PO; +MIDO5TAB4 PO; +SEMA0.25 SQ; +ZINC50TA69 PO
[2023-07-11] MEDS ORDERED: IPRATROPIUM NEB FS 0.5 MG/2.5 ML AMPUL.NEB NEB ONE (22:30)
[2023-07-11] MEDS ORDERED: ALBUTEROL FS 2.5 MG/3 ML VIAL.NEB NEB ONE (22:30)
[2023-07-11] MEDS ORDERED: ALBUTEROL FS 2.5 MG/3 ML VIAL.NEB ONE (22:32)
[2023-07-11] MEDS ORDERED: IPRATROPIUM NEB FS 0.5 MG/2.5 ML AMPUL.NEB ONE (22:33)
[2023-07-11 22:38] VITALS: O2SAT 100
[2023-07-11 22:43] VITALS: O2SAT 100
[2023-07-11 22:44] VITALS: O2SAT 100
[2023-07-11 22:45] LABS: INR 1.03 (0.91-1.10); PARTIAL THROMBOPLASTIN TIME 30.8 SEC (24.3-34.3); PROTHROMBIN TIME 10.9 SECS (9.2-11.1)
[2023-07-11 22:57] LABS: ALANINE AMINOTRANSFERASE 25 U/L (12-78); ALBUMIN 3.7 g/dL (3.4-5.0); ALKALINE PHOSPHATASE 152 U/L (46-116); ASPARTATE AMINOTRANSFERASE 26 U/L (15-37); BILIRUBIN,DIRECT 0.1 mg/dL (0.0-0.2); BILIRUBIN,TOTAL 0.3 mg/dL (0.2-1.0); CALCIUM, SERUM 9.4 mg/dL (8.5-10.1); CARBON DIOXIDE 23 mmol/L (21-32); CHLORIDE 102 mmol/L (98-107); CREATININE 5.7 mg/dL (0.6-1.3); GLUCOSE 136 mg/dL (74-106); NT-PRO BNP 4030 pg/mL (0-125); POTASSIUM 4.4 mmol/L (3.5-5.1); SODIUM SERUM 137 mmol/L (136-145); TOTAL PROTEIN, SERUM 8.1 g/dL (6.4-8.2); UREA NITROGEN, BLOOD 47 mg/dL (7-18)
[2023-07-11 22:59] VITALS: O2SAT 100
[2023-07-11 23:02] LABS: BASOPHILS % (AUTO) 0.5 % (0.0-2.0); EOSINOPHILS # (AUTO) 0.6 K/uL (0.0-0.7); EOSINOPHILS % (AUTO) 7.3 % (0.0-6.0); HEMATOCRIT 34 % (33-45); HEMOGLOBIN 10.4 g/dL (11.5-14.8); LYMPHOCYTES # (AUTO) 2.7 K/uL (0.8-4.8); LYMPHOCYTES % (AUTO) 36.1 % (20.0-44.0); MEAN CORPUSCULAR HEMOGLOBIN 28 PG (26.0-33.0); MEAN CORPUSCULAR HGB CONC 31 g/dl (31.0-36.0); MEAN CORPUSCULAR VOLUME 92 fL (82-100); MONOCYTES # (AUTO) 0.7 K/uL (0.1-1.30); MONOCYTES % (AUTO) 8.6 % (2.0-12.0); NEUTROPHILS # (AUTO) 3.6 K/uL (1.8-8.9); NEUTROPHILS % (AUTO) 47.5 % (43.0-81.0); PLATELET COUNT (AUTO) 235 K/uL (150-450); RED BLOOD CELL COUNT(AUTO) 3.69 MIL/uL (4.0-5.2); RED CELL DISTRIBUTION WIDTH 16.6 % (11.5-15.0); WHITE BLOOD COUNT (AUTO) 7.6 K/uL (4.3-11.0)
[2023-07-11 23:07] LABS: LACTIC ACID 2.1 mmol/L (0.4-2.0)
[2023-07-12] VITALS (13 sets, daily range): BP systolic 110–139; BP diastolic 61–70; TEMP 98.2–99.1; O2SAT 97–100
[2023-07-12] MEDS ORDERED: CALCIUM CARBONATE 500 MG TAB.CHEW PO PRN (00:30)
[2023-07-12] MEDS ORDERED: MIDODRINE HCL (5MG) 5 MG TABLET PO PRN (00:30)
[2023-07-12] MEDS ORDERED: ONDANSETRON HCL/PF 4 MG/2 ML VIAL IVP PRN (00:30)
[2023-07-12] MEDS ORDERED: ACETAMINOPHEN 325 MG TABLET PO PRN (00:30)
[2023-07-12] MEDS ORDERED: ZOLPIDEM TARTRATE 5 MG TABLET PO PRN (00:30)
[2023-07-12] MEDS ORDERED: DEXTROSE 50%-WATER 50 ML DISP.SYRIN IV PRN (00:30)
[2023-07-12] MEDS ORDERED: ALBUTEROL FS 2.5 MG/3 ML VIAL.NEB IH PRN (00:30)
[2023-07-12] MEDS ORDERED: MAGNESIUM HYDROXIDE 30 ML UDC PO PRN (00:30)
[2023-07-12] MEDS ORDERED: MAG HYDROX/AL HYDROX/SIMETH 30 ML UDC PO PRN ×2 (00:30→01:30)
[2023-07-12] MEDS ORDERED: Z GUARD REMEDY 4 OZ OINT TP PRN (00:30)
[2023-07-12] MEDS ORDERED: CEFTRIAXONE 1GM BAG (ER ONLY) 50 ML IV ONE (01:39)
[2023-07-12] MEDS: CEFTRIAXONE 1 G in IV D5W 50 ML IV SCH (01:43)
[2023-07-12] MEDS ORDERED: AZITHROMYCIN 500 MG VIAL ONE (02:35)
[2023-07-12] MEDS: AZITHROMYCIN 500 MG in IV D5W 250 ML IV SCH (02:41)
[2023-07-12] MEDS: BLOOD SUGAR DIAGNOSTIC 1 EACH STRIP IN SCH ×4 (07:30→22:33)
[2023-07-12] MEDS: INSULIN REGULAR, HUMAN 100 UNIT/ML 3 ML VIAL SQ PRN ×4 (07:31→22:34)
[2023-07-12] MEDS: SEVELAMER CARBONATE 800 MG TABLET PO SCH ×3 (08:15→17:09)
[2023-07-12] MEDS: ASPIRIN 325 MG TABLET PO SCH (08:35)
[2023-07-12] MEDS: CHOLECALCIFEROL 1,000 UNIT TABLET (VIT D3) PO SCH (08:35)
[2023-07-12] MEDS: SENNOSIDES 8.6 MG TABLET PO SCH ×2 (08:35→17:09)
[2023-07-12] MEDS: FLUOXETINE HCL 20 MG CAPSULE PO SCH (08:36)
[2023-07-12] MEDS: VIT B CMPLX 3/FA/VIT C/BIOTIN 1 TAB TABLET PO SCH (08:36)
[2023-07-12] MEDS: PROSOURCE / PROSTAT (PYXIS) 30 ML UDC PO SCH ×2 (08:41→17:09)
[2023-07-12] MEDS: GABAPENTIN 100 MG CAPSULE PO SCH ×2 (08:42→17:09)
[2023-07-12] MEDS: AMLODIPINE BESYLATE 2.5 MG TABLET PO SCH (08:42)
[2023-07-12] MEDS: POLYETHYLENE GLYCOL 3350 17 GM POWD.PACK PO SCH ×2 (08:45→17:09)
[2023-07-12] MEDS: ASCORBIC ACID 500 MG TABLET PO SCH (08:52)
[2023-07-12] MEDS: busPIRone 5 MG TABLET PO SCH ×2 (08:52→17:09)
[2023-07-12] MEDS: HEPARIN SODIUM, PORCINE 5000 UNITS/1 ML VIAL SQ SCH ×2 (08:58→22:10)
[2023-07-12] MEDS ORDERED: busPIRone HCL 10 MG TABLET PO SCH (09:00)
[2023-07-12] MEDS ORDERED: ASCORBIC ACID 250 MG TABLET PO SCH (09:00)
[2023-07-12] MEDS ORDERED: Medication Not On Formulary EA (Patiromer Calcium Sorbitex (Veltassa) 8.4 GM) PO SCH (09:00)
[2023-07-12] MEDS ORDERED: MAGN400O6 PO (09:46)
[2023-07-12] MEDS ORDERED: BISA10SU11 RC (09:46)
[2023-07-12] MEDS ORDERED: ACET-868 PO (09:46)
[2023-07-12] MEDS ORDERED: NA P133E RC (09:46)
[2023-07-12] MEDS ORDERED: IPRA3AMP23 IH (09:46)
[2023-07-12] MEDS ORDERED: HYDR1SOL MC (09:46)
[2023-07-12] MEDS ORDERED: ACET-2605 PO (09:46)
[2023-07-12] MEDS ORDERED: MENT113O TP (09:46)
[2023-07-12] MEDS: FLUTICASONE PROPIONATE 16 GM BOTTLE NS SCH ×2 (10:02→17:08)
[2023-07-12] MEDS: ATORVASTATIN 40 MG TABLET PO SCH (22:09)
[2023-07-12] MEDS: TRAZODONE 50 MG TABLET PO SCH (22:09)
[2023-07-13] VITALS (13 sets, daily range): BP systolic 94–127; BP diastolic 57–81; TEMP 98.1–98.8; O2SAT 94–100
[2023-07-13] MEDS: CEFTRIAXONE 1 G in IV D5W 50 ML IV SCH (00:44)
[2023-07-13] MEDS: AZITHROMYCIN 500 MG in IV D5W 250 ML IV SCH (01:56)
[2023-07-13 06:39] LABS: BASOPHILS # (AUTO) 0.1 K/uL (0.0-0.2); BASOPHILS % (AUTO) 0.7 % (0.0-2.0); EOSINOPHILS # (AUTO) 0.7 K/uL (0.0-0.7); EOSINOPHILS % (AUTO) 8.8 % (0.0-6.0); HEMATOCRIT 28 % (33-45); LYMPHOCYTES # (AUTO) 1.9 K/uL (0.8-4.8); MEAN CORPUSCULAR HEMOGLOBIN 29 PG (26.0-33.0); MEAN CORPUSCULAR HGB CONC 32 g/dl (31.0-36.0); MEAN CORPUSCULAR VOLUME 91 fL (82-100); MONOCYTES # (AUTO) 0.9 K/uL (0.1-1.30); MONOCYTES % (AUTO) 10.9 % (2.0-12.0); NEUTROPHILS # (AUTO) 4.7 K/uL (1.8-8.9); NEUTROPHILS % (AUTO) 56.6 % (43.0-81.0); PLATELET COUNT (AUTO) 233 K/uL (150-450); RED BLOOD CELL COUNT(AUTO) 3.14 MIL/uL (4.0-5.2); RED CELL DISTRIBUTION WIDTH 17.1 % (11.5-15.0); WHITE BLOOD COUNT (AUTO) 8.4 K/uL (4.3-11.0)
[2023-07-13] MEDS: INSULIN REGULAR, HUMAN 100 UNIT/ML 3 ML VIAL SQ PRN ×4 (07:01→21:46)
[2023-07-13] MEDS: BLOOD SUGAR DIAGNOSTIC 1 EACH STRIP IN SCH ×4 (07:01→21:45)
[2023-07-13] MEDS: SEVELAMER CARBONATE 800 MG TABLET PO SCH ×3 (07:47→17:49)
[2023-07-13 07:50] LABS: CALCIUM, SERUM 8.8 mg/dL (8.5-10.1); CREATININE 7.2 mg/dL (0.6-1.3); MAGNESIUM 2.7 mg/dL (1.8-2.4); POTASSIUM 5.2 mmol/L (3.5-5.1)
[2023-07-13] MEDS: AMLODIPINE BESYLATE 2.5 MG TABLET PO SCH (09:00)
[2023-07-13] MEDS: FLUOXETINE HCL 20 MG CAPSULE PO SCH (10:06)
[2023-07-13] MEDS: POLYETHYLENE GLYCOL 3350 17 GM POWD.PACK PO SCH ×2 (10:07→17:49)
[2023-07-13] MEDS: busPIRone 5 MG TABLET PO SCH ×2 (10:07→17:50)
[2023-07-13] MEDS: CHOLECALCIFEROL 1,000 UNIT TABLET (VIT D3) PO SCH (10:08)
[2023-07-13] MEDS: VIT B CMPLX 3/FA/VIT C/BIOTIN 1 TAB TABLET PO SCH (10:08)
[2023-07-13] MEDS: GABAPENTIN 100 MG CAPSULE PO SCH ×2 (10:08→17:49)
[2023-07-13] MEDS: ASPIRIN 325 MG TABLET PO SCH (10:09)
[2023-07-13] MEDS: FLUTICASONE PROPIONATE 16 GM BOTTLE NS SCH ×2 (10:09→17:49)
[2023-07-13] MEDS: SENNOSIDES 8.6 MG TABLET PO SCH ×2 (10:10→17:49)
[2023-07-13] MEDS: ASCORBIC ACID 500 MG TABLET PO SCH (10:11)
[2023-07-13] MEDS: THERAHONEY GEL 1.5 OZ TUBE TP SCH (10:12)
[2023-07-13] MEDS: PROSOURCE / PROSTAT (PYXIS) 30 ML UDC PO SCH ×2 (10:14→17:49)
[2023-07-13] MEDS: HEPARIN SODIUM, PORCINE 5000 UNITS/1 ML VIAL SQ SCH ×2 (10:18→21:23)
[2023-07-13] MEDS: ACETYLCYSTEINE 10% SOLN 400 MG/4 ML VIAL NEB SCH (15:22)
[2023-07-13] MEDS: ALBUTEROL HALF STRENGTH 1.25 MG/3 ML VIAL.NEB NEB SCH ×3 (15:22→20:18)
[2023-07-13] MEDS: IPRATROPIUM NEB FS 0.5 MG/2.5 ML AMPUL.NEB NEB SCH ×2 (15:22→20:18)
[2023-07-13] MEDS: CLOTRIMAZOLE 1% 15 GM TUBE TP SCH (17:49)
[2023-07-13] MEDS: ATORVASTATIN 40 MG TABLET PO SCH (21:23)
[2023-07-13] MEDS: TRAZODONE 50 MG TABLET PO SCH (21:23)
[2023-07-14] VITALS (20 sets, daily range): BP systolic 118–171; BP diastolic 75–85; TEMP 98–98.8; O2SAT 96–100
[2023-07-14] MEDS: ALBUTEROL HALF STRENGTH 1.25 MG/3 ML VIAL.NEB NEB SCH ×7 (00:16→23:43)
[2023-07-14] MEDS: IPRATROPIUM NEB FS 0.5 MG/2.5 ML AMPUL.NEB NEB SCH ×7 (00:16→23:43)
[2023-07-14] MEDS: ACETYLCYSTEINE 10% SOLN 400 MG/4 ML VIAL NEB SCH ×4 (00:16→23:43)
[2023-07-14] MEDS: CEFTRIAXONE 1 G in IV D5W 50 ML IV SCH (00:50)
[2023-07-14] MEDS: AZITHROMYCIN 500 MG in IV D5W 250 ML IV SCH (01:43)
[2023-07-14 06:18] LABS: BASOPHILS # (AUTO) 0.1 K/uL (0.0-0.2); BASOPHILS % (AUTO) 0.7 % (0.0-2.0); EOSINOPHILS # (AUTO) 0.7 K/uL (0.0-0.7); EOSINOPHILS % (AUTO) 8.5 % (0.0-6.0); HEMATOCRIT 31 % (33-45); HEMOGLOBIN 9.4 g/dL (11.5-14.8); LYMPHOCYTES # (AUTO) 1.6 K/uL (0.8-4.8); LYMPHOCYTES % (AUTO) 20.1 % (20.0-44.0); MEAN CORPUSCULAR HEMOGLOBIN 28 PG (26.0-33.0); MEAN CORPUSCULAR HGB CONC 31 g/dl (31.0-36.0); MEAN CORPUSCULAR VOLUME 91 fL (82-100); MONOCYTES # (AUTO) 0.8 K/uL (0.1-1.30); MONOCYTES % (AUTO) 9.6 % (2.0-12.0); NEUTROPHILS # (AUTO) 4.8 K/uL (1.8-8.9); NEUTROPHILS % (AUTO) 61.1 % (43.0-81.0); PLATELET COUNT (AUTO) 227 K/uL (150-450); RED BLOOD CELL COUNT(AUTO) 3.36 MIL/uL (4.0-5.2); RED CELL DISTRIBUTION WIDTH 17.3 % (11.5-15.0); WHITE BLOOD COUNT (AUTO) 7.9 K/uL (4.3-11.0)
[2023-07-14 06:45] LABS: CALCIUM, SERUM 8.8 mg/dL (8.5-10.1); CREATININE 5.4 mg/dL (0.6-1.3); MAGNESIUM 2.6 mg/dL (1.8-2.4); PHOSPHORUS 3.1 mg/dL (2.5-4.9); POTASSIUM 4.7 mmol/L (3.5-5.1)
[2023-07-14] MEDS: INSULIN REGULAR, HUMAN 100 UNIT/ML 3 ML VIAL SQ PRN (07:06)
[2023-07-14] MEDS: BLOOD SUGAR DIAGNOSTIC 1 EACH STRIP IN SCH ×4 (07:06→21:24)
[2023-07-14] MEDS: FLUTICASONE PROPIONATE 16 GM BOTTLE NS SCH ×2 (08:54→16:42)
[2023-07-14] MEDS: SEVELAMER CARBONATE 800 MG TABLET PO SCH ×3 (08:55→17:01)
[2023-07-14] MEDS: ASPIRIN 325 MG TABLET PO SCH (08:55)
[2023-07-14] MEDS: busPIRone 5 MG TABLET PO SCH ×2 (08:55→16:39)
[2023-07-14] MEDS: POLYETHYLENE GLYCOL 3350 17 GM POWD.PACK PO SCH ×2 (08:55→16:39)
[2023-07-14] MEDS: VIT B CMPLX 3/FA/VIT C/BIOTIN 1 TAB TABLET PO SCH (08:55)
[2023-07-14] MEDS: GABAPENTIN 100 MG CAPSULE PO SCH ×2 (08:55→16:39)
[2023-07-14] MEDS: SENNOSIDES 8.6 MG TABLET PO SCH ×2 (08:56→16:39)
[2023-07-14] MEDS: ASCORBIC ACID 500 MG TABLET PO SCH (08:56)
[2023-07-14] MEDS: AMLODIPINE BESYLATE 2.5 MG TABLET PO SCH (08:56)
[2023-07-14] MEDS: PROSOURCE / PROSTAT (PYXIS) 30 ML UDC PO SCH ×2 (08:57→16:39)
[2023-07-14] MEDS: FLUOXETINE HCL 20 MG CAPSULE PO SCH (09:00)
[2023-07-14] MEDS: HEPARIN SODIUM, PORCINE 5000 UNITS/1 ML VIAL SQ SCH ×2 (09:01→21:24)
[2023-07-14] MEDS: CLOTRIMAZOLE 1% 15 GM TUBE TP SCH ×2 (09:49→17:02)
[2023-07-14] MEDS: THERAHONEY GEL 1.5 OZ TUBE TP SCH (09:52)
[2023-07-14] MEDS: CHOLECALCIFEROL 1,000 UNIT TABLET (VIT D3) PO SCH (10:58)
[2023-07-14] MEDS ORDERED: ACET1OOV6 NEB (13:22)
[2023-07-14] MEDS ORDERED: AZIT200S48 PO (13:22)
[2023-07-14] MEDS: TRAZODONE 50 MG TABLET PO SCH (21:25)
[2023-07-14] MEDS: ATORVASTATIN 40 MG TABLET PO SCH (21:25)
[2023-07-15] VITALS (10 sets, daily range): BP systolic 131–135; BP diastolic 69–75; TEMP 97.9–98.2; O2SAT 98–100
[2023-07-15] MEDS: CEFTRIAXONE 1 G in IV D5W 50 ML IV SCH (01:05)
[2023-07-15] MEDS: AZITHROMYCIN 500 MG in IV D5W 250 ML IV SCH (01:44)
[2023-07-15] MEDS: IPRATROPIUM NEB FS 0.5 MG/2.5 ML AMPUL.NEB NEB SCH ×3 (04:17→11:30)
[2023-07-15] MEDS: ALBUTEROL HALF STRENGTH 1.25 MG/3 ML VIAL.NEB NEB SCH ×3 (04:17→11:30)
[2023-07-15] MEDS: BLOOD SUGAR DIAGNOSTIC 1 EACH STRIP IN SCH ×2 (07:37→11:40)
[2023-07-15] MEDS: INSULIN REGULAR, HUMAN 100 UNIT/ML 3 ML VIAL SQ PRN ×2 (07:38→11:40)
[2023-07-15] MEDS: ACETYLCYSTEINE 10% SOLN 400 MG/4 ML VIAL NEB SCH (07:44)
[2023-07-15] MEDS: CHOLECALCIFEROL 1,000 UNIT TABLET (VIT D3) PO SCH (08:44)
[2023-07-15] MEDS: ASPIRIN 325 MG TABLET PO SCH (08:45)
[2023-07-15] MEDS: busPIRone 5 MG TABLET PO SCH (08:45)
[2023-07-15] MEDS: ASCORBIC ACID 500 MG TABLET PO SCH (08:45)
[2023-07-15] MEDS: FLUOXETINE HCL 20 MG CAPSULE PO SCH (08:45)
[2023-07-15] MEDS: SENNOSIDES 8.6 MG TABLET PO SCH (08:45)
[2023-07-15] MEDS: GABAPENTIN 100 MG CAPSULE PO SCH (08:45)
[2023-07-15] MEDS: VIT B CMPLX 3/FA/VIT C/BIOTIN 1 TAB TABLET PO SCH (08:45)
[2023-07-15] MEDS: SEVELAMER CARBONATE 800 MG TABLET PO SCH (08:45)
[2023-07-15] MEDS: HEPARIN SODIUM, PORCINE 5000 UNITS/1 ML VIAL SQ SCH (08:47)
[2023-07-15] MEDS: POLYETHYLENE GLYCOL 3350 17 GM POWD.PACK PO SCH (08:47)
[2023-07-15] MEDS: PROSOURCE / PROSTAT (PYXIS) 30 ML UDC PO SCH (08:48)
[2023-07-15] MEDS: CLOTRIMAZOLE 1% 15 GM TUBE TP SCH (08:48)
[2023-07-15] MEDS: THERAHONEY GEL 1.5 OZ TUBE TP SCH (08:49)
[2023-07-15] MEDS: FLUTICASONE PROPIONATE 16 GM BOTTLE NS SCH (08:49)
[2023-07-15] MEDS: AMLODIPINE BESYLATE 2.5 MG TABLET PO SCH (09:00)
== END 2023-07-15 12:48 | DRG 194 ==
LOC: ER 22:09 → TELE1 23:54
PROVIDERS: ADMIT Nurse Practitioner Acute Care; ATTEND Nurse Practitioner Acute Care
PROC: 5A1D70Z Performance of Urinary Filtration, Intermittent, Less than 6 Hours Per Day (ICD-10-PCS; principal; 2023-07-13)
DX: I13.2 Hypertensive heart and chronic kidney disease with heart failure and with stage 5 chronic kidney disease, or end stage renal disease (principal); J96.01 Acute respiratory failure with hypoxia; N18.6 End stage renal disease; E66.2 Morbid (severe) obesity with alveolar hypoventilation; E87.20 Acidosis, unspecified; D63.1 Anemia in chronic kidney disease; E11.22 Type 2 diabetes mellitus with diabetic chronic kidney disease; I50.33 Acute on chronic diastolic (congestive) heart failure; Z93.0 Tracheostomy status; Z20.822 Contact with and (suspected) exposure to COVID-19; E78.5 Hyperlipidemia, unspecified; R13.10 Dysphagia, unspecified; Z79.82 Long term (current) use of aspirin; E11.65 Type 2 diabetes mellitus with hyperglycemia; Z79.51 Long term (current) use of inhaled steroids; Z79.899 Other long term (current) drug therapy; Z82.49 Family history of ischemic heart disease and other diseases of the circulatory system; Z93.1 Gastrostomy status
CPT/HCPCS: 31720; 36415; 71045-TC; 80048-TC; 80076-TC; 82962-TC; 83605-TC; 83735-TC; 83880; 84100-TC; 84484-TC; 85025-TC; 85730-TC; 87081-TC; 94640-TC; 94799-TC; A6403; C9803; G0378; J0456; J0696; J1644; J1815; J7030; J7040; J7060

== ENCOUNTER 2023-09-04 18:35 | Inpatient (IN) | payer MEDICAID ==
[~2023-09-04] VITALS: Ht 162.6 cm; Wt 136.1 kg
[~2023-09-04 18:35] MED LIST changes: +ACET-2605 PO; +ACET-868 PO; +ACET1OOV6 NEB; +AZIT200S48 PO; +BISA10SU11 RC; +HYDR1SOL MC; +IPRA3AMP23 IH; +MAGN400O6 PO; +MENT113O TP; +NA P133E RC; -POLY17PO4 PO
[2023-09-04 20:15] LABS: BASOPHILS # (AUTO) 0.1 K/uL (0.0-0.2); BASOPHILS % (AUTO) 0.8 % (0.0-2.0); EOSINOPHILS # (AUTO) 0.5 K/uL (0.0-0.7); EOSINOPHILS % (AUTO) 7.8 % (0.0-6.0); HEMATOCRIT 36 % (33-45); HEMOGLOBIN 11.2 g/dL (11.5-14.8); LYMPHOCYTES # (AUTO) 1.3 K/uL (0.8-4.8); LYMPHOCYTES % (AUTO) 18.9 % (20.0-44.0); MEAN CORPUSCULAR HEMOGLOBIN 28 PG (26.0-33.0); MEAN CORPUSCULAR HGB CONC 31 g/dl (31.0-36.0); MEAN CORPUSCULAR VOLUME 91 fL (82-100); MONOCYTES # (AUTO) 0.6 K/uL (0.1-1.30); MONOCYTES % (AUTO) 8.7 % (2.0-12.0); NEUTROPHILS # (AUTO) 4.4 K/uL (1.8-8.9); NEUTROPHILS % (AUTO) 63.8 % (43.0-81.0); PLATELET COUNT (AUTO) 194 K/uL (150-450); RED BLOOD CELL COUNT(AUTO) 3.98 MIL/uL (4.0-5.2); RED CELL DISTRIBUTION WIDTH 16.8 % (11.5-15.0); WHITE BLOOD COUNT (AUTO) 6.8 K/uL (4.3-11.0)
[2023-09-04 20:27] LABS: CALCIUM, SERUM 8.5 mg/dL (8.5-10.1)
[2023-09-04 20:32] LABS: MAGNESIUM 2.7 mg/dL (1.8-2.4); PHOSPHORUS 6.9 mg/dL (2.5-4.9)
[2023-09-04 20:33] LABS: ALBUMIN 3.7 g/dL (3.4-5.0); BILIRUBIN,DIRECT 0.1 mg/dL (0.0-0.2); BILIRUBIN,TOTAL 0.3 mg/dL (0.2-1.0); POTASSIUM 7.7 mmol/L (3.5-5.1); TOTAL PROTEIN, SERUM 8.4 g/dL (6.4-8.2)
[2023-09-04 20:34] LABS: CREATININE 13.4 mg/dL (0.6-1.3)
[2023-09-04 21:05] VITALS: O2SAT 98
[2023-09-04] MEDS: ALBUTEROL FS 2.5 MG/3 ML VIAL.NEB NEB ONE (21:05)
[2023-09-04] MEDS: CALCIUM CHLORIDE 1,000 MG/10 ML DISP.SYRIN IV ONE (21:07)
[2023-09-04] MEDS: DEXTROSE 50%-WATER 50 ML DISP.SYRIN IV ONE (21:08)
[2023-09-04] MEDS: INSULIN REGULAR, HUMAN 100 UNIT/ML 10 ML VIAL IV ONE (21:09)
[2023-09-04 21:15] VITALS: O2SAT 98
[2023-09-04 22:33] VITALS: O2SAT 98
[2023-09-04] MEDS ORDERED: SODIUM POLYSTYRENE SULFONATE 15 G/60 ML BOTTLE ONE (22:58)
[2023-09-04] MEDS: SODIUM POLYSTYRENE SULFONATE 15 G/60 ML BOTTLE PO ONE (23:09)
[2023-09-04] MEDS ORDERED: MAG HYDROX/AL HYDROX/SIMETH 30 ML UDC PO PRN (23:30)
[2023-09-04] MEDS ORDERED: Z GUARD REMEDY 4 OZ OINT TP PRN (23:30)
[2023-09-04] MEDS ORDERED: ONDANSETRON HCL/PF 4 MG/2 ML VIAL IVP PRN (23:30)
[2023-09-04] MEDS ORDERED: ACETAMINOPHEN 325 MG TABLET PO PRN (23:30)
[2023-09-04] MEDS ORDERED: ZOLPIDEM TARTRATE 5 MG TABLET PO PRN (23:30)
[2023-09-04] MEDS ORDERED: DEXTROSE 50%-WATER 50 ML DISP.SYRIN IV PRN (23:30)
[2023-09-05] VITALS (16 sets, daily range): BP systolic 90–143; BP diastolic 60–83; TEMP 97.7–99; O2SAT 96–99
[2023-09-05] MEDS ORDERED: SIMETHICONE 80 MG TAB.CHEW PO PRN (00:30)
[2023-09-05] MEDS ORDERED: ZNOX TP SCH (00:30)
[2023-09-05] MEDS ORDERED: LANOLIN TP SCH (00:30)
[2023-09-05] MEDS ORDERED: GUAIFENESIN 300 MG/15 ML UDC PO PRN (00:30)
[2023-09-05] MEDS ORDERED: BISACODYL SUPP (10 MG) 10 MG/SUPP.RECT SUPP.RECT RC PRN (00:30)
[2023-09-05] MEDS ORDERED: MENTHOL TP SCH (00:30)
[2023-09-05] MEDS ORDERED: MAGNESIUM HYDROXIDE 30 ML UDC PO PRN (00:30)
[2023-09-05] MEDS ORDERED: CALAMINE TP SCH (00:30)
[2023-09-05] MEDS ORDERED: [UNRECOGNIZED DRUG - OTHER] TP SCH (00:30)
[2023-09-05] MEDS ORDERED: PHENOL-PHENOLATE CHLORASEPTIC 177 ML SPRAY MM PRN (01:00)
[2023-09-05] MEDS ORDERED: ONDANSETRON 4 MG TAB.RAPDIS PO PRN (01:00)
[2023-09-05] MEDS: ALBUTEROL FS 2.5 MG/3 ML VIAL.NEB NEB SCH (02:04)
[2023-09-05] MEDS: IPRATROPIUM NEB FS 0.5 MG/2.5 ML AMPUL.NEB NEB SCH (02:04)
[2023-09-05] MEDS ORDERED: Medication Not On Formulary EA (Ipratropium/Albuterol Sulfate (Duoneb 2.5-0.5 Mg/3 Ml So IH SCH (06:00)
[2023-09-05 06:33] LABS: BASOPHILS % (AUTO) 0.7 % (0.0-2.0); EOSINOPHILS # (AUTO) 0.4 K/uL (0.0-0.7); EOSINOPHILS % (AUTO) 7.1 % (0.0-6.0); HEMATOCRIT 38 % (33-45); HEMOGLOBIN 12.2 g/dL (11.5-14.8); LYMPHOCYTES % (AUTO) 18.9 % (20.0-44.0); MEAN CORPUSCULAR HEMOGLOBIN 29 PG (26.0-33.0); MEAN CORPUSCULAR HGB CONC 32 g/dl (31.0-36.0); MEAN CORPUSCULAR VOLUME 89 fL (82-100); MONOCYTES # (AUTO) 0.5 K/uL (0.1-1.30); MONOCYTES % (AUTO) 9.6 % (2.0-12.0); NEUTROPHILS # (AUTO) 3.4 K/uL (1.8-8.9); NEUTROPHILS % (AUTO) 63.7 % (43.0-81.0); PLATELET COUNT (AUTO) 183 K/uL (150-450); RED BLOOD CELL COUNT(AUTO) 4.26 MIL/uL (4.0-5.2); RED CELL DISTRIBUTION WIDTH 16.3 % (11.5-15.0); WHITE BLOOD COUNT (AUTO) 5.4 K/uL (4.3-11.0)
[2023-09-05 06:49] LABS: CALCIUM, SERUM 8.5 mg/dL (8.5-10.1); MAGNESIUM 2.3 mg/dL (1.8-2.4); PHOSPHORUS 3.7 mg/dL (2.5-4.9)
[2023-09-05 06:51] LABS: CREATININE 7.8 mg/dL (0.6-1.3)
[2023-09-05] MEDS: ACETYLCYSTEINE 10% SOLN 400 MG/4 ML VIAL NEB SCH (07:35)
[2023-09-05] MEDS: PANTOPRAZOLE 40 MG TABLET.DR PO SCH (07:40)
[2023-09-05] MEDS: SEVELAMER CARBONATE 800 MG TABLET PO SCH (07:40)
[2023-09-05] MEDS: BLOOD SUGAR DIAGNOSTIC 1 EACH STRIP VI SCH (08:28)
[2023-09-05] MEDS: INSULIN REGULAR, HUMAN 100 UNIT/ML 3 ML VIAL SQ PRN (08:29)
[2023-09-05] MEDS: CHOLECALCIFEROL 1,000 UNIT TABLET (VIT D3) PO SCH (08:43)
[2023-09-05] MEDS: SENNOSIDES 8.6 MG TABLET PO SCH (08:44)
[2023-09-05] MEDS: ZINC SULFATE 220 MG CAPSULE PO SCH (08:44)
[2023-09-05] MEDS: busPIRone 5 MG TABLET PO SCH (08:44)
[2023-09-05] MEDS: GABAPENTIN 100 MG CAPSULE PO SCH (08:44)
[2023-09-05] MEDS: VIT B CMPLX 3/FA/VIT C/BIOTIN 1 TAB TABLET PO SCH (08:44)
[2023-09-05] MEDS: cetrizine 10 MG TABLET PO SCH (08:44)
[2023-09-05] MEDS: FLUOXETINE HCL 20 MG CAPSULE PO SCH (08:44)
[2023-09-05] MEDS: ASPIRIN 325 MG TABLET PO SCH (08:45)
[2023-09-05] MEDS: AMLODIPINE BESYLATE 2.5 MG TABLET PO SCH (08:45)
[2023-09-05] MEDS: ASCORBIC ACID 500 MG TABLET PO SCH (08:45)
[2023-09-05] MEDS: FLUTICASONE PROPIONATE 16 GM BOTTLE NS SCH (08:46)
[2023-09-05] MEDS: PROSOURCE / PROSTAT (PYXIS) 30 ML UDC PO SCH (08:47)
[2023-09-05] MEDS: NALOXONE SL SCH (09:00)
[2023-09-05] MEDS ORDERED: HYDROGEN PEROXIDE MC SCH (09:00)
[2023-09-05] MEDS: BUPRENORPHINE SL SCH (09:00)
[2023-09-05] MEDS ORDERED: AZITHROMYCIN 250 MG TABLET PO SCH (10:05)
[2023-09-05] MEDS: MAGNESIUM HYDROXIDE 30 ML UDC PO PRN (10:56)
[2023-09-05] MEDS: ACETAMINOPHEN 325 MG TABLET PO PRN (12:29)
[2023-09-05] MEDS ORDERED: CINA30TA2 PO (13:29)
[2023-09-05] MEDS ORDERED: GEL100GE TP (13:29)
[2023-09-05] MEDS ORDERED: NYST15PO4 TP (13:29)
[2023-09-05] MEDS ORDERED: AMLO2.5T4 PO (13:29)
[2023-09-05] MEDS: TRAZODONE 50 MG TABLET PO SCH (21:34)
[2023-09-05] MEDS: ATORVASTATIN 40 MG TABLET PO SCH (21:34)
[2023-09-06] VITALS (16 sets, daily range): BP systolic 94–120; BP diastolic 53–72; TEMP 98.4–99.5; O2SAT 90–100
[2023-09-06 06:52] LABS: BASOPHILS % (AUTO) 0.6 % (0.0-2.0); EOSINOPHILS # (AUTO) 0.3 K/uL (0.0-0.7); EOSINOPHILS % (AUTO) 5.4 % (0.0-6.0); HEMATOCRIT 35 % (33-45); HEMOGLOBIN 11.2 g/dL (11.5-14.8); LYMPHOCYTES # (AUTO) 1.5 K/uL (0.8-4.8); LYMPHOCYTES % (AUTO) 23.1 % (20.0-44.0); MEAN CORPUSCULAR HEMOGLOBIN 29 PG (26.0-33.0); MEAN CORPUSCULAR HGB CONC 32 g/dl (31.0-36.0); MEAN CORPUSCULAR VOLUME 90 fL (82-100); MONOCYTES # (AUTO) 0.7 K/uL (0.1-1.30); MONOCYTES % (AUTO) 10.8 % (2.0-12.0); NEUTROPHILS # (AUTO) 3.9 K/uL (1.8-8.9); NEUTROPHILS % (AUTO) 60.1 % (43.0-81.0); PLATELET COUNT (AUTO) 172 K/uL (150-450); RED BLOOD CELL COUNT(AUTO) 3.89 MIL/uL (4.0-5.2); RED CELL DISTRIBUTION WIDTH 16.6 % (11.5-15.0); WHITE BLOOD COUNT (AUTO) 6.4 K/uL (4.3-11.0)
[2023-09-06] MEDS ORDERED: MAG HYDROX/AL HYDROX/SIMETH 30 ML UDC PO PRN (07:00)
[2023-09-06 07:21] LABS: ALBUMIN 3.3 g/dL (3.4-5.0); BILIRUBIN,TOTAL 0.4 mg/dL (0.2-1.0); CALCIUM, SERUM 8.7 mg/dL (8.5-10.1); MAGNESIUM 2.3 mg/dL (1.8-2.4); PHOSPHORUS 5.2 mg/dL (2.5-4.9); POTASSIUM 4.9 mmol/L (3.5-5.1); TOTAL PROTEIN, SERUM 7.6 g/dL (6.4-8.2)
[2023-09-06 07:23] LABS: CREATININE 9.1 mg/dL (0.6-1.3)
[2023-09-06] MEDS: DOCUSATE SODIUM 100 MG CAPSULE PO SCH (12:59)
[2023-09-06] MEDS ORDERED: SENNOSIDES 8.6 MG TABLET PO PRN (13:00)
[2023-09-06] MEDS: ACETAMINOPHEN ES 500 MG TABLET PO PRN (13:56)
[2023-09-06] MEDS: NA PHOS,M-B/NA PHOS,DI-BA 1 EA ENEMA RC PRN (17:08)
[2023-09-06] MEDS: *INSULIN REGULAR(HUMULIN R)HUM 100 UNIT/ML VIAL SQ PRN (17:09)
[2023-09-07] VITALS (19 sets, daily range): BP systolic 93–122; BP diastolic 53–107; TEMP 97.8–99.2; O2SAT 94–100
[2023-09-07 12:12] LABS: BASOPHILS % (AUTO) 0.7 % (0.0-2.0); EOSINOPHILS # (AUTO) 0.5 K/uL (0.0-0.7); EOSINOPHILS % (AUTO) 6.9 % (0.0-6.0); HEMATOCRIT 34 % (33-45); HEMOGLOBIN 10.6 g/dL (11.5-14.8); LYMPHOCYTES # (AUTO) 1.5 K/uL (0.8-4.8); LYMPHOCYTES % (AUTO) 22.2 % (20.0-44.0); MEAN CORPUSCULAR HEMOGLOBIN 29 PG (26.0-33.0); MEAN CORPUSCULAR HGB CONC 32 g/dl (31.0-36.0); MEAN CORPUSCULAR VOLUME 91 fL (82-100); MONOCYTES % (AUTO) 15.1 % (2.0-12.0); NEUTROPHILS # (AUTO) 3.6 K/uL (1.8-8.9); NEUTROPHILS % (AUTO) 55.1 % (43.0-81.0); PLATELET COUNT (AUTO) 174 K/uL (150-450); RED CELL DISTRIBUTION WIDTH 16.1 % (11.5-15.0); WHITE BLOOD COUNT (AUTO) 6.6 K/uL (4.3-11.0)
[2023-09-07 12:25] LABS: CALCIUM, SERUM 8.4 mg/dL (8.5-10.1); MAGNESIUM 2.2 mg/dL (1.8-2.4); POTASSIUM 4.3 mmol/L (3.5-5.1)
[2023-09-07 12:33] LABS: CREATININE 7.9 mg/dL (0.6-1.3)
[2023-09-08] VITALS (18 sets, daily range): BP systolic 95–132; BP diastolic 52–76; TEMP 97.9–98.8; O2SAT 96–100
[2023-09-08 07:49] LABS: BASOPHILS # (AUTO) 0.1 K/uL (0.0-0.2); EOSINOPHILS # (AUTO) 0.5 K/uL (0.0-0.7); EOSINOPHILS % (AUTO) 7.1 % (0.0-6.0); HEMATOCRIT 34 % (33-45); HEMOGLOBIN 10.6 g/dL (11.5-14.8); LYMPHOCYTES # (AUTO) 1.9 K/uL (0.8-4.8); LYMPHOCYTES % (AUTO) 26.5 % (20.0-44.0); MEAN CORPUSCULAR HEMOGLOBIN 28 PG (26.0-33.0); MEAN CORPUSCULAR HGB CONC 32 g/dl (31.0-36.0); MEAN CORPUSCULAR VOLUME 90 fL (82-100); MONOCYTES # (AUTO) 0.7 K/uL (0.1-1.30); MONOCYTES % (AUTO) 10.2 % (2.0-12.0); NEUTROPHILS % (AUTO) 55.2 % (43.0-81.0); PLATELET COUNT (AUTO) 185 K/uL (150-450); RED BLOOD CELL COUNT(AUTO) 3.73 MIL/uL (4.0-5.2); WHITE BLOOD COUNT (AUTO) 7.2 K/uL (4.3-11.0)
[2023-09-08 08:10] LABS: CALCIUM, SERUM 8.5 mg/dL (8.5-10.1); MAGNESIUM 2.4 mg/dL (1.8-2.4); PHOSPHORUS 5.9 mg/dL (2.5-4.9); POTASSIUM 5.2 mmol/L (3.5-5.1)
[2023-09-08 08:14] LABS: CREATININE 9.5 mg/dL (0.6-1.3)
[2023-09-08] MEDS: CLOTRIMAZOLE 1% 15 GM TUBE TP SCH (09:43)
[2023-09-08] MEDS: Medication Not On Formulary EA (Patiromer Calcium Sorbitex (Veltassa) 8.4 GM) PO SCH (10:49)
[2023-09-08] MEDS: KEY,NONCONTROL,TO KEEP IN PYXI 1 EA MC ONE (22:00)
[2023-09-09] VITALS (16 sets, daily range): BP systolic 88–119; BP diastolic 41–68; TEMP 97.7–99; O2SAT 95–100
[2023-09-09] MEDS: MIDODRINE HCL (5MG) 5 MG TABLET PO PRN (09:19)
[2023-09-09] MEDS: KEY,NONCONTROL,TO KEEP IN PYXI 1 EA MC ONE ×2 (09:35→17:31)
[2023-09-09 09:57] LABS: BASOPHILS # (AUTO) 0.1 K/uL (0.0-0.2); BASOPHILS % (AUTO) 0.8 % (0.0-2.0); EOSINOPHILS # (AUTO) 0.4 K/uL (0.0-0.7); EOSINOPHILS % (AUTO) 6.2 % (0.0-6.0); HEMATOCRIT 32 % (33-45); LYMPHOCYTES # (AUTO) 1.2 K/uL (0.8-4.8); LYMPHOCYTES % (AUTO) 19.3 % (20.0-44.0); MEAN CORPUSCULAR HEMOGLOBIN 29 PG (26.0-33.0); MEAN CORPUSCULAR HGB CONC 31 g/dl (31.0-36.0); MEAN CORPUSCULAR VOLUME 91 fL (82-100); MONOCYTES # (AUTO) 0.6 K/uL (0.1-1.30); MONOCYTES % (AUTO) 8.7 % (2.0-12.0); NEUTROPHILS # (AUTO) 4.1 K/uL (1.8-8.9); PLATELET COUNT (AUTO) 179 K/uL (150-450); RED BLOOD CELL COUNT(AUTO) 3.49 MIL/uL (4.0-5.2); RED CELL DISTRIBUTION WIDTH 16.2 % (11.5-15.0); WHITE BLOOD COUNT (AUTO) 6.4 K/uL (4.3-11.0)
[2023-09-09 10:08] LABS: ALBUMIN 2.8 g/dL (3.4-5.0); BILIRUBIN,TOTAL 0.2 mg/dL (0.2-1.0); CALCIUM, SERUM 8.2 mg/dL (8.5-10.1); CREATININE 6.2 mg/dL (0.6-1.3); POTASSIUM 4.2 mmol/L (3.5-5.1)
[2023-09-09 12:11] LABS: HEPATITIS B CORE AB, IgM Negative (Negative); HEPATITIS B CORE AB, TOTAL Negative (Negative); HEPATITIS B SURFACE AB Reactive (.)
[2023-09-10] VITALS (18 sets, daily range): BP systolic 102–139; BP diastolic 57–77; TEMP 97.9–98.9; O2SAT 95–100
[2023-09-10] MEDS: KEY,NONCONTROL,TO KEEP IN PYXI 1 EA MC ONE ×2 (11:56→17:20)
[2023-09-11] VITALS (21 sets, daily range): BP systolic 101–130; BP diastolic 56–76; TEMP 97.8–98.5; O2SAT 95–100
[2023-09-11] MEDS: KEY,NONCONTROL,TO KEEP IN PYXI 1 EA MC ONE ×2 (08:50→14:01)
[2023-09-11 10:47] LABS: CALCIUM, SERUM 8.9 mg/dL (8.5-10.1); CREATININE 6.3 mg/dL (0.6-1.3); POTASSIUM 3.9 mmol/L (3.5-5.1)
[2023-09-11 10:53] LABS: ALBUMIN 3.2 g/dL (3.4-5.0); BILIRUBIN,TOTAL 0.3 mg/dL (0.2-1.0); TOTAL PROTEIN, SERUM 7.4 g/dL (6.4-8.2)
[2023-09-11 10:54] LABS: BASOPHILS % (AUTO) 0.8 % (0.0-2.0); EOSINOPHILS # (AUTO) 0.5 K/uL (0.0-0.7); EOSINOPHILS % (AUTO) 7.1 % (0.0-6.0); HEMATOCRIT 31 % (33-45); HEMOGLOBIN 10.1 g/dL (11.5-14.8); LYMPHOCYTES # (AUTO) 1.3 K/uL (0.8-4.8); LYMPHOCYTES % (AUTO) 20.7 % (20.0-44.0); MEAN CORPUSCULAR HEMOGLOBIN 29 PG (26.0-33.0); MEAN CORPUSCULAR HGB CONC 32 g/dl (31.0-36.0); MEAN CORPUSCULAR VOLUME 89 fL (82-100); MONOCYTES # (AUTO) 0.7 K/uL (0.1-1.30); MONOCYTES % (AUTO) 10.1 % (2.0-12.0); NEUTROPHILS % (AUTO) 61.3 % (43.0-81.0); PLATELET COUNT (AUTO) 194 K/uL (150-450); RED BLOOD CELL COUNT(AUTO) 3.52 MIL/uL (4.0-5.2); RED CELL DISTRIBUTION WIDTH 15.4 % (11.5-15.0); WHITE BLOOD COUNT (AUTO) 6.5 K/uL (4.3-11.0)
[2023-09-12] VITALS (17 sets, daily range): BP systolic 115–132; BP diastolic 61–86; TEMP 97.6–98.4; O2SAT 87–99
[2023-09-12 06:18] LABS: BASOPHILS % (AUTO) 0.6 % (0.0-2.0); EOSINOPHILS # (AUTO) 0.5 K/uL (0.0-0.7); EOSINOPHILS % (AUTO) 7.1 % (0.0-6.0); HEMATOCRIT 31 % (33-45); HEMOGLOBIN 9.9 g/dL (11.5-14.8); LYMPHOCYTES # (AUTO) 1.6 K/uL (0.8-4.8); MEAN CORPUSCULAR HEMOGLOBIN 29 PG (26.0-33.0); MEAN CORPUSCULAR HGB CONC 32 g/dl (31.0-36.0); MEAN CORPUSCULAR VOLUME 89 fL (82-100); MONOCYTES # (AUTO) 0.7 K/uL (0.1-1.30); MONOCYTES % (AUTO) 10.2 % (2.0-12.0); NEUTROPHILS # (AUTO) 3.8 K/uL (1.8-8.9); NEUTROPHILS % (AUTO) 58.1 % (43.0-81.0); PLATELET COUNT (AUTO) 203 K/uL (150-450); RED BLOOD CELL COUNT(AUTO) 3.46 MIL/uL (4.0-5.2); RED CELL DISTRIBUTION WIDTH 15.6 % (11.5-15.0); WHITE BLOOD COUNT (AUTO) 6.5 K/uL (4.3-11.0)
[2023-09-12 07:14] LABS: ALBUMIN 3.1 g/dL (3.4-5.0); BILIRUBIN,TOTAL 0.3 mg/dL (0.2-1.0); CALCIUM, SERUM 8.9 mg/dL (8.5-10.1); CREATININE 7.3 mg/dL (0.6-1.3); POTASSIUM 4.5 mmol/L (3.5-5.1); TOTAL PROTEIN, SERUM 7.2 g/dL (6.4-8.2)
[2023-09-12] MEDS: OXYMETAZOLINE HCL NASAL SPRAY 30 ML BOTTLE NS PRN (08:29)
[2023-09-12] MEDS: MENTHOL/CETYLPYRD (CEPACOL) 1 LOZ LOZENGE MM PRN (08:34)
[2023-09-12] MEDS: KEY,NONCONTROL,TO KEEP IN PYXI 1 EA MC ONE ×2 (08:50→17:42)
[2023-09-13] VITALS (18 sets, daily range): BP systolic 106–151; BP diastolic 61–95; TEMP 98.1–98.8; O2SAT 94–100
[2023-09-13 07:23] LABS: BASOPHILS % (AUTO) 0.7 % (0.0-2.0); EOSINOPHILS # (AUTO) 0.4 K/uL (0.0-0.7); EOSINOPHILS % (AUTO) 6.6 % (0.0-6.0); HEMATOCRIT 29 % (33-45); HEMOGLOBIN 9.5 g/dL (11.5-14.8); LYMPHOCYTES # (AUTO) 1.6 K/uL (0.8-4.8); LYMPHOCYTES % (AUTO) 24.3 % (20.0-44.0); MEAN CORPUSCULAR HEMOGLOBIN 29 PG (26.0-33.0); MEAN CORPUSCULAR HGB CONC 32 g/dl (31.0-36.0); MEAN CORPUSCULAR VOLUME 90 fL (82-100); MONOCYTES # (AUTO) 0.7 K/uL (0.1-1.30); MONOCYTES % (AUTO) 10.3 % (2.0-12.0); NEUTROPHILS # (AUTO) 3.9 K/uL (1.8-8.9); NEUTROPHILS % (AUTO) 58.1 % (43.0-81.0); PLATELET COUNT (AUTO) 208 K/uL (150-450); RED BLOOD CELL COUNT(AUTO) 3.24 MIL/uL (4.0-5.2); RED CELL DISTRIBUTION WIDTH 15.6 % (11.5-15.0); WHITE BLOOD COUNT (AUTO) 6.8 K/uL (4.3-11.0)
[2023-09-13 08:20] LABS: ALBUMIN 3.1 g/dL (3.4-5.0); BILIRUBIN,TOTAL 0.3 mg/dL (0.2-1.0); CALCIUM, SERUM 8.6 mg/dL (8.5-10.1); CREATININE 5.6 mg/dL (0.6-1.3); POTASSIUM 4.4 mmol/L (3.5-5.1); TOTAL PROTEIN, SERUM 7.2 g/dL (6.4-8.2)
[2023-09-13] MEDS: KEY,NONCONTROL,TO KEEP IN PYXI 1 EA MC ONE ×4 (09:41→17:54)
[2023-09-14] VITALS (16 sets, daily range): BP systolic 103–150; BP diastolic 54–110; TEMP 97.7–98.6; O2SAT 93–100
[2023-09-14 07:41] LABS: BASOPHILS # (AUTO) 0.1 K/uL (0.0-0.2); BASOPHILS % (AUTO) 0.8 % (0.0-2.0); EOSINOPHILS # (AUTO) 0.4 K/uL (0.0-0.7); EOSINOPHILS % (AUTO) 6.3 % (0.0-6.0); HEMATOCRIT 32 % (33-45); HEMOGLOBIN 10.3 g/dL (11.5-14.8); LYMPHOCYTES # (AUTO) 1.8 K/uL (0.8-4.8); LYMPHOCYTES % (AUTO) 26.5 % (20.0-44.0); MEAN CORPUSCULAR HEMOGLOBIN 29 PG (26.0-33.0); MEAN CORPUSCULAR HGB CONC 32 g/dl (31.0-36.0); MEAN CORPUSCULAR VOLUME 92 fL (82-100); MONOCYTES # (AUTO) 0.6 K/uL (0.1-1.30); MONOCYTES % (AUTO) 9.6 % (2.0-12.0); NEUTROPHILS # (AUTO) 3.8 K/uL (1.8-8.9); NEUTROPHILS % (AUTO) 56.8 % (43.0-81.0); PLATELET COUNT (AUTO) 213 K/uL (150-450); RED BLOOD CELL COUNT(AUTO) 3.52 MIL/uL (4.0-5.2); RED CELL DISTRIBUTION WIDTH 15.5 % (11.5-15.0); WHITE BLOOD COUNT (AUTO) 6.7 K/uL (4.3-11.0)
[2023-09-14 08:19] LABS: ALBUMIN 3.3 g/dL (3.4-5.0); BILIRUBIN,TOTAL 0.3 mg/dL (0.2-1.0); CALCIUM, SERUM 9.2 mg/dL (8.5-10.1); CREATININE 6.9 mg/dL (0.6-1.3); POTASSIUM 5.2 mmol/L (3.5-5.1); TOTAL PROTEIN, SERUM 7.6 g/dL (6.4-8.2)
[2023-09-14] MEDS: KEY,NONCONTROL,TO KEEP IN PYXI 1 EA MC ONE ×2 (09:18→17:56)
[2023-09-15] VITALS (16 sets, daily range): BP systolic 111–124; BP diastolic 60–90; TEMP 98–98.8; O2SAT 94–100
[2023-09-15] MEDS: KEY,NONCONTROL,TO KEEP IN PYXI 1 EA MC ONE ×2 (09:18→16:26)
[2023-09-16] VITALS (16 sets, daily range): BP systolic 91–126; BP diastolic 42–74; TEMP 98.1–98.6; O2SAT 96–100
[2023-09-16 07:41] LABS: BASOPHILS # (AUTO) 0.1 K/uL (0.0-0.2); BASOPHILS % (AUTO) 0.8 % (0.0-2.0); EOSINOPHILS # (AUTO) 0.4 K/uL (0.0-0.7); EOSINOPHILS % (AUTO) 6.7 % (0.0-6.0); HEMATOCRIT 31 % (33-45); HEMOGLOBIN 9.8 g/dL (11.5-14.8); LYMPHOCYTES # (AUTO) 1.4 K/uL (0.8-4.8); LYMPHOCYTES % (AUTO) 21.1 % (20.0-44.0); MEAN CORPUSCULAR HEMOGLOBIN 29 PG (26.0-33.0); MEAN CORPUSCULAR HGB CONC 32 g/dl (31.0-36.0); MEAN CORPUSCULAR VOLUME 90 fL (82-100); MONOCYTES # (AUTO) 0.7 K/uL (0.1-1.30); NEUTROPHILS # (AUTO) 3.9 K/uL (1.8-8.9); NEUTROPHILS % (AUTO) 60.4 % (43.0-81.0); PLATELET COUNT (AUTO) 209 K/uL (150-450); RED BLOOD CELL COUNT(AUTO) 3.45 MIL/uL (4.0-5.2); RED CELL DISTRIBUTION WIDTH 15.1 % (11.5-15.0); WHITE BLOOD COUNT (AUTO) 6.4 K/uL (4.3-11.0)
[2023-09-16 07:50] LABS: CALCIUM, SERUM 8.9 mg/dL (8.5-10.1); MAGNESIUM 2.3 mg/dL (1.8-2.4); PHOSPHORUS 4.5 mg/dL (2.5-4.9); POTASSIUM 5.4 mmol/L (3.5-5.1)
[2023-09-16 07:52] LABS: CREATININE 7.5 mg/dL (0.6-1.3)
[2023-09-16] MEDS: KEY,NONCONTROL,TO KEEP IN PYXI 1 EA MC ONE ×2 (10:17→17:34)
[2023-09-17] VITALS (15 sets, daily range): BP systolic 106–131; BP diastolic 59–92; TEMP 97.6–98.6; O2SAT 95–100
[2023-09-17 06:55] LABS: BASOPHILS % (AUTO) 0.6 % (0.0-2.0); EOSINOPHILS # (AUTO) 0.3 K/uL (0.0-0.7); EOSINOPHILS % (AUTO) 5.4 % (0.0-6.0); HEMATOCRIT 30 % (33-45); HEMOGLOBIN 9.4 g/dL (11.5-14.8); LYMPHOCYTES # (AUTO) 1.1 K/uL (0.8-4.8); LYMPHOCYTES % (AUTO) 17.4 % (20.0-44.0); MEAN CORPUSCULAR HEMOGLOBIN 29 PG (26.0-33.0); MEAN CORPUSCULAR HGB CONC 32 g/dl (31.0-36.0); MEAN CORPUSCULAR VOLUME 91 fL (82-100); MONOCYTES # (AUTO) 0.6 K/uL (0.1-1.30); MONOCYTES % (AUTO) 9.6 % (2.0-12.0); NEUTROPHILS # (AUTO) 4.4 K/uL (1.8-8.9); PLATELET COUNT (AUTO) 190 K/uL (150-450); RED BLOOD CELL COUNT(AUTO) 3.29 MIL/uL (4.0-5.2); RED CELL DISTRIBUTION WIDTH 15.2 % (11.5-15.0); WHITE BLOOD COUNT (AUTO) 6.5 K/uL (4.3-11.0)
[2023-09-17 09:33] LABS: ALBUMIN 3.1 g/dL (3.4-5.0); BILIRUBIN,TOTAL 0.3 mg/dL (0.2-1.0); CREATININE 5.4 mg/dL (0.6-1.3); POTASSIUM 4.5 mmol/L (3.5-5.1); TOTAL PROTEIN, SERUM 7.3 g/dL (6.4-8.2)
[2023-09-17] MEDS: LIDOCAINE 5% (PATCH) 1 EA PATCH TP PRN (10:28)
[2023-09-17] MEDS: CALCIUM CARBONATE 500 MG TAB.CHEW PO PRN (10:31)
[2023-09-17] MEDS: KEY,NONCONTROL,TO KEEP IN PYXI 1 EA MC ONE ×2 (10:35→17:53)
[2023-09-18] VITALS (17 sets, daily range): BP systolic 102–125; BP diastolic 58–85; TEMP 97.9–98.6; O2SAT 95–100
[2023-09-18 07:09] LABS: BASOPHILS % (AUTO) 0.6 % (0.0-2.0); EOSINOPHILS # (AUTO) 0.4 K/uL (0.0-0.7); HEMATOCRIT 31 % (33-45); LYMPHOCYTES # (AUTO) 1.6 K/uL (0.8-4.8); LYMPHOCYTES % (AUTO) 23.9 % (20.0-44.0); MEAN CORPUSCULAR HEMOGLOBIN 29 PG (26.0-33.0); MEAN CORPUSCULAR HGB CONC 32 g/dl (31.0-36.0); MEAN CORPUSCULAR VOLUME 90 fL (82-100); MONOCYTES # (AUTO) 0.7 K/uL (0.1-1.30); MONOCYTES % (AUTO) 10.1 % (2.0-12.0); NEUTROPHILS % (AUTO) 59.4 % (43.0-81.0); PLATELET COUNT (AUTO) 200 K/uL (150-450); RED BLOOD CELL COUNT(AUTO) 3.46 MIL/uL (4.0-5.2); RED CELL DISTRIBUTION WIDTH 15.1 % (11.5-15.0); WHITE BLOOD COUNT (AUTO) 6.7 K/uL (4.3-11.0)
[2023-09-18 07:25] LABS: ALBUMIN 3.3 g/dL (3.4-5.0); BILIRUBIN,TOTAL 0.3 mg/dL (0.2-1.0); CALCIUM, SERUM 9.2 mg/dL (8.5-10.1); CREATININE 6.9 mg/dL (0.6-1.3); POTASSIUM 5.1 mmol/L (3.5-5.1); TOTAL PROTEIN, SERUM 7.7 g/dL (6.4-8.2)
[2023-09-18] MEDS: KEY,NONCONTROL,TO KEEP IN PYXI 1 EA MC ONE (22:00)
[2023-09-19] VITALS (16 sets, daily range): BP systolic 99–122; BP diastolic 49–78; TEMP 98.2–98.9; O2SAT 94–100
[2023-09-19 07:57] LABS: BASOPHILS # (AUTO) 0.1 K/uL (0.0-0.2); BASOPHILS % (AUTO) 0.8 % (0.0-2.0); EOSINOPHILS # (AUTO) 0.4 K/uL (0.0-0.7); EOSINOPHILS % (AUTO) 6.3 % (0.0-6.0); HEMATOCRIT 29 % (33-45); HEMOGLOBIN 9.1 g/dL (11.5-14.8); LYMPHOCYTES # (AUTO) 1.5 K/uL (0.8-4.8); LYMPHOCYTES % (AUTO) 23.3 % (20.0-44.0); MEAN CORPUSCULAR HEMOGLOBIN 28 PG (26.0-33.0); MEAN CORPUSCULAR HGB CONC 31 g/dl (31.0-36.0); MEAN CORPUSCULAR VOLUME 91 fL (82-100); MONOCYTES # (AUTO) 0.7 K/uL (0.1-1.30); MONOCYTES % (AUTO) 11.3 % (2.0-12.0); NEUTROPHILS # (AUTO) 3.7 K/uL (1.8-8.9); NEUTROPHILS % (AUTO) 58.3 % (43.0-81.0); PLATELET COUNT (AUTO) 181 K/uL (150-450); WHITE BLOOD COUNT (AUTO) 6.3 K/uL (4.3-11.0)
[2023-09-19 08:32] LABS: ALBUMIN 2.9 g/dL (3.4-5.0); BILIRUBIN,TOTAL 0.3 mg/dL (0.2-1.0); CALCIUM, SERUM 8.8 mg/dL (8.5-10.1); CREATININE 6.1 mg/dL (0.6-1.3); POTASSIUM 4.5 mmol/L (3.5-5.1); TOTAL PROTEIN, SERUM 7.1 g/dL (6.4-8.2)
[2023-09-19] MEDS: POLYETHYLENE GLYCOL 3350 17 GM POWD.PACK PO PRN (14:03)
[2023-09-20] VITALS (16 sets, daily range): BP systolic 101–139; BP diastolic 60–84; TEMP 98.1–98.8; O2SAT 97–100
[2023-09-20] MEDS: KEY,NONCONTROL,TO KEEP IN PYXI 1 EA MC ONE ×2 (09:36→17:01)
[2023-09-20 13:32] LABS: CALCIUM, SERUM 8.5 mg/dL (8.5-10.1); CREATININE 4.3 mg/dL (0.6-1.3); POTASSIUM 3.8 mmol/L (3.5-5.1)
[2023-09-20 13:36] LABS: ALBUMIN 2.9 g/dL (3.4-5.0); BILIRUBIN,TOTAL 0.2 mg/dL (0.2-1.0)
[2023-09-21] VITALS (14 sets, daily range): BP systolic 98–130; BP diastolic 40–97; TEMP 97.9–98.4; O2SAT 96–100
[2023-09-21] MEDS: KEY,NONCONTROL,TO KEEP IN PYXI 1 EA MC ONE ×4 (10:02→17:16)
[2023-09-21 14:47] LABS: BASOPHILS # (AUTO) 0.1 K/uL (0.0-0.2); BASOPHILS % (AUTO) 0.8 % (0.0-2.0); EOSINOPHILS # (AUTO) 0.5 K/uL (0.0-0.7); EOSINOPHILS % (AUTO) 6.5 % (0.0-6.0); HEMATOCRIT 29 % (33-45); HEMOGLOBIN 9.2 g/dL (11.5-14.8); LYMPHOCYTES # (AUTO) 1.4 K/uL (0.8-4.8); LYMPHOCYTES % (AUTO) 19.7 % (20.0-44.0); MEAN CORPUSCULAR HEMOGLOBIN 29 PG (26.0-33.0); MEAN CORPUSCULAR HGB CONC 32 g/dl (31.0-36.0); MEAN CORPUSCULAR VOLUME 90 fL (82-100); MONOCYTES # (AUTO) 0.7 K/uL (0.1-1.30); MONOCYTES % (AUTO) 9.8 % (2.0-12.0); NEUTROPHILS # (AUTO) 4.5 K/uL (1.8-8.9); NEUTROPHILS % (AUTO) 63.2 % (43.0-81.0); PLATELET COUNT (AUTO) 200 K/uL (150-450); RED BLOOD CELL COUNT(AUTO) 3.21 MIL/uL (4.0-5.2); RED CELL DISTRIBUTION WIDTH 15.4 % (11.5-15.0); WHITE BLOOD COUNT (AUTO) 7.1 K/uL (4.3-11.0)
[2023-09-21 15:15] LABS: ALBUMIN 3.1 g/dL (3.4-5.0); BILIRUBIN,TOTAL 0.2 mg/dL (0.2-1.0); CALCIUM, SERUM 8.7 mg/dL (8.5-10.1); CREATININE 6.2 mg/dL (0.6-1.3); POTASSIUM 4.7 mmol/L (3.5-5.1); TOTAL PROTEIN, SERUM 7.2 g/dL (6.4-8.2)
[2023-09-22] VITALS (19 sets, daily range): BP systolic 99–138; BP diastolic 51–90; TEMP 97.8–99; O2SAT 98–100
[2023-09-22 08:05] LABS: BASOPHILS % (AUTO) 0.7 % (0.0-2.0); EOSINOPHILS # (AUTO) 0.4 K/uL (0.0-0.7); EOSINOPHILS % (AUTO) 5.4 % (0.0-6.0); HEMATOCRIT 26 % (33-45); HEMOGLOBIN 8.5 g/dL (11.5-14.8); LYMPHOCYTES # (AUTO) 1.4 K/uL (0.8-4.8); LYMPHOCYTES % (AUTO) 20.8 % (20.0-44.0); MEAN CORPUSCULAR HEMOGLOBIN 29 PG (26.0-33.0); MEAN CORPUSCULAR HGB CONC 32 g/dl (31.0-36.0); MEAN CORPUSCULAR VOLUME 90 fL (82-100); MONOCYTES # (AUTO) 0.7 K/uL (0.1-1.30); MONOCYTES % (AUTO) 10.4 % (2.0-12.0); NEUTROPHILS # (AUTO) 4.1 K/uL (1.8-8.9); NEUTROPHILS % (AUTO) 62.7 % (43.0-81.0); PLATELET COUNT (AUTO) 183 K/uL (150-450); RED BLOOD CELL COUNT(AUTO) 2.95 MIL/uL (4.0-5.2); WHITE BLOOD COUNT (AUTO) 6.6 K/uL (4.3-11.0)
[2023-09-22 08:22] LABS: BILIRUBIN,TOTAL 0.2 mg/dL (0.2-1.0); CALCIUM, SERUM 8.8 mg/dL (8.5-10.1); CREATININE 7.2 mg/dL (0.6-1.3); POTASSIUM 5.4 mmol/L (3.5-5.1); TOTAL PROTEIN, SERUM 6.9 g/dL (6.4-8.2)
[2023-09-22] MEDS: KEY,NONCONTROL,TO KEEP IN PYXI 1 EA MC ONE ×2 (09:58→17:57)
[2023-09-22] MEDS ORDERED: NA PHOS,M-B/NA PHOS,DI-BA 1 EA ENEMA RC PRN (13:30)
[2023-09-22] MEDS ORDERED: FAT EMULSION 20% 500 ML in PREMIX 1 EA IV SCH (14:00)
[2023-09-23] VITALS (15 sets, daily range): BP systolic 98–138; BP diastolic 51–71; TEMP 98.1–98.4; O2SAT 97–100
[2023-09-23 08:10] LABS: ALBUMIN 3.1 g/dL (3.4-5.0); BILIRUBIN,TOTAL 0.2 mg/dL (0.2-1.0); CALCIUM, SERUM 8.8 mg/dL (8.5-10.1); CREATININE 7.3 mg/dL (0.6-1.3); POTASSIUM 5.2 mmol/L (3.5-5.1); TOTAL PROTEIN, SERUM 7.1 g/dL (6.4-8.2)
[2023-09-23 08:12] LABS: BASOPHILS % (AUTO) 0.8 % (0.0-2.0); EOSINOPHILS # (AUTO) 0.4 K/uL (0.0-0.7); EOSINOPHILS % (AUTO) 6.1 % (0.0-6.0); HEMATOCRIT 27 % (33-45); HEMOGLOBIN 8.6 g/dL (11.5-14.8); LYMPHOCYTES # (AUTO) 1.3 K/uL (0.8-4.8); LYMPHOCYTES % (AUTO) 20.8 % (20.0-44.0); MEAN CORPUSCULAR HEMOGLOBIN 29 PG (26.0-33.0); MEAN CORPUSCULAR HGB CONC 32 g/dl (31.0-36.0); MEAN CORPUSCULAR VOLUME 90 fL (82-100); MONOCYTES # (AUTO) 0.6 K/uL (0.1-1.30); MONOCYTES % (AUTO) 10.5 % (2.0-12.0); NEUTROPHILS # (AUTO) 3.8 K/uL (1.8-8.9); NEUTROPHILS % (AUTO) 61.8 % (43.0-81.0); PLATELET COUNT (AUTO) 174 K/uL (150-450); RED BLOOD CELL COUNT(AUTO) 3.01 MIL/uL (4.0-5.2); RED CELL DISTRIBUTION WIDTH 14.9 % (11.5-15.0); WHITE BLOOD COUNT (AUTO) 6.2 K/uL (4.3-11.0)
[2023-09-23] MEDS: KEY,NONCONTROL,TO KEEP IN PYXI 1 EA MC ONE ×2 (08:34→17:09)
[2023-09-24] VITALS (15 sets, daily range): BP systolic 101–106; BP diastolic 51–57; TEMP 97.7–98.8; O2SAT 94–100
[2023-09-24] MEDS: ALBUMIN 25% 25 GM in PREMIX 1 EA IV PRN (05:38)
[2023-09-24 07:12] LABS: BASOPHILS % (AUTO) 0.9 % (0.0-2.0); EOSINOPHILS # (AUTO) 0.2 K/uL (0.0-0.7); EOSINOPHILS % (AUTO) 5.6 % (0.0-6.0); HEMATOCRIT 25 % (33-45); LYMPHOCYTES # (AUTO) 1.1 K/uL (0.8-4.8); LYMPHOCYTES % (AUTO) 26.7 % (20.0-44.0); MEAN CORPUSCULAR HEMOGLOBIN 29 PG (26.0-33.0); MEAN CORPUSCULAR HGB CONC 32 g/dl (31.0-36.0); MEAN CORPUSCULAR VOLUME 91 fL (82-100); MONOCYTES # (AUTO) 0.3 K/uL (0.1-1.30); MONOCYTES % (AUTO) 6.3 % (2.0-12.0); NEUTROPHILS # (AUTO) 2.5 K/uL (1.8-8.9); NEUTROPHILS % (AUTO) 60.5 % (43.0-81.0); PLATELET COUNT (AUTO) 162 K/uL (150-450); RED BLOOD CELL COUNT(AUTO) 2.74 MIL/uL (4.0-5.2); WHITE BLOOD COUNT (AUTO) 4.1 K/uL (4.3-11.0)
[2023-09-24 09:00] LABS: ALBUMIN 3.3 g/dL (3.4-5.0); BILIRUBIN,TOTAL 0.2 mg/dL (0.2-1.0); CALCIUM, SERUM 8.7 mg/dL (8.5-10.1); CREATININE 6.8 mg/dL (0.6-1.3); POTASSIUM 4.5 mmol/L (3.5-5.1); TOTAL PROTEIN, SERUM 6.9 g/dL (6.4-8.2)
[2023-09-24] MEDS: KEY,NONCONTROL,TO KEEP IN PYXI 1 EA MC ONE ×2 (09:39→16:50)
[2023-09-25] VITALS (17 sets, daily range): BP systolic 99–130; BP diastolic 60–74; TEMP 97.6–98.8; O2SAT 95–100
[2023-09-25 07:02] LABS: BASOPHILS # (AUTO) 0.1 K/uL (0.0-0.2); EOSINOPHILS # (AUTO) 0.4 K/uL (0.0-0.7); EOSINOPHILS % (AUTO) 5.9 % (0.0-6.0); HEMATOCRIT 26 % (33-45); HEMOGLOBIN 8.3 g/dL (11.5-14.8); LYMPHOCYTES # (AUTO) 1.1 K/uL (0.8-4.8); LYMPHOCYTES % (AUTO) 16.7 % (20.0-44.0); MEAN CORPUSCULAR HEMOGLOBIN 30 PG (26.0-33.0); MEAN CORPUSCULAR HGB CONC 32 g/dl (31.0-36.0); MEAN CORPUSCULAR VOLUME 92 fL (82-100); MONOCYTES # (AUTO) 0.7 K/uL (0.1-1.30); MONOCYTES % (AUTO) 10.6 % (2.0-12.0); NEUTROPHILS # (AUTO) 4.2 K/uL (1.8-8.9); NEUTROPHILS % (AUTO) 65.8 % (43.0-81.0); PLATELET COUNT (AUTO) 178 K/uL (150-450); RED BLOOD CELL COUNT(AUTO) 2.82 MIL/uL (4.0-5.2); RED CELL DISTRIBUTION WIDTH 15.5 % (11.5-15.0); WHITE BLOOD COUNT (AUTO) 6.5 K/uL (4.3-11.0)
[2023-09-25 07:32] LABS: ALBUMIN 3.2 g/dL (3.4-5.0); BILIRUBIN,TOTAL 0.3 mg/dL (0.2-1.0); CALCIUM, SERUM 8.9 mg/dL (8.5-10.1); POTASSIUM 5.6 mmol/L (3.5-5.1)
[2023-09-25 07:37] LABS: CREATININE 8.5 mg/dL (0.6-1.3)
[2023-09-26] VITALS (17 sets, daily range): BP systolic 83–132; BP diastolic 45–81; TEMP 97.9–98.3; O2SAT 95–100
[2023-09-26] MEDS: KEY,NONCONTROL,TO KEEP IN PYXI 1 EA MC ONE ×2 (09:27→17:03)
[2023-09-27] VITALS (15 sets, daily range): BP systolic 90–145; BP diastolic 53–88; TEMP 97.9–99; O2SAT 95–100
[2023-09-28] VITALS (13 sets, daily range): BP systolic 111–125; BP diastolic 60–79; TEMP 97.9–98.8; O2SAT 95–100
[2023-09-29] VITALS (15 sets, daily range): BP systolic 97–152; BP diastolic 55–85; TEMP 98.2–98.4; O2SAT 98–100
[2023-09-29] MEDS: KEY,NONCONTROL,TO KEEP IN PYXI 1 EA MC ONE ×2 (09:24→17:14)
[2023-09-30] VITALS (18 sets, daily range): BP systolic 114–135; BP diastolic 61–70; TEMP 98.2–98.7; O2SAT 93–100
[2023-09-30 07:15] LABS: BASOPHILS # (AUTO) 0.1 K/uL (0.0-0.2); BASOPHILS % (AUTO) 0.8 % (0.0-2.0); EOSINOPHILS # (AUTO) 0.5 K/uL (0.0-0.7); EOSINOPHILS % (AUTO) 7.2 % (0.0-6.0); HEMATOCRIT 26 % (33-45); HEMOGLOBIN 8.3 g/dL (11.5-14.8); LYMPHOCYTES # (AUTO) 1.3 K/uL (0.8-4.8); LYMPHOCYTES % (AUTO) 19.5 % (20.0-44.0); MEAN CORPUSCULAR HEMOGLOBIN 29 PG (26.0-33.0); MEAN CORPUSCULAR HGB CONC 32 g/dl (31.0-36.0); MEAN CORPUSCULAR VOLUME 90 fL (82-100); MONOCYTES # (AUTO) 0.8 K/uL (0.1-1.30); MONOCYTES % (AUTO) 11.7 % (2.0-12.0); NEUTROPHILS # (AUTO) 4.1 K/uL (1.8-8.9); NEUTROPHILS % (AUTO) 60.8 % (43.0-81.0); PLATELET COUNT (AUTO) 189 K/uL (150-450); RED BLOOD CELL COUNT(AUTO) 2.86 MIL/uL (4.0-5.2); RED CELL DISTRIBUTION WIDTH 15.2 % (11.5-15.0); WHITE BLOOD COUNT (AUTO) 6.7 K/uL (4.3-11.0)
[2023-09-30 07:37] LABS: CALCIUM, SERUM 9.1 mg/dL (8.5-10.1); POTASSIUM 5.7 mmol/L (3.5-5.1)
[2023-09-30 10:29] LABS: CREATININE 8.7 mg/dL (0.6-1.3)
[2023-10-01] VITALS (15 sets, daily range): BP systolic 108–152; BP diastolic 62–82; TEMP 97.9–98.8; O2SAT 95–100
[2023-10-01 07:35] LABS: CALCIUM, SERUM 8.8 mg/dL (8.5-10.1); POTASSIUM 5.6 mmol/L (3.5-5.1)
[2023-10-01 07:39] LABS: CREATININE 9.4 mg/dL (0.6-1.3)
[2023-10-02] VITALS (15 sets, daily range): BP systolic 110–145; BP diastolic 61–77; TEMP 97.7–98.8; O2SAT 94–100
[2023-10-02 07:21] LABS: CALCIUM, SERUM 8.5 mg/dL (8.5-10.1); CREATININE 6.7 mg/dL (0.6-1.3); POTASSIUM 4.3 mmol/L (3.5-5.1)
[2023-10-03] VITALS (18 sets, daily range): BP systolic 87–153; BP diastolic 42–89; TEMP 98.4–98.8; O2SAT 97–100
[2023-10-03 16:58] LABS: ALBUMIN 3.5 g/dL (3.4-5.0); BILIRUBIN,TOTAL 0.2 mg/dL (0.2-1.0); CALCIUM, SERUM 8.6 mg/dL (8.5-10.1); CREATININE 5.6 mg/dL (0.6-1.3); POTASSIUM 4.2 mmol/L (3.5-5.1); TOTAL PROTEIN, SERUM 7.1 g/dL (6.4-8.2)
[2023-10-04] VITALS (14 sets, daily range): BP systolic 130–157; BP diastolic 55–89; TEMP 97.7–98.8; O2SAT 92–100
[2023-10-04 08:05] LABS: BASOPHILS % (AUTO) 0.9 % (0.0-2.0); EOSINOPHILS # (AUTO) 0.5 K/uL (0.0-0.7); EOSINOPHILS % (AUTO) 8.6 % (0.0-6.0); HEMATOCRIT 25 % (33-45); HEMOGLOBIN 7.9 g/dL (11.5-14.8); LYMPHOCYTES % (AUTO) 18.4 % (20.0-44.0); MEAN CORPUSCULAR HEMOGLOBIN 29 PG (26.0-33.0); MEAN CORPUSCULAR HGB CONC 32 g/dl (31.0-36.0); MEAN CORPUSCULAR VOLUME 92 fL (82-100); MONOCYTES # (AUTO) 0.6 K/uL (0.1-1.30); MONOCYTES % (AUTO) 10.8 % (2.0-12.0); NEUTROPHILS # (AUTO) 3.4 K/uL (1.8-8.9); NEUTROPHILS % (AUTO) 61.3 % (43.0-81.0); PLATELET COUNT (AUTO) 155 K/uL (150-450); RED BLOOD CELL COUNT(AUTO) 2.73 MIL/uL (4.0-5.2); RED CELL DISTRIBUTION WIDTH 14.9 % (11.5-15.0); WHITE BLOOD COUNT (AUTO) 5.6 K/uL (4.3-11.0)
[2023-10-04 08:18] LABS: ALBUMIN 3.4 g/dL (3.4-5.0); BILIRUBIN,TOTAL 0.2 mg/dL (0.2-1.0); CALCIUM, SERUM 8.8 mg/dL (8.5-10.1); CREATININE 6.7 mg/dL (0.6-1.3); POTASSIUM 4.8 mmol/L (3.5-5.1); TOTAL PROTEIN, SERUM 7.2 g/dL (6.4-8.2)
[2023-10-04] MEDS: SENNOSIDES 8.6 MG TABLET PO PRN (13:24)
[2023-10-05] VITALS (15 sets, daily range): BP systolic 133–152; BP diastolic 56–83; TEMP 98.1–98.5; O2SAT 97–100
[2023-10-05 07:19] LABS: BASOPHILS # (AUTO) 0.1 K/uL (0.0-0.2); EOSINOPHILS # (AUTO) 0.6 K/uL (0.0-0.7); EOSINOPHILS % (AUTO) 8.5 % (0.0-6.0); HEMATOCRIT 24 % (33-45); HEMOGLOBIN 7.7 g/dL (11.5-14.8); LYMPHOCYTES # (AUTO) 1.4 K/uL (0.8-4.8); LYMPHOCYTES % (AUTO) 21.1 % (20.0-44.0); MEAN CORPUSCULAR HEMOGLOBIN 29 PG (26.0-33.0); MEAN CORPUSCULAR HGB CONC 32 g/dl (31.0-36.0); MEAN CORPUSCULAR VOLUME 91 fL (82-100); MONOCYTES # (AUTO) 0.7 K/uL (0.1-1.30); NEUTROPHILS # (AUTO) 3.8 K/uL (1.8-8.9); NEUTROPHILS % (AUTO) 58.4 % (43.0-81.0); PLATELET COUNT (AUTO) 160 K/uL (150-450); RED BLOOD CELL COUNT(AUTO) 2.66 MIL/uL (4.0-5.2); RED CELL DISTRIBUTION WIDTH 14.9 % (11.5-15.0); WHITE BLOOD COUNT (AUTO) 6.5 K/uL (4.3-11.0)
[2023-10-05 07:26] LABS: ALBUMIN 3.4 g/dL (3.4-5.0); BILIRUBIN,TOTAL 0.3 mg/dL (0.2-1.0); CALCIUM, SERUM 8.8 mg/dL (8.5-10.1); POTASSIUM 4.7 mmol/L (3.5-5.1)
[2023-10-05 07:44] LABS: CREATININE 7.8 mg/dL (0.6-1.3)
[2023-10-05] MEDS: CLOTRIMAZOLE 1% 15 GM TUBE TP SCH (11:37)
[2023-10-05] MEDS: hydrOXYzine PAMOATE 25 MG CAPSULE PO PRN (16:16)
[2023-10-06] VITALS (16 sets, daily range): BP systolic 113–151; BP diastolic 48–76; TEMP 98–98.6; O2SAT 96–100
[2023-10-06 06:52] LABS: BASOPHILS % (AUTO) 0.7 % (0.0-2.0); EOSINOPHILS # (AUTO) 0.4 K/uL (0.0-0.7); EOSINOPHILS % (AUTO) 7.9 % (0.0-6.0); HEMATOCRIT 25 % (33-45); HEMOGLOBIN 8.3 g/dL (11.5-14.8); LYMPHOCYTES # (AUTO) 1.1 K/uL (0.8-4.8); LYMPHOCYTES % (AUTO) 19.5 % (20.0-44.0); MEAN CORPUSCULAR HEMOGLOBIN 30 PG (26.0-33.0); MEAN CORPUSCULAR HGB CONC 33 g/dl (31.0-36.0); MEAN CORPUSCULAR VOLUME 91 fL (82-100); MONOCYTES # (AUTO) 0.7 K/uL (0.1-1.30); MONOCYTES % (AUTO) 12.1 % (2.0-12.0); NEUTROPHILS # (AUTO) 3.4 K/uL (1.8-8.9); NEUTROPHILS % (AUTO) 59.8 % (43.0-81.0); PLATELET COUNT (AUTO) 132 K/uL (150-450); RED CELL DISTRIBUTION WIDTH 15.3 % (11.5-15.0); WHITE BLOOD COUNT (AUTO) 5.7 K/uL (4.3-11.0)
[2023-10-06 07:16] LABS: ALANINE AMINOTRANSFERASE < 6 U/L (12-78); ALBUMIN 3.4 g/dL (3.4-5.0); ALKALINE PHOSPHATASE 121 U/L (46-116); ASPARTATE AMINOTRANSFERASE 10 U/L (15-37); BILIRUBIN,TOTAL 0.2 mg/dL (0.2-1.0); CALCIUM, SERUM 8.7 mg/dL (8.5-10.1); CARBON DIOXIDE 29 mmol/L (21-32); CHLORIDE 101 mmol/L (98-107); CREATININE 6.4 mg/dL (0.6-1.3); GLUCOSE 90 mg/dL (74-106); POTASSIUM 4.4 mmol/L (3.5-5.1); SODIUM SERUM 137 mmol/L (136-145); TOTAL PROTEIN, SERUM 7.1 g/dL (6.4-8.2); UREA NITROGEN, BLOOD 50 mg/dL (7-18)
[2023-10-06] MEDS: KEY,NONCONTROL,TO KEEP IN PYXI 1 EA MC ONE ×2 (08:55→16:26)
[2023-10-07] VITALS (17 sets, daily range): BP systolic 126–136; BP diastolic 62–99; TEMP 96.6–98.4; O2SAT 98–100
[2023-10-07] MEDS: KEY,NONCONTROL,TO KEEP IN PYXI 1 EA MC ONE ×2 (08:56→16:47)
[2023-10-07] MEDS ORDERED: IV NS 0.9% 250 ML IV PRN (18:00)
[2023-10-07] MEDS: MIDODRINE HCL (5MG) 5 MG TABLET PO PRN (19:30)
[2023-10-08] VITALS (14 sets, daily range): BP systolic 121–142; BP diastolic 61–80; TEMP 98.3–99; O2SAT 98–100
[2023-10-08] MEDS ORDERED: MUPIROCIN OINT 2% 22 GM TUBE ONE (00:06)
[2023-10-08] MEDS: MUPIROCIN OINT 2% 22 GM TUBE NS SCH (00:12)
[2023-10-09] VITALS (16 sets, daily range): BP systolic 99–135; BP diastolic 56–88; TEMP 97.9–99.3; O2SAT 97–100
[2023-10-10] VITALS (16 sets, daily range): BP systolic 120–148; BP diastolic 58–72; TEMP 97.6–98.8; O2SAT 96–100
[2023-10-11] VITALS (17 sets, daily range): BP systolic 130–135; BP diastolic 60–70; TEMP 98.2–98.6; O2SAT 97–100
[2023-10-12] VITALS (15 sets, daily range): BP systolic 100–140; BP diastolic 54–64; TEMP 97.9–99; O2SAT 97–100
[2023-10-12] MEDS: KEY,NONCONTROL,TO KEEP IN PYXI 1 EA MC ONE ×2 (08:31→17:41)
[2023-10-12 09:02] LABS: BASOPHILS % (AUTO) 0.4 % (0.0-2.0); EOSINOPHILS # (AUTO) 0.5 K/uL (0.0-0.7); EOSINOPHILS % (AUTO) 8.3 % (0.0-6.0); HEMATOCRIT 23 % (33-45); HEMOGLOBIN 7.4 g/dL (11.5-14.8); LYMPHOCYTES # (AUTO) 1.3 K/uL (0.8-4.8); LYMPHOCYTES % (AUTO) 19.7 % (20.0-44.0); MEAN CORPUSCULAR HEMOGLOBIN 29 PG (26.0-33.0); MEAN CORPUSCULAR HGB CONC 32 g/dl (31.0-36.0); MEAN CORPUSCULAR VOLUME 91 fL (82-100); MONOCYTES # (AUTO) 0.6 K/uL (0.1-1.30); MONOCYTES % (AUTO) 9.6 % (2.0-12.0); PLATELET COUNT (AUTO) 148 K/uL (150-450); RED BLOOD CELL COUNT(AUTO) 2.56 MIL/uL (4.0-5.2); RED CELL DISTRIBUTION WIDTH 14.4 % (11.5-15.0); WHITE BLOOD COUNT (AUTO) 6.5 K/uL (4.3-11.0)
[2023-10-12 09:37] LABS: ALBUMIN 3.5 g/dL (3.4-5.0); BILIRUBIN,TOTAL 0.3 mg/dL (0.2-1.0); CALCIUM, SERUM 8.7 mg/dL (8.5-10.1); CREATININE 5.9 mg/dL (0.6-1.3); MAGNESIUM 2.1 mg/dL (1.8-2.4); PHOSPHORUS 4.2 mg/dL (2.5-4.9); POTASSIUM 4.4 mmol/L (3.5-5.1); TOTAL PROTEIN, SERUM 7.4 g/dL (6.4-8.2)
[2023-10-12] MEDS: SENNOSIDES/DOCUSATE SODIUM 1 TAB TABLET PO SCH (12:47)
[2023-10-13] VITALS (16 sets, daily range): BP systolic 110–152; BP diastolic 56–64; TEMP 97.9–99.5; O2SAT 97–100
[2023-10-13] MEDS: EPOETIN ALFA-EPBX 4,000 UNIT/ML VIAL SQ ONE ×2 (06:00→11:13)
[2023-10-13] MEDS: KEY,NONCONTROL,TO KEEP IN PYXI 1 EA MC ONE (18:55)
[2023-10-14] VITALS (15 sets, daily range): BP systolic 113–160; BP diastolic 57–81; TEMP 98.4–100.8; O2SAT 97–100
[2023-10-14] MEDS: ALBUTEROL FS 2.5 MG/3 ML VIAL.NEB IH PRN (23:23)
[2023-10-15] VITALS (17 sets, daily range): BP systolic 105–153; BP diastolic 52–82; TEMP 97.6–100; O2SAT 94–100
[2023-10-15 11:35] LABS: BASOPHILS % (AUTO) 0.3 % (0.0-2.0); EOSINOPHILS # (AUTO) 0.2 K/uL (0.0-0.7); EOSINOPHILS % (AUTO) 2.6 % (0.0-6.0); HEMATOCRIT 22 % (33-45); HEMOGLOBIN 7.1 g/dL (11.5-14.8); LYMPHOCYTES # (AUTO) 0.9 K/uL (0.8-4.8); MEAN CORPUSCULAR HEMOGLOBIN 30 PG (26.0-33.0); MEAN CORPUSCULAR HGB CONC 33 g/dl (31.0-36.0); MEAN CORPUSCULAR VOLUME 90 fL (82-100); MONOCYTES # (AUTO) 0.9 K/uL (0.1-1.30); MONOCYTES % (AUTO) 11.6 % (2.0-12.0); NEUTROPHILS # (AUTO) 5.7 K/uL (1.8-8.9); NEUTROPHILS % (AUTO) 73.5 % (43.0-81.0); PLATELET COUNT (AUTO) 151 K/uL (150-450); RED BLOOD CELL COUNT(AUTO) 2.39 MIL/uL (4.0-5.2); RED CELL DISTRIBUTION WIDTH 14.7 % (11.5-15.0); WHITE BLOOD COUNT (AUTO) 7.8 K/uL (4.3-11.0)
[2023-10-15 11:45] LABS: CALCIUM, SERUM 8.7 mg/dL (8.5-10.1); POTASSIUM 3.7 mmol/L (3.5-5.1)
[2023-10-15 11:51] LABS: CREATININE 7.6 mg/dL (0.6-1.3)
[2023-10-15 11:52] LABS: PHOSPHORUS 2.9 mg/dL (2.5-4.9)
[2023-10-16] VITALS (16 sets, daily range): BP systolic 112–136; BP diastolic 58–65; TEMP 98.7–99.3; O2SAT 95–100
[2023-10-16] MEDS: KEY,NONCONTROL,TO KEEP IN PYXI 1 EA MC ONE (09:23)
[2023-10-17] VITALS (16 sets, daily range): BP systolic 119–152; BP diastolic 62–82; TEMP 98–98.4; O2SAT 96–100
[2023-10-17] MEDS: KEY,NONCONTROL,TO KEEP IN PYXI 1 EA MC ONE ×2 (09:15→16:20)
[2023-10-18] VITALS (15 sets, daily range): BP systolic 124–153; BP diastolic 64–83; TEMP 97.7–98.4; O2SAT 96–100
[2023-10-18] MEDS: KEY,NONCONTROL,TO KEEP IN PYXI 1 EA MC ONE ×30 (07:23→07:32)
[2023-10-19] VITALS (13 sets, daily range): BP systolic 131–160; BP diastolic 67–83; TEMP 98.2–98.6; O2SAT 98–100
[2023-10-20] VITALS (15 sets, daily range): BP systolic 123–138; BP diastolic 65–83; TEMP 97.3–98.8; O2SAT 97–99
[2023-10-20 12:03] LABS: CALCIUM, SERUM 9.2 mg/dL (8.5-10.1); CREATININE 7.2 mg/dL (0.6-1.3); POTASSIUM 4.6 mmol/L (3.5-5.1)
[2023-10-21] VITALS (16 sets, daily range): BP systolic 140–161; BP diastolic 69–81; TEMP 98.4–99; O2SAT 96–99
[2023-10-21] MEDS: BUPRENORPHINE HCL 2 MG TAB.SUBL SL SCH (16:39)
[2023-10-22] VITALS (14 sets, daily range): BP systolic 110–150; BP diastolic 55–97; TEMP 98–98.2; O2SAT 97–99
[2023-10-22] MEDS: KEY,NONCONTROL,TO KEEP IN PYXI 1 EA MC ONE (10:27)
[2023-10-23] VITALS (15 sets, daily range): BP systolic 117–126; BP diastolic 64–71; TEMP 97.7–98.2; O2SAT 97–100
[2023-10-23] MEDS ORDERED: LACTULOSE 10 G/15 ML UDC (PYXIS) PO PRN (14:30)
[2023-10-24] VITALS (14 sets, daily range): BP systolic 118–131; BP diastolic 54–65; TEMP 98.2–98.4; O2SAT 94–100
[2023-10-24 07:52] LABS: BASOPHILS # (AUTO) 0.1 K/uL (0.0-0.2); BASOPHILS % (AUTO) 0.7 % (0.0-2.0); EOSINOPHILS # (AUTO) 0.6 K/uL (0.0-0.7); EOSINOPHILS % (AUTO) 7.2 % (0.0-6.0); HEMATOCRIT 22 % (33-45); HEMOGLOBIN 7.3 g/dL (11.5-14.8); LYMPHOCYTES # (AUTO) 1.8 K/uL (0.8-4.8); LYMPHOCYTES % (AUTO) 22.4 % (20.0-44.0); MEAN CORPUSCULAR HEMOGLOBIN 29 PG (26.0-33.0); MEAN CORPUSCULAR HGB CONC 33 g/dl (31.0-36.0); MEAN CORPUSCULAR VOLUME 90 fL (82-100); MONOCYTES # (AUTO) 0.9 K/uL (0.1-1.30); MONOCYTES % (AUTO) 11.1 % (2.0-12.0); NEUTROPHILS # (AUTO) 4.7 K/uL (1.8-8.9); NEUTROPHILS % (AUTO) 58.6 % (43.0-81.0); PLATELET COUNT (AUTO) 231 K/uL (150-450); RED BLOOD CELL COUNT(AUTO) 2.48 MIL/uL (4.0-5.2); RED CELL DISTRIBUTION WIDTH 14.7 % (11.5-15.0); WHITE BLOOD COUNT (AUTO) 8.1 K/uL (4.3-11.0)
[2023-10-24 09:23] LABS: CALCIUM, SERUM 8.4 mg/dL (8.5-10.1); CREATININE 7.4 mg/dL (0.6-1.3); PHOSPHORUS 4.5 mg/dL (2.5-4.9); POTASSIUM 4.4 mmol/L (3.5-5.1)
[2023-10-24] MEDS: VELTASSA 8.4 GM PO SCH (10:51)
[2023-10-25] VITALS (14 sets, daily range): BP systolic 113–126; BP diastolic 52–64; TEMP 97.7–98.3; O2SAT 98–100
[2023-10-25 10:54] LABS: CALCIUM, SERUM 8.7 mg/dL (8.5-10.1); CREATININE 6.4 mg/dL (0.6-1.3); POTASSIUM 3.8 mmol/L (3.5-5.1)
[2023-10-25 11:19] LABS: BASOPHILS % (AUTO) 0.6 % (0.0-2.0); EOSINOPHILS # (AUTO) 0.5 K/uL (0.0-0.7); EOSINOPHILS % (AUTO) 7.3 % (0.0-6.0); HEMATOCRIT 22 % (33-45); HEMOGLOBIN 7.1 g/dL (11.5-14.8); LYMPHOCYTES # (AUTO) 1.3 K/uL (0.8-4.8); LYMPHOCYTES % (AUTO) 18.6 % (20.0-44.0); MEAN CORPUSCULAR HEMOGLOBIN 30 PG (26.0-33.0); MEAN CORPUSCULAR HGB CONC 33 g/dl (31.0-36.0); MEAN CORPUSCULAR VOLUME 90 fL (82-100); MONOCYTES # (AUTO) 0.8 K/uL (0.1-1.30); MONOCYTES % (AUTO) 11.2 % (2.0-12.0); NEUTROPHILS # (AUTO) 4.5 K/uL (1.8-8.9); NEUTROPHILS % (AUTO) 62.3 % (43.0-81.0); PLATELET COUNT (AUTO) 218 K/uL (150-450); RED BLOOD CELL COUNT(AUTO) 2.42 MIL/uL (4.0-5.2); RED CELL DISTRIBUTION WIDTH 14.7 % (11.5-15.0); WHITE BLOOD COUNT (AUTO) 7.2 K/uL (4.3-11.0)
[2023-10-25 11:25] LABS: ALBUMIN 3.7 g/dL (3.4-5.0); BILIRUBIN,TOTAL 0.2 mg/dL (0.2-1.0); PHOSPHORUS 3.8 mg/dL (2.5-4.9); TOTAL PROTEIN, SERUM 7.7 g/dL (6.4-8.2)
[2023-10-25] MEDS: NA PHOS,M-B/NA PHOS,DI-BA 1 EA ENEMA RC PRN (14:23)
[2023-10-26] VITALS (14 sets, daily range): BP systolic 104–128; BP diastolic 54–69; TEMP 97.5–98.6; O2SAT 98–100
[2023-10-26] MEDS: EPOETIN ALFA-EPBX 4,000 UNIT/ML VIAL SQ SCH (14:14)
[2023-10-27] VITALS (14 sets, daily range): BP systolic 128–135; BP diastolic 57–72; TEMP 97.5–98.8; O2SAT 97–100
[2023-10-28] VITALS (13 sets, daily range): BP systolic 116–153; BP diastolic 60–68; TEMP 97.3–98.6; O2SAT 94–100
[2023-10-28 11:46] LABS: BASOPHILS # (AUTO) 0.1 K/uL (0.0-0.2); BASOPHILS % (AUTO) 0.7 % (0.0-2.0); EOSINOPHILS # (AUTO) 0.5 K/uL (0.0-0.7); EOSINOPHILS % (AUTO) 6.6 % (0.0-6.0); HEMATOCRIT 22 % (33-45); LYMPHOCYTES # (AUTO) 1.6 K/uL (0.8-4.8); LYMPHOCYTES % (AUTO) 20.7 % (20.0-44.0); MEAN CORPUSCULAR HEMOGLOBIN 29 PG (26.0-33.0); MEAN CORPUSCULAR HGB CONC 33 g/dl (31.0-36.0); MEAN CORPUSCULAR VOLUME 90 fL (82-100); MONOCYTES % (AUTO) 12.8 % (2.0-12.0); NEUTROPHILS # (AUTO) 4.6 K/uL (1.8-8.9); NEUTROPHILS % (AUTO) 59.2 % (43.0-81.0); PLATELET COUNT (AUTO) 230 K/uL (150-450); RED BLOOD CELL COUNT(AUTO) 2.39 MIL/uL (4.0-5.2); RED CELL DISTRIBUTION WIDTH 14.6 % (11.5-15.0); WHITE BLOOD COUNT (AUTO) 7.7 K/uL (4.3-11.0)
[2023-10-28] MEDS: SOD FERRIC GLUC 125 MG in IV NS 0.9% 100 ML IV SCH (16:05)
[2023-10-29] VITALS (22 sets, daily range): BP systolic 102–120; BP diastolic 52–86; TEMP 98–98.6; O2SAT 96–100
[2023-10-29] MEDS: MORPHINE SULFATE INJ 2 MG/ML DISP.SYRIN IV PRN (02:24)
[2023-10-29] MEDS: Z GUARD REMEDY 4 OZ OINT TP PRN (09:09)
[2023-10-29 11:31] LABS: BASOPHILS # (AUTO) 0.1 K/uL (0.0-0.2); BASOPHILS % (AUTO) 0.9 % (0.0-2.0); EOSINOPHILS # (AUTO) 0.5 K/uL (0.0-0.7); EOSINOPHILS % (AUTO) 7.1 % (0.0-6.0); LYMPHOCYTES # (AUTO) 1.3 K/uL (0.8-4.8); MEAN CORPUSCULAR HEMOGLOBIN 30 PG (26.0-33.0); MEAN CORPUSCULAR HGB CONC 33 g/dl (31.0-36.0); MEAN CORPUSCULAR VOLUME 90 fL (82-100); MONOCYTES # (AUTO) 0.9 K/uL (0.1-1.30); MONOCYTES % (AUTO) 13.4 % (2.0-12.0); NEUTROPHILS # (AUTO) 3.9 K/uL (1.8-8.9); NEUTROPHILS % (AUTO) 58.6 % (43.0-81.0); PLATELET COUNT (AUTO) 236 K/uL (150-450); RED BLOOD CELL COUNT(AUTO) 2.24 MIL/uL (4.0-5.2); RED CELL DISTRIBUTION WIDTH 14.7 % (11.5-15.0); WHITE BLOOD COUNT (AUTO) 6.7 K/uL (4.3-11.0)
[2023-10-29 11:35] LABS: HEMATOCRIT 20 % (33-45); HEMOGLOBIN 6.7 g/dL (11.5-14.8)
[2023-10-29 11:44] LABS: CALCIUM, SERUM 8.4 mg/dL (8.5-10.1); CREATININE 6.2 mg/dL (0.6-1.3); POTASSIUM 4.1 mmol/L (3.5-5.1)
[2023-10-29] MEDS: KEY,NONCONTROL,TO KEEP IN PYXI 1 EA MC ONE (16:32)
[2023-10-29] MEDS: PANTOPRAZOLE 40 MG VIAL IV SCH (16:41)
[2023-10-30] VITALS (16 sets, daily range): BP systolic 96–135; BP diastolic 46–66; TEMP 97.8–99.5; O2SAT 95–100
[2023-10-30 09:26] LABS: BASOPHILS # (AUTO) 0.1 K/uL (0.0-0.2); BASOPHILS % (AUTO) 0.8 % (0.0-2.0); EOSINOPHILS # (AUTO) 0.5 K/uL (0.0-0.7); EOSINOPHILS % (AUTO) 6.7 % (0.0-6.0); HEMATOCRIT 23 % (33-45); LYMPHOCYTES # (AUTO) 1.4 K/uL (0.8-4.8); LYMPHOCYTES % (AUTO) 18.3 % (20.0-44.0); MEAN CORPUSCULAR HEMOGLOBIN 30 PG (26.0-33.0); MEAN CORPUSCULAR HGB CONC 34 g/dl (31.0-36.0); MEAN CORPUSCULAR VOLUME 89 fL (82-100); MONOCYTES # (AUTO) 0.8 K/uL (0.1-1.30); MONOCYTES % (AUTO) 9.6 % (2.0-12.0); NEUTROPHILS % (AUTO) 64.6 % (43.0-81.0); PLATELET COUNT (AUTO) 234 K/uL (150-450); RED BLOOD CELL COUNT(AUTO) 2.64 MIL/uL (4.0-5.2); RED CELL DISTRIBUTION WIDTH 14.6 % (11.5-15.0); WHITE BLOOD COUNT (AUTO) 7.8 K/uL (4.3-11.0)
[2023-10-31] VITALS (14 sets, daily range): BP systolic 100–124; BP diastolic 60–66; TEMP 98.5–98.7; O2SAT 96–100
[2023-10-31 08:35] LABS: BASOPHILS % (AUTO) 0.6 % (0.0-2.0); EOSINOPHILS # (AUTO) 0.4 K/uL (0.0-0.7); EOSINOPHILS % (AUTO) 5.2 % (0.0-6.0); HEMATOCRIT 24 % (33-45); HEMOGLOBIN 7.9 g/dL (11.5-14.8); LYMPHOCYTES # (AUTO) 1.3 K/uL (0.8-4.8); LYMPHOCYTES % (AUTO) 15.5 % (20.0-44.0); MEAN CORPUSCULAR HEMOGLOBIN 30 PG (26.0-33.0); MEAN CORPUSCULAR HGB CONC 33 g/dl (31.0-36.0); MEAN CORPUSCULAR VOLUME 90 fL (82-100); MONOCYTES # (AUTO) 0.7 K/uL (0.1-1.30); NEUTROPHILS # (AUTO) 5.7 K/uL (1.8-8.9); NEUTROPHILS % (AUTO) 69.7 % (43.0-81.0); PLATELET COUNT (AUTO) 246 K/uL (150-450); RED BLOOD CELL COUNT(AUTO) 2.67 MIL/uL (4.0-5.2); RED CELL DISTRIBUTION WIDTH 14.6 % (11.5-15.0); WHITE BLOOD COUNT (AUTO) 8.1 K/uL (4.3-11.0)
[2023-10-31 08:49] LABS: IRON, SERUM 47 ug/dl (50-175); TOTAL IRON BINDING CAPACITY 170 ug/dl (250-450)
[2023-10-31 09:08] LABS: FERRITIN 649 ng/mL (8-388)
[2023-10-31] MEDS: PANTOPRAZOLE 40 MG TABLET.DR PO SCH (16:25)
[2023-11-01] VITALS (14 sets, daily range): BP systolic 112–143; BP diastolic 66–72; TEMP 98.5–99; O2SAT 97–100
[2023-11-01 07:54] LABS: OCCULT BLOOD STOOL NEGATIVE (NEGATIVE)
[2023-11-01 16:24] LABS: BASOPHILS # (AUTO) 0.1 K/uL (0.0-0.2); BASOPHILS % (AUTO) 1.4 % (0.0-2.0); EOSINOPHILS # (AUTO) 0.4 K/uL (0.0-0.7); EOSINOPHILS % (AUTO) 6.5 % (0.0-6.0); HEMATOCRIT 24 % (33-45); HEMOGLOBIN 7.6 g/dL (11.5-14.8); LYMPHOCYTES # (AUTO) 1.1 K/uL (0.8-4.8); LYMPHOCYTES % (AUTO) 15.8 % (20.0-44.0); MEAN CORPUSCULAR HEMOGLOBIN 30 PG (26.0-33.0); MEAN CORPUSCULAR HGB CONC 32 g/dl (31.0-36.0); MEAN CORPUSCULAR VOLUME 92 fL (82-100); MONOCYTES # (AUTO) 0.4 K/uL (0.1-1.30); MONOCYTES % (AUTO) 5.8 % (2.0-12.0); NEUTROPHILS # (AUTO) 4.8 K/uL (1.8-8.9); NEUTROPHILS % (AUTO) 70.5 % (43.0-81.0); PLATELET COUNT (AUTO) 222 K/uL (150-450); RED BLOOD CELL COUNT(AUTO) 2.58 MIL/uL (4.0-5.2); RED CELL DISTRIBUTION WIDTH 14.5 % (11.5-15.0); WHITE BLOOD COUNT (AUTO) 6.8 K/uL (4.3-11.0)
[2023-11-01 17:02] LABS: ANISOCYTOSIS 1+; EOSINOPHILS % (MANUAL) 5 % (0-4); LYMPHOCYTES % (MANUAL) 22 % (16-48); MONOCYTES % (MANUAL) 10 % (0-11.0); NEUTROPHILS % (MANUAL) 63 (42-76); PLATELET ESTIMATE ADEQUATE
[2023-11-02] VITALS (14 sets, daily range): BP systolic 100–108; BP diastolic 60–73; TEMP 98.4–99; O2SAT 98–100
[2023-11-02] MEDS: SILVER NITRATE APPLICATOR 1 EA BOX TP STA (10:31)
[2023-11-03] VITALS (13 sets, daily range): BP systolic 104–145; BP diastolic 58–72; TEMP 98.2–99.7; O2SAT 97–100
[2023-11-03 11:47] LABS: BASOPHILS % (AUTO) 0.7 % (0.0-2.0); EOSINOPHILS # (AUTO) 0.5 K/uL (0.0-0.7); EOSINOPHILS % (AUTO) 7.4 % (0.0-6.0); HEMATOCRIT 23 % (33-45); HEMOGLOBIN 7.6 g/dL (11.5-14.8); LYMPHOCYTES # (AUTO) 1.3 K/uL (0.8-4.8); LYMPHOCYTES % (AUTO) 20.3 % (20.0-44.0); MEAN CORPUSCULAR HEMOGLOBIN 30 PG (26.0-33.0); MEAN CORPUSCULAR HGB CONC 32 g/dl (31.0-36.0); MEAN CORPUSCULAR VOLUME 92 fL (82-100); MONOCYTES # (AUTO) 0.5 K/uL (0.1-1.30); MONOCYTES % (AUTO) 7.2 % (2.0-12.0); NEUTROPHILS # (AUTO) 4.2 K/uL (1.8-8.9); NEUTROPHILS % (AUTO) 64.4 % (43.0-81.0); PLATELET COUNT (AUTO) 210 K/uL (150-450); RED BLOOD CELL COUNT(AUTO) 2.52 MIL/uL (4.0-5.2); WHITE BLOOD COUNT (AUTO) 6.5 K/uL (4.3-11.0)
[2023-11-03 11:58] LABS: CALCIUM, SERUM 9.1 mg/dL (8.5-10.1); CREATININE 7.4 mg/dL (0.6-1.3); POTASSIUM 4.7 mmol/L (3.5-5.1)
[2023-11-03] MEDS: EPOETIN ALFA-EPBX 2,000 UNIT/ML VIAL SQ SCH (17:54)
[2023-11-04] VITALS (11 sets, daily range): BP systolic 111–123; BP diastolic 54–60; TEMP 98.2; O2SAT 96–100
== END 2023-11-04 18:33 | DRG 425 ==
LOC: ER 18:43 → TELE1 09-05 00:07 → MEDSG1 09-15 10:08
PROVIDERS: ADMIT Student in an Organized Health Care Education/Training Program; ATTEND Nurse Practitioner Acute Care
PROC: 5A1D70Z Performance of Urinary Filtration, Intermittent, Less than 6 Hours Per Day (ICD-10-PCS; principal; 2023-09-05)
PROC: 0H57XZZ Destruction of Abdomen Skin, External Approach (ICD-10-PCS; 2023-10-05)
PROC: 30233N1 Transfusion of Nonautologous Red Blood Cells into Peripheral Vein, Percutaneous Approach (ICD-10-PCS; 2023-10-29)
DX: E87.5 Hyperkalemia (principal); I13.2 Hypertensive heart and chronic kidney disease with heart failure and with stage 5 chronic kidney disease, or end stage renal disease; J96.10 Chronic respiratory failure, unspecified whether with hypoxia or hypercapnia; N18.6 End stage renal disease; D63.8 Anemia in other chronic diseases classified elsewhere; E83.39 Other disorders of phosphorus metabolism; E11.22 Type 2 diabetes mellitus with diabetic chronic kidney disease; I50.32 Chronic diastolic (congestive) heart failure; E78.5 Hyperlipidemia, unspecified; E66.01 Morbid (severe) obesity due to excess calories; E83.42 Hypomagnesemia; E87.1 Hypo-osmolality and hyponatremia; E87.6 Hypokalemia; G47.33 Obstructive sleep apnea (adult) (pediatric); K59.00 Constipation, unspecified; L30.4 Erythema intertrigo; M89.8X9 Other specified disorders of bone, unspecified site; R13.10 Dysphagia, unspecified; Z79.4 Long term (current) use of insulin; Z79.82 Long term (current) use of aspirin; Z79.899 Other long term (current) drug therapy; Z82.49 Family history of ischemic heart disease and other diseases of the circulatory system; Z86.16 Personal history of COVID-19; Z91.199 Patient's noncompliance with other medical treatment and regimen due to unspecified reason; Z93.1 Gastrostomy status; Z99.2 Dependence on renal dialysis; Z93.0 Tracheostomy status; Z88.5 Allergy status to narcotic agent; Z91.040 Latex allergy status; Z79.51 Long term (current) use of inhaled steroids; Z79.85 Long-term (current) use of injectable non-insulin antidiabetic drugs; Z68.43 Body mass index [BMI] 50.0-59.9, adult
CPT/HCPCS: 31720; 36415; 71045-TC; 80048-TC; 80053-TC; 80076-TC; 82272-TC; 82607-TC; 82728-TC; 82962-TC; 83540-TC; 83735-TC; 84100-TC; 85025-TC; 86704; 86705; 86706; 86803; 86850-TC; 87081-TC; 87340; 90935-TC; 92526; 92611-TC; 94640-TC; 94760-TC; 94799-TC; 97110-TC; 97112-TC; 97530-TC; A4216; A4223; A4623; A6253; A6403; A7526; C9113; G0378; J0885; J1815; J2270; J2916; J3490; J7030; J7050; P9016; P9047; Q0162; Q0177

== ENCOUNTER 2025-07-06 17:56 | Inpatient (IN) | payer MEDICAID ==
[~2025-07-06] VITALS: Ht 162.6 cm; Wt 127.0 kg
[~2025-07-06 17:56] MED LIST changes: -ASPI-992 PO; -AZIT200S48 PO; +CINA30TA2 PO; -FLUT16SP; +FLUT16SP BNOSTRILS; +GEL100GE TP; -HEPA50008 SQ; -HYDR1SOL MC; +LIDO1ADH82 TD; -LIDO1ADH82 TP; -MENT113O TP; +NYST15PO4 TP; -ZINC50TA69 PO
[2025-07-06 18:49] LABS: PLATELET COUNT (AUTO) 156 K/uL (150-450); RED BLOOD CELL COUNT(AUTO) 3.62 MIL/uL (4.0-5.2); RED CELL DISTRIBUTION WIDTH 14.3 % (11.5-15.0); WHITE BLOOD COUNT (AUTO) 5.8 K/uL (4.3-11.0)
[2025-07-06 18:57] LABS: CALCIUM, SERUM 8.4 mg/dL (8.5-10.1); CREATININE 7.3 mg/dL (0.6-1.3); SODIUM SERUM 132.0 mmol/L (136-145); UREA NITROGEN, BLOOD 46.0 mg/dL (7-18)
[2025-07-06 19:02] LABS: INR 1.01 (0.91-1.10)
[2025-07-06 19:52] VITALS: O2SAT 100
[2025-07-06] MEDS ORDERED: ACETAMINOPHEN 325 MG TABLET PO PRN (21:00)
[2025-07-06] MEDS ORDERED: ONDANSETRON HCL/PF 4 MG/2 ML VIAL IVP PRN (21:00)
[2025-07-06] MEDS ORDERED: Z GUARD REMEDY 4 OZ OINT TP PRN (21:00)
[2025-07-07] VITALS (9 sets, daily range): BP systolic 96–109; BP diastolic 60–61; TEMP 98.2; O2SAT 96–100
[2025-07-07] MEDS ORDERED: ALBUTEROL HALF STRENGTH 1.25 MG/3 ML VIAL.NEB NEB PRN (02:00)
[2025-07-07 07:03] LABS: PLATELET COUNT (AUTO) 167 K/uL (150-450); RED BLOOD CELL COUNT(AUTO) 3.59 MIL/uL (4.0-5.2); RED CELL DISTRIBUTION WIDTH 14.3 % (11.5-15.0); WHITE BLOOD COUNT (AUTO) 6.0 K/uL (4.3-11.0)
[2025-07-07 07:17] LABS: CALCIUM, SERUM 8.7 mg/dL (8.5-10.1); PHOSPHORUS 4.4 mg/dL (2.5-4.9); SODIUM SERUM 134.0 mmol/L (136-145); UREA NITROGEN, BLOOD 49.0 mg/dL (7-18)
[2025-07-07] MEDS: PANTOPRAZOLE 40 MG TABLET.DR PO SCH (07:42)
[2025-07-07 09:17] LABS: CREATININE 7.9 mg/dL (0.6-1.3)
[2025-07-07] MEDS: THERAHONEY GEL 1.5 OZ TUBE TP SCH (09:37)
[2025-07-07] MEDS ORDERED: HYDR-4076 PO (10:18)
[2025-07-07] MEDS ORDERED: METH750T3 PO (10:18)
[2025-07-07] MEDS ORDERED: AMLO5TAB4 PO (10:18)
[2025-07-07] MEDS ORDERED: FOLI0.4T6 PO (10:18)
[2025-07-07] MEDS ORDERED: CHLO473M2 MM (10:18)
[2025-07-07] MEDS ORDERED: NAPR-1009 PO (10:18)
[2025-07-07] MEDS ORDERED: ARGI1POW13 PO (10:18)
[2025-07-07] MEDS ORDERED: IPRA0.2S49 IH (10:18)
[2025-07-07] MEDS ORDERED: CHOL500052 PO (10:18)
[2025-07-07] MEDS ORDERED: BENZ28CR VG (10:18)
[2025-07-07] MEDS ORDERED: SEVE0.8P3 PO (10:18)
[2025-07-07] MEDS ORDERED: CRAN425C6 PO (10:18)
[2025-07-07] MEDS ORDERED: LIDO30AD10 TD (10:18)
[2025-07-07] MEDS ORDERED: MIDO5TAB4 PO (10:18)
[2025-07-07] MEDS ORDERED: ACET1OOV6 HHN (10:18)
[2025-07-07] MEDS ORDERED: PREG75CA PO (10:18)
[2025-07-07] MEDS ORDERED: POLY17PO4 PO (10:18)
[2025-07-07] MEDS ORDERED: HYDR-4209 PO (10:18)
[2025-07-07] MEDS: SODIUM ZIRCONIUM CYCLOSILICATE 10 GM POWD.PACK PO ONE (11:55)
[2025-07-07] MEDS ORDERED: IPRATROPIUM NEB FS 0.5 MG/2.5 ML AMPUL.NEB IH PRN (14:30)
[2025-07-07] MEDS ORDERED: AMLODIPINE BESYLATE 2.5 MG TABLET PO PRN (14:30)
[2025-07-07] MEDS ORDERED: METHOCARBAMOL (750MG) 750 MG TABLET PO PRN (14:30)
[2025-07-07] MEDS ORDERED: OXYMETAZOLINE HCL NASAL SPRAY 30 ML BOTTLE NS PRN (14:30)
[2025-07-07] MEDS ORDERED: LIDOCAINE 5% (PATCH) 1 EA PATCH TP PRN (14:30)
[2025-07-07] MEDS ORDERED: DICLOFENAC TOPICAL 100 GM TUBE TP PRN (14:30)
[2025-07-07] MEDS ORDERED: MIDODRINE HCL (5MG) 5 MG TABLET PO PRN (14:30)
[2025-07-07] MEDS ORDERED: CALCIUM CARBONATE 500 MG TAB.CHEW PO PRN (14:30)
[2025-07-07] MEDS ORDERED: Medication Not On Formulary EA (Ondansetron Hcl 4 MG) PO PRN (14:30)
[2025-07-07] MEDS ORDERED: ACETAMINOPHEN ES 500 MG TABLET PO PRN (14:30)
[2025-07-07] MEDS ORDERED: SIMETHICONE 80 MG TAB.CHEW PO PRN (14:30)
[2025-07-07] MEDS ORDERED: ACETYLCYSTEINE 10% SOLN 400 MG/4 ML VIAL HHN PRN (14:30)
[2025-07-07] MEDS ORDERED: BISACODYL SUPP (10 MG) 10 MG/SUPP.RECT SUPP.RECT RC PRN (14:30)
[2025-07-07] MEDS ORDERED: ERGOCALCIFEROL (VITAMIN D 2) 50,000 UNIT CAPSULE PO SCH (15:00)
[2025-07-07] MEDS ORDERED: MENTHOL/CETYLPYRD (CEPACOL) 1 LOZ LOZENGE PO PRN (15:00)
[2025-07-07] MEDS: CHLORHEXIDINE GLUCONATE 15 ML UDC MM SCH (17:36)
[2025-07-07] MEDS: FLUTICASONE PROPIONATE 16 GM BOTTLE NS SCH (17:37)
[2025-07-07] MEDS: PROSOURCE / PROSTAT (PYXIS) 30 ML UDC PO SCH (17:37)
[2025-07-07] MEDS: SEVELAMER CARBONATE 800 MG POWD.PACK PO SCH (17:49)
[2025-07-07] MEDS: SENNOSIDES 8.6 MG TABLET PO SCH (17:50)
[2025-07-07] MEDS: GABAPENTIN 100 MG CAPSULE PO SCH (20:08)
[2025-07-07] MEDS: NAPROXEN 500 MG TABLET PO PRN (20:10)
[2025-07-07] MEDS: ALBUTEROL FS 2.5 MG/3 ML VIAL.NEB IH SCH (20:16)
[2025-07-07] MEDS ORDERED: Medication Not On Formulary EA (Pregabalin (Lyrica) 75 MG) PO SCH (21:00)
[2025-07-07] MEDS: POLYETHYLENE GLYCOL 3350 17 GM POWD.PACK PO SCH (21:08)
[2025-07-07] MEDS: TRAZODONE 50 MG TABLET PO SCH (21:08)
[2025-07-08] VITALS (14 sets, daily range): BP systolic 97–144; BP diastolic 58–73; TEMP 97.5–98.4; O2SAT 95–100
[2025-07-08 07:41] LABS: PLATELET COUNT (AUTO) 151 K/uL (150-450); RED BLOOD CELL COUNT(AUTO) 3.52 MIL/uL (4.0-5.2); RED CELL DISTRIBUTION WIDTH 13.9 % (11.5-15.0); WHITE BLOOD COUNT (AUTO) 5.4 K/uL (4.3-11.0)
[2025-07-08 07:55] LABS: CALCIUM, SERUM 8.5 mg/dL (8.5-10.1); CREATININE 6.9 mg/dL (0.6-1.3); PHOSPHORUS 3.7 mg/dL (2.5-4.9); SODIUM SERUM 137.0 mmol/L (136-145); UREA NITROGEN, BLOOD 37.0 mg/dL (7-18)
[2025-07-08] MEDS: ARGININE/GLUTAMINE/CALCIUM BMB 1 EACH POWD.PACK PO SCH (08:43)
[2025-07-08] MEDS: AMLODIPINE BESYLATE 5 MG TABLET PO SCH (08:43)
[2025-07-08] MEDS: FOLIC ACID 1 MG TABLET PO SCH (08:43)
[2025-07-08] MEDS: VIT B CMPLX 3/FA/VIT C/BIOTIN 1 TAB TABLET PO SCH (08:43)
[2025-07-08] MEDS: LIDOCAINE 5% (PATCH) 1 EA PATCH TP SCH (08:44)
[2025-07-08] MEDS: FLUOXETINE HCL 20 MG CAPSULE PO SCH (08:44)
[2025-07-08] MEDS ORDERED: PATIROMER CALCIUM SORBITEX 16.8 GM PO SCH (09:00)
[2025-07-08] MEDS: MIDODRINE HCL (5MG) 5 MG TABLET PO SCH (14:46)
[2025-07-09] VITALS (10 sets, daily range): BP systolic 100–123; BP diastolic 55–71; TEMP 97.7–98.4; O2SAT 95–100
[2025-07-09 07:45] LABS: PLATELET COUNT (AUTO) 173 K/uL (150-450); RED BLOOD CELL COUNT(AUTO) 3.80 MIL/uL (4.0-5.2); RED CELL DISTRIBUTION WIDTH 13.9 % (11.5-15.0); WHITE BLOOD COUNT (AUTO) 6.7 K/uL (4.3-11.0)
[2025-07-09 07:59] LABS: CALCIUM, SERUM 8.7 mg/dL (8.5-10.1); CREATININE 6.1 mg/dL (0.6-1.3); SODIUM SERUM 136.0 mmol/L (136-145); UREA NITROGEN, BLOOD 30.0 mg/dL (7-18)
[2025-07-09] MEDS: HYDROCODONE/APAP 5/325MG TABLET PO PRN (08:34)
== END 2025-07-09 16:32 | DRG 206 ==
LOC: ER 18:03 → MEDSG1 23:00 → TELE1 07-07
PROVIDERS: ADMIT Registered Nurse Psychiatric/Mental Health; ATTEND Nurse Practitioner Family
PROC: 5A1945Z Respiratory Ventilation, 24-96 Consecutive Hours (ICD-10-PCS; principal; 2025-07-06)
PROC: 5A1D70Z Performance of Urinary Filtration, Intermittent, Less than 6 Hours Per Day (ICD-10-PCS; 2025-07-07)
DX: T82.41XA Breakdown (mechanical) of vascular dialysis catheter, initial encounter (principal); Z99.11 Dependence on respirator [ventilator] status; I13.2 Hypertensive heart and chronic kidney disease with heart failure and with stage 5 chronic kidney disease, or end stage renal disease; L89.312 Pressure ulcer of right buttock, stage 2; E83.51 Hypocalcemia; E87.1 Hypo-osmolality and hyponatremia; R13.10 Dysphagia, unspecified; I50.9 Heart failure, unspecified; N18.6 End stage renal disease; Z99.2 Dependence on renal dialysis; J96.10 Chronic respiratory failure, unspecified whether with hypoxia or hypercapnia; Z93.0 Tracheostomy status; Y71.2 Prosthetic and other implants, materials and accessory cardiovascular devices associated with adverse incidents; Y92.129 Unspecified place in nursing home as the place of occurrence of the external cause; E11.22 Type 2 diabetes mellitus with diabetic chronic kidney disease; Z93.1 Gastrostomy status; K59.00 Constipation, unspecified; E66.01 Morbid (severe) obesity due to excess calories; E78.5 Hyperlipidemia, unspecified; Z91.040 Latex allergy status; Z79.51 Long term (current) use of inhaled steroids; Z79.85 Long-term (current) use of injectable non-insulin antidiabetic drugs; Z79.899 Other long term (current) drug therapy; D64.9 Anemia, unspecified; Z82.49 Family history of ischemic heart disease and other diseases of the circulatory system; E87.5 Hyperkalemia; G47.33 Obstructive sleep apnea (adult) (pediatric); Z68.42 Body mass index [BMI] 45.0-49.9, adult; M89.8X9 Other specified disorders of bone, unspecified site
CPT/HCPCS: 31720; 36415; 71045-TC; 80048-TC; 83735-TC; 84100-TC; 85025-TC; 85730-TC; 90935-TC; 94002-TC; 94003-TC; 94640-TC; 94762-TC; 94799-TC; A4623; A6403; G0378; J7030